=== PATIENT | female | born 1965 | race Caucasian/White ===

== ENCOUNTER 2018-02-05 07:12 | Inpatient (IN) | payer OTHER ==
[2018-02-05] MEDS ORDERED: ALBUTEROL NEBULIZED 2.5 MG/3 ML INHALATION STA ×2 (07:14→08:28)
[2018-02-05] MEDS ORDERED: methylPREDNISolone SOD SUCCI 125 MG/2 ML VIAL IV STA (07:14)
[2018-02-05] MEDS ORDERED: IPRATROPIUM 0.5 MG/2.5 ML NEBU INHALATION STA (07:14)
--- NOTE | 2018-02-05 07:17 | ED ---
General Adult HPI - General Stated complaint: JALEEL Time Seen by Provider: 02/05/18 07:14 Source: patient, RN notes reviewed, old records reviewed - History of Present Illness Initial comments: 52-year-old female history of asthma presents with 1 week of worsening cough and dyspnea. Patient has been out of her nebulized albuterol for the past one week. She is a current every day smoker. Denies chest pain associated with her symptoms. Denies fever or chills. Cough was initially productive but patient states that it has become dry over the past several days. Denies abdominal pain nausea vomiting. Denies lower extremity swelling or calf pain. - Related Data Home Medications Medication Instructions Recorded Confirmed Albuterol Sulfate [Ventolin HFA] 2 puff INHALATION RT-Q4H PRN 09/25/13 12/31/15 Albuterol Nebulized [Ventolin 2.5 mg INHALATION RT-BID 10/12/14 12/31/15 Nebulized] Dextroamphetamine/Amphetamine 20 mg PO BID 12/31/15 12/31/15 [Adderall] QUEtiapine [SEROquel] 100 mg PO HS 12/31/15 12/31/15 Venlafaxine HCl ER [Effexor XR] 150 mg PO DAILY 12/31/15 12/31/15 buPROPion SR [Wellbutrin SR] 150 mg PO BID 12/31/15 12/31/15 Previous Rx's Medication Instructions Recorded ALPRAZolam [Xanax] 1 mg PO Q8H PRN #20 tablet 01/02/16 Azithromycin [Zithromax] 500 mg PO DAILY #4 tab 01/02/16 Budesonide-Formot 160-4.5 Mcg 2 puff INHALATION RT-BID #1 puff 01/02/16 [Symbicort 160-4.5 Mcg Inhaler] HYDROcodone/APAP 10-325MG [[place] 1 tab PO TID PRN #20 tab 01/02/16 10-325] Ipratropium-Albuterol Nebulize 3 ml INHALATION QID #120 ampul.neb 01/02/16 [Duoneb 0.5 mg-3 mg/3 ml Soln] Nicotine 21Mg/24Hr Patch [Habitrol] 1 patch TRANSDERM DAILY #30 patch 01/02/16 predniSONE 10 mg PO DIRECTED #40 tab 01/02/16 Allergies Allergy/AdvReac Type Severity Reaction Status Date / Time No Known Allergies Allergy Verified 02/05/18 07:18 Review of Systems ROS Statement: Those systems with pertinent positive or pertinent negative responses have been documented in the HPI. ROS Other: All systems not noted in ROS Statement are negative. Past Medical History Past Medical History: COPD, Hearing Disorder / Deafness, Hypertension Additional Past Medical History / Comment(s): 10/12/14 Pt presented to [facility] ER with difficulty in breathing with onset a day or so ago. Pt has an occasional nonproductive cough. Pt is currently in ER on bipap. Other HX: bilateral [place]-left worse than right, leakage of urine, states she has high BP; not on medication, Upper and lower BACK PAIN, EMPHYSEMA, trachial bronchitis, RLS, insomnia. History of Any Multi-Drug Resistant Organisms: None Reported Past Surgical History: Ear Surgery Additional Past Surgical History / Comment(s): Multiple bilateral ear tubes as child; has had L ear reconstruction; has been told she needs hearing Aides Past Anesthesia/Blood Transfusion Reactions: No Reported Reaction Additional Past Anesthesia/Blood Transfusion Reaction / Comment(s): Pt has no problems with anesthetics and has never recieved blood. Past Psychological History: ADD/ADHD, Bipolar, Depression, Panic Disorder Additional Psychological History / Comment(s): Pt lives with maria eugenia. She is normally independent. She is hearing impaired. She uses a cane prn. She does not drive- her friend or someone from [facility] drive her. She has a nebulizer. She does not have home oxygen. Smoking Status: Current every day smoker Past Alcohol Use History: None Reported Additional Past Alcohol Use History / Comment(s): Pt started smoking in 1984 and used to smoke approx. 2 ppd for possibly 40 yrs. She recently cut down to 10 cigs a day about 2 weeks ago and the past 3-4 days she has smoked 3 cigs a day. Past Drug Use History: None Reported - Past Family History Mother Family Medical History: Cancer Additional Family Medical History / Comment(s): Mother had "a few kinds of cancers" and from cancer at age 60 yrs. Father History Unknown: Yes Family Medical History: Unable to Obtain Additional Family Medical History / Comment(s): Pt does not know her father. General Exam General appearance: alert, in no apparent distress Head exam: Present: atraumatic, normocephalic Eye exam: Present: normal appearance, PERRL ENT exam: Present: normal exam Respiratory exam: Present: respiratory distress, wheezes, accessory muscle use, decreased breath sounds, prolonged expiratory Cardiovascular Exam: Present: normal rhythm, tachycardia GI/Abdominal exam: Present: soft. Absent: distended, tenderness Extremities exam: Present: normal inspection, normal capillary refill. Absent: pedal edema, calf tenderness Neurological exam: Present: alert, oriented X3, CN II-XII intact, motor sensory deficit Psychiatric exam: Present: normal affect, normal mood Skin exam: Present: warm, dry, intact. Absent: cyanosis, diaphoretic Course Vital Signs 02/05/18 02/05/18 02/05/18 07:18 07:27 07:45 Temperature 98.1 F Pulse Rate 116 H 106 H 111 H Respiratory 36 H Rate Blood Pressure 148/104 O2 Sat by Pulse 96 Oximetry 02/05/18 02/05/18 02/05/18 08:23 08:33 08:42 Temperature Pulse Rate 111 H 110 H 112 H Respiratory 30 H Rate Blood Pressure 146/86 O2 Sat by Pulse 97 Oximetry EKG Findings - EKG Comments: EKG Findings:: EKG: Sinus tachycardia, possible left atrial enlargement, incomplete right bundle branch block, rate of 113, [place] interval 166, QRS duration 92, QTC 441, no ST segment elevation Medical Decision Making - Medical Decision Making 52-year-old female history of COPD and asthma presenting with dyspnea and cough. Patient is in moderate respiratory distress on initial evaluation. Exam consistent with COPD. Chest x-ray obtained, negative for focal pneumonia, normal CBC, normal CMP. Patient started on IV antibiotics, given albuterol, Atrovent in the emergency department. She will be admitted for further treatment of COPD exacerbation. Case discussed with admitting physician Dr. Jane, she will accept admission. Pulmonology placed on consult. - Lab Data Result diagrams: 02/05/18 07:25 02/05/18 07:25 Lab Results 02/05/18 02/05/18 02/05/18 Range/Units 07:25 07:25 07:25 WBC 5.7 (3.8-10.6) k/uL RBC 5.03 (3.80-5.40) m/uL Hgb 15.6 (11.4-16.0) gm/dL Hct 48.1 H (34.0-46.0) % MCV 95.5 (80.0-100.0) fL MCH 30.9 (25.0-35.0) pg MCHC 32.4 (31.0-37.0) g/dL RDW 13.1 (11.5-15.5) % Plt Count 227 (150-450) k/uL Neutrophils % 56 % Lymphocytes % 27 % Monocytes % 4 % Eosinophils % 11 % Basophils % 1 % Neutrophils # 3.2 (1.3-7.7) k/uL Lymphocytes # 1.5 (1.0-4.8) k/uL Monocytes # 0.2 (0-1.0) k/uL Eosinophils # 0.6 (0-0.7) k/uL Basophils # 0.0 (0-0.2) k/uL PT (9.0-12.0) sec INR (<1.2) APTT (22.0-30.0) sec Sodium 141 (137-145) mmol/L Potassium 4.3 (3.5-5.1) mmol/L Chloride 107 (98-107) mmol/L Carbon Dioxide 26 (22-30) mmol/L Anion Gap 8 mmol/L BUN 11 (7-17) mg/dL Creatinine 0.61 (0.52-1.04) mg/dL Est GFR (CKD-EPI)AfAm >90 (>60 ml/min/1.73 sqM) Est GFR (CKD-EPI)NonAf >90 (>60 ml/min/1.73 sqM) Glucose 138 H (74-99) mg/dL Plasma Lactic Acid Sedrick (0.7-2.0) mmol/L Calcium 9.5 (8.4-10.2) mg/dL Magnesium 2.0 (1.6-2.3) mg/dL Total Bilirubin 0.3 (0.2-1.3) mg/dL AST 17 (14-36) U/L ALT 28 (9-52) U/L Alkaline Phosphatase 78 (38-126) U/L Total Creatine Kinase 41 (30-135) U/L CK-MB (CK-2) 1.4 (0.0-2.4) ng/mL CK-MB (CK-2) Rel Index 3.4 Troponin I 0.017 (0.000-0.034) ng/mL NT-Pro-B Natriuret Pep pg/mL Total Protein 6.7 (6.3-8.2) g/dL Albumin 4.0 (3.5-5.0) g/dL 02/05/18 02/05/18 02/05/18 Range/Units 07:25 07:25 07:25 WBC (3.8-10.6) k/uL RBC (3.80-5.40) m/uL Hgb (11.4-16.0) gm/dL Hct (34.0-46.0) % MCV (80.0-100.0) fL MCH (25.0-35.0) pg MCHC (31.0-37.0) g/dL RDW (11.5-15.5) % Plt Count (150-450) k/uL Neutrophils % % Lymphocytes % % Monocytes % % Eosinophils % % Basophils % % Neutrophils # (1.3-7.7) k/uL Lymphocytes # (1.0-4.8) k/uL Monocytes # (0-1.0) k/uL Eosinophils # (0-0.7) k/uL Basophils # (0-0.2) k/uL PT 9.4 (9.0-12.0) sec INR 0.9 (<1.2) APTT 25.0 (22.0-30.0) sec Sodium (137-145) mmol/L Potassium (3.5-5.1) mmol/L Chloride (98-107) mmol/L Carbon Dioxide (22-30) mmol/L Anion Gap mmol/L BUN (7-17) mg/dL Creatinine (0.52-1.04) mg/dL Est GFR (CKD-EPI)AfAm (>60 ml/min/1.73 sqM) Est GFR (CKD-EPI)NonAf (>60 ml/min/1.73 sqM) Glucose (74-99) mg/dL Plasma Lactic Acid Sedrick 0.7 (0.7-2.0) mmol/L Calcium (8.4-10.2) mg/dL Magnesium (1.6-2.3) mg/dL Total Bilirubin (0.2-1.3) mg/dL AST (14-36) U/L ALT (9-52) U/L Alkaline Phosphatase (38-126) U/L Total Creatine Kinase (30-135) U/L CK-MB (CK-2) (0.0-2.4) ng/mL CK-MB (CK-2) Rel Index Troponin I (0.000-0.034) ng/mL NT-Pro-B Natriuret Pep 16 pg/mL Total Protein (6.3-8.2) g/dL Albumin (3.5-5.0) g/dL Critical Care Time Critical Care Time: Yes Total Critical Care Time: 35 Disposition Clinical Impression: Acute exacerbation of chronic obstructive airways disease Disposition: ADMITTED IP TO THIS HOSP Condition: Stable Is patient prescribed a controlled substance at d/c from ED?: No Referrals: Natasha Figueroa MD [Primary Care Provider] - 1-2 days Decision to Admit Reason: Admit from EC Decision Date: 02/05/18 Decision Time: 08:48
[2018-02-05 07:48] LABS: INR 0.9 (<1.2); Prothrombin Time 9.4 sec (9.0-12.0)
[2018-02-05 07:52] LABS: ALT 28 U/L (9-52); AST 17 U/L (14-36); Alkaline Phosphatase 78 U/L (38-126); Anion Gap 8 mmol/L; Basophils % (A) 1 %; Blood Urea Nitrogen 11 mg/dL (7-17); Calcium 9.5 mg/dL (8.4-10.2); Carbon Dioxide 26 mmol/L (22-30); Chloride 107 mmol/L (98-107); Eosinophils # (A) 0.6 k/uL (0-0.7); Eosinophils % (A) 11 %; Glucose 138 mg/dL (74-99); HCT 48.1 % (34.0-46.0); HGB 15.6 gm/dL (11.4-16.0); Lymphocytes # (A) 1.5 k/uL (1.0-4.8); Lymphocytes % (A) 27 %; MCH 30.9 pg (25.0-35.0); MCHC 32.4 g/dL (31.0-37.0); MCV 95.5 fL (80.0-100.0); Mean Platelet Volume 7.2; Monocytes # (A) 0.2 k/uL (0-1.0); Monocytes % (A) 4 %; Neutrophils # (A) 3.2 k/uL (1.3-7.7); Neutrophils % (A) 56 %; Platelet Count 227 k/uL (150-450); Potassium 4.3 mmol/L (3.5-5.1); RBC 5.03 m/uL (3.80-5.40); RDW 13.1 % (11.5-15.5); Sodium 141 mmol/L (137-145); Total Bilirubin 0.3 mg/dL (0.2-1.3); Total Protein 6.7 g/dL (6.3-8.2); WBC 5.7 k/uL (3.8-10.6)
[2018-02-05 08:14] LABS: Creatine Kinase MB 1.4 ng/mL (0.0-2.4); Troponin I 0.017 ng/mL (0.000-0.034)
[2018-02-05] MEDS ORDERED: IPRATROPIUM-ALBUTEROL 3 ML NEB INHALATION STA (08:27)
--- NOTE | 2018-02-05 08:36 | XR ---
EXAMINATION TYPE: XR chest 2V DATE OF EXAM: 02/05/2018 HISTORY: difficulty breathing. REFERENCE: Previous study dated 12/31/2015. FINDINGS: Lung volumes are prominent. The lungs are clear. Pleural space are clear. The heart is not enlarged. IMPRESSION: CORRELATE FOR COPD.
[2018-02-05] MEDS ORDERED: ASPIRIN 325 MG TAB PO STA (08:44)
[2018-02-05] MEDS ORDERED: IPRATROPIUM-ALBUTEROL 3 ML NEB INHALATION PRN (08:45)
[2018-02-05] MEDS ORDERED: SODIUM CHLORIDE 0.9% 500 ML 500 ML IV ONE (08:46)
[2018-02-05] MEDS ORDERED: ALBUTEROL NEBULIZED 2.5 MG/3 ML INHALATION PRN (08:46)
[2018-02-05] MEDS: AZITHROMYCIN 500 MG TAB PO SCH (09:15)
[2018-02-05] MEDS: SODIUM CHLORIDE 0.9% 1,000 ML IV SCH ×2 (09:18→19:59)
[2018-02-05 10:47] VITALS: BMI 23.0
[2018-02-05] MEDS: IPRATROPIUM-ALBUTEROL 3 ML NEB INHALATION SCH ×3 (11:12→19:56)
[2018-02-05] MEDS ORDERED: ACETAMINOPHEN TAB 325 MG TAB PO PRN (11:38)
[2018-02-05] MEDS ORDERED: NALOXONE 0.4 MG/ML 1 ML VIAL IV PRN (11:38)
--- NOTE | 2018-02-05 11:50 | P.HPIM ---
History of Present Illness H&P Date: 02/05/18 Chief Complaint: COPD Exacerbation 52-year-old female with past medical history of bipolar disorder, anxiety and COPD presents the ED for shortness of breath cough. Patient reports a cough productive of green sputum for the past 2 weeks. Her cough is associated with shortness of breath and wheezing. She's tried cough medications [id number]. Over the last 3-4 days, her wheezing has gotten so bad which prompted her to come to the ED. Patient reports a trigger being changes in weather and overexertion. Patient reports smoking 1-2 packs of cigarettes daily since age 21. She denies any alcohol or illicit drug use. Patient denies any headaches, nausea, vomiting, fever, palpitations, changes in urination or bowel habits. No changes in appetite or weight. She denies any exertional shortness of breath or orthopnea. Patient denies any lower extremity swelling as well. Patient reports chest pain, but only when she coughs. In the ED, CBC and CMP were unremarkable except for a glucose of 138. Initial troponin was 0.017, EKG showing sinus tachycardia with incomplete RBBB. BNP was 16. Chest x-ray is consistent with COPD. Patient is admitted for COPD exacerbation, pulmonology on consult. Review of Systems All systems: negative Past Medical History Past Medical History: COPD, Hearing Disorder / Deafness, Hypertension Additional Past Medical History / Comment(s): Other HX: Upper and lower BACK PAIN, EMPHYSEMA, trachial bronchitis, RLS, insomnia. History of Any Multi-Drug Resistant Organisms: None Reported Past Surgical History: Ear Surgery Additional Past Surgical History / Comment(s): Multiple bilateral ear tubes as child; has had L ear reconstruction; has been told she needs hearing Aides Past Anesthesia/Blood Transfusion Reactions: No Reported Reaction Additional Past Anesthesia/Blood Transfusion Reaction / Comment(s): Pt has no problems with anesthetics and has never recieved blood. Past Psychological History: ADD/ADHD, Bipolar, Depression, Panic Disorder Additional Psychological History / Comment(s): She has a nebulizer. She have home oxygen, she uses prn, 3-4 liters. 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 Smoking Status: Current every day smoker Past Alcohol Use History: Occasional Past Drug Use History: None Reported - Past Family History Mother Family Medical History: Cancer Additional Family Medical History / Comment(s): Mother had "a few kinds of cancers" and from cancer at age 60 yrs. Father History Unknown: Yes Family Medical History: Unable to Obtain Additional Family Medical History / Comment(s): Pt does not know her father. Medications and Allergies Home Medications Medication Instructions Recorded Confirmed Type Albuterol Sulfate [Ventolin HFA] 2 puff INHALATION RT-Q4H PRN 09/25/13 02/05/18 History Albuterol Nebulized [Ventolin 2.5 mg INHALATION RT-Q6H PRN 10/12/14 02/05/18 History Nebulized] QUEtiapine [SEROquel] 100 mg PO HS 12/31/15 02/05/18 History Budesonide-Formot 160-4.5 Mcg 2 puff INHALATION RT-BID #1 puff 01/02/16 Rx [Symbicort 160-4.5 Mcg Inhaler] HYDROcodone/APAP 10-325MG [[place] 1 tab PO TID PRN #20 tab 01/02/16 02/05/18 Rx 10-325] ALPRAZolam [Xanax] 1 mg PO TID PRN 02/05/18 02/05/18 History Sertraline [Zoloft] 150 mg PO DAILY 02/05/18 02/05/18 History predniSONE 5 mg PO DAILY 02/05/18 02/05/18 History rOPINIRole HCL [Requip] 0.5 mg PO HS 02/05/18 02/05/18 History Allergies Allergy/AdvReac Type Severity Reaction Status Date / Time No Known Allergies Allergy Verified 02/05/18 11:17 Physical Exam Vitals: Vital Signs Temp Pulse Pulse Resp BP BP Pulse Ox 02/05/18 11:24 102 H 02/05/18 11:14 100 02/05/18 10:00 97.9 F 111 H 22 135/78 96 02/05/18 09:22 98.2 F 117 H 28 H 116/78 95 02/05/18 08:42 112 H 02/05/18 08:33 110 H 02/05/18 08:23 111 H 30 H 146/86 97 02/05/18 07:45 111 H 02/05/18 07:27 106 H 02/05/18 07:18 98.1 F 116 H 36 H 148/104 96 Intake and Output 11/09/18 11/10/18 11/10/18 22:59 06:59 14:59 Other: Weight 58.9 kg General: [non toxic], [no distress], [appears at stated age] Derm: [warm], [dry] Head: [atraumatic], [normocephalic], [symmetric] Eyes: [EOMI], [no lid lag], [anicteric sclera] Mouth: [no lip lesion], [mucus membranes moist] Cardiovascular: [S1S2 reg], [no murmur], [positive posterior tibial pulse bilateral], Lungs: [Decreased breath sounds with poor air entry bilaterally with expiratory wheezes], [no rhonchi, no rales] , [no accessory muscle use] Abdominal: [soft], [ nontender to palpation], [no guarding], [no appreciable organomegaly] Ext: [no gross muscle atrophy], [no edema], [no contractures] Neuro: [ CN II-XI grossly intact], [no focal neuro deficits] Psych: [Alert], [oriented], [appropriate affect] Results CBC & Chem 7: 02/05/18 07:25 02/05/18 07:25 Labs: Abnormal Lab Results - Last 24 Hours (Table) 02/05/18 02/05/18 Range/Units 07:25 07:25 Hct 48.1 H (34.0-46.0) % Glucose 138 H (74-99) mg/dL Thrombosis Risk Factor Assmnt - Choose All That Apply Any of the Below Risk Factors Present?: Yes Each Factor Represents 1 point: Abnormal pulmonary function (COPD), Age 41-60 years Other Risk Factors: No Other congenital or acquired thrombophilia - If yes, enter type in comment: No Thrombosis Risk Factor Assessment Total Risk Factor Score: 2 Thrombosis Risk Factor Assessment Level: Low Risk Assessment and Plan Assessment: Assessment and Plan 1. COPD exacerbation: BNP 16, low suspicion for HF. Likely triggered by smoking , changes in weather and viral URI/chronic bronchitis. Patient is afebrile with no leukocytosis. CXR findings consistent with COPD. O2 per NC to maintain O2 sat > 92%. Continue DuoNeb QID scheduled, Symbicort 2 puff BID, SoluMedrol 60 mg IV Q6H. Start Azithromycin 500 mg PO QD x 3 days for acute bronchitis. Pain management with Tylenol and [place] PRN (chest pain associated only with cough). FU BCx, Pulmonology consult 2. Bipolar disorder and Anxiety: Stable. Continue Seroquel 100 mg PO QHS, Sertraline 150 mg PO QD and Xanax 1 mg PO TID PRN. 3. RLS: Stable. Continue Ropinirole 0.5 mg PO QHS. 4. DVT Prophylaxis: SCD boots only.
[2018-02-05 11:51] LABS: Glucose,Whole Blood 182 mg/dL (75-99)
[2018-02-05] MEDS: ALPRAZolam 1 MG TAB PO PRN ×2 (12:36→22:24)
[2018-02-05] MEDS: HYDROcodone/APAP 10-325MG 1 EACH TAB PO PRN ×2 (12:38→19:57)
[2018-02-05] MEDS: INSULIN ASPART 100 UNIT/ML 1 ML 10 ML VIAL SQ SCH ×3 (12:38→20:54)
[2018-02-05] MEDS: methylPREDNISolone SOD SUCCI 125 MG/2 ML VIAL IV SCH ×3 (12:42→23:31)
--- NOTE | 2018-02-05 12:53 | P.CNPUL ---
History of Present Illness Consult date: 02/05/18 Reason for consult: dyspnea, cough, COPD, hypoxemia, abnormal CXR/CT Chief complaint: COPD exacerbation, shortness of breath History of present illness: Pulmonary/critical care consultation dated 02/05/2018 52-year-old female with a history of COPD. The patient has a history of heavy tobacco use. The patient sees a Dr. Figueroa as her primary doctor. She still smoking. She's been smoking for many many years. The patient comes in with chest tightness wheezing coughing and shortness of breath. Coughing up some white phlegm. No fever or chills. Not coughing up any blood. She's been counseled about the importance of smoking cessation but continues to smoke. She sees my partner. She apparently has an FEV1 that is 20% of predicted giving her stage IV chronic lung disease. In addition to COPD, she has a history of hearing disorder and hypertension. She also suffers from insomnia and restless leg syndrome. Review of Systems A 14 point review of system is positive for shortness of breath and tightness wheezing and cough. She is producing a small amount of white phlegm. Not coughing up any blood. Past Medical History Past Medical History: COPD, Hearing Disorder / Deafness, Hypertension Additional Past Medical History / Comment(s): Other HX: Upper and lower BACK PAIN, EMPHYSEMA, trachial bronchitis, RLS, insomnia. History of Any Multi-Drug Resistant Organisms: None Reported Past Surgical History: Ear Surgery Additional Past Surgical History / Comment(s): Multiple bilateral ear tubes as child; has had L ear reconstruction; has been told she needs hearing Aides Past Anesthesia/Blood Transfusion Reactions: No Reported Reaction Additional Past Anesthesia/Blood Transfusion Reaction / Comment(s): Pt has no problems with anesthetics and has never recieved blood. Past Psychological History: ADD/ADHD, Bipolar, Depression, Panic Disorder Additional Psychological History / Comment(s): She has a nebulizer. She have home oxygen, she uses prn, 3-4 liters. 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 Smoking Status: Current every day smoker Past Alcohol Use History: Occasional Past Drug Use History: None Reported - Past Family History Mother Family Medical History: Cancer Additional Family Medical History / Comment(s): Mother had "a few kinds of cancers" and from cancer at age 60 yrs. Father History Unknown: Yes Family Medical History: Unable to Obtain Additional Family Medical History / Comment(s): Pt does not know her father. Medications and Allergies Home Medications Medication Instructions Recorded Confirmed Type Albuterol Sulfate [Ventolin HFA] 2 puff INHALATION RT-Q4H PRN 09/25/13 02/05/18 History Albuterol Nebulized [Ventolin 2.5 mg INHALATION RT-Q6H PRN 10/12/14 02/05/18 History Nebulized] QUEtiapine [SEROquel] 100 mg PO HS 12/31/15 02/05/18 History Budesonide-Formot 160-4.5 Mcg 2 puff INHALATION RT-BID #1 puff 01/02/16 Rx [Symbicort 160-4.5 Mcg Inhaler] HYDROcodone/APAP 10-325MG [[place] 1 tab PO TID PRN #20 tab 01/02/16 02/05/18 Rx 10-325] ALPRAZolam [Xanax] 1 mg PO TID PRN 02/05/18 02/05/18 History Sertraline [Zoloft] 150 mg PO DAILY 02/05/18 02/05/18 History predniSONE 5 mg PO DAILY 02/05/18 02/05/18 History rOPINIRole HCL [Requip] 0.5 mg PO HS 02/05/18 02/05/18 History Allergies Allergy/AdvReac Type Severity Reaction Status Date / Time No Known Allergies Allergy Verified 02/05/18 11:17 Physical Exam Osteopathic Statement: *. No significant issues noted on an osteopathic structural exam other than those noted in the History and Physical/Consult. Vitals: Vital Signs Temp Pulse Pulse Resp BP BP Pulse Ox 02/05/18 11:24 102 H 02/05/18 11:14 100 02/05/18 10:00 97.9 F 111 H 22 135/78 96 02/05/18 09:22 98.2 F 117 H 28 H 116/78 95 02/05/18 08:42 112 H 02/05/18 08:33 110 H 02/05/18 08:23 111 H 30 H 146/86 97 02/05/18 07:45 111 H 02/05/18 07:27 106 H 02/05/18 07:18 98.1 F 116 H 36 H 148/104 96 Intake and Output 02/04/18 02/05/18 02/05/18 22:59 06:59 14:59 Other: Weight 58.9 kg No acute distress, oriented 3. Nasal O2 in place. No audible wheezing. No use of accessory muscles. HEENT examination is grossly unremarkable. Mucous membranes are moist. No oral lesions. Neck supple. Full range of motion. No adenopathy thyromegaly or neck vein distention. Cardiovascular examination reveals regular rhythm rate. S1-S2 normal. No S3 or S4. No discernible murmur noted. Lungs reveal severe inspiratory and expiratory wheezes and rhonchi. There is prolongation on forced maneuver. The patient coughs and wheezes on forced maneuver. No crackles. Breath sounds are equal bilaterally but diminished throughout. Abdomen soft bowel sounds are heard. No masses or tenderness. Extremities are intact. No cyanosis clubbing or edema. Skin is without rash or lesion. Neurologic examination is brief but nonfocal. Results - Laboratory Findings CBC and BMP: 02/05/18 07:25 02/05/18 07:25 PT/INR, D-dimer PT 9.4 sec (9.0-12.0) 02/05/18 07:25 INR 0.9 (<1.2) 02/05/18 07:25 Abnormal lab findings: Abnormal Labs 02/05/18 02/05/18 02/05/18 07:25 07:25 11:49 Hct 48.1 H Glucose 138 H POC Glucose (mg/dL) 182 H - Diagnostic Findings Chest x-ray: report reviewed, image reviewed (Chest x-ray, labs and medications are reviewed.) Assessment and Plan Assessment: Assessment COPD exacerbation possibly, complicated by tracheobronchitis, without lucia pneumonia. Acute on chronic hypoxemic respiratory failure secondary to stage IV/end-stage COPD with an FEV1 that is 20% of predicted History of hypertension. History of insomnia History of restless leg syndrome History of deafness History of ongoing tobacco use with nicotine addiction despite counseling Plan: Plan dated 02/05/2018 The patient's chest x-ray did not show an infiltrate. She may have a mild tracheobronchitis. The patient seemed be on a short acting beta agonist, a short acting muscarinic antagonist, a long-acting beta agonist, and inhaled corticosteroid. In addition, she should be on a systemic corticosteroids and a short course of oral antibiotics. She is again counseled about the importance of smoking cessation. She continues to smoke despite counseling. She is on oxygen therapy as well. Additional recommendations and suggestions are forthcoming. Prognosis is poor. Time with Patient: Greater than 30
[2018-02-05 17:10] LABS: Glucose,Whole Blood 151 mg/dL (75-99)
[2018-02-05 18:28] LABS: Hemoglobin A1C 5.9 % (4.0-6.0)
[2018-02-05] MEDS: SYMBICORT 160-4.5 MCG INHALER INHALATION SCH (19:56)
[2018-02-05] MEDS: QUEtiapine 100 MG TAB PO SCH (19:57)
[2018-02-05 20:39] LABS: Glucose,Whole Blood 194 mg/dL (75-99)
[2018-02-06] MEDS: methylPREDNISolone SOD SUCCI 125 MG/2 ML VIAL IV SCH ×4 (05:11→23:20)
[2018-02-06] MEDS: IPRATROPIUM-ALBUTEROL 3 ML NEB INHALATION SCH ×4 (06:51→19:24)
[2018-02-06] MEDS: SYMBICORT 160-4.5 MCG INHALER INHALATION SCH ×2 (06:51→19:22)
[2018-02-06 07:16] LABS: Glucose,Whole Blood 176 mg/dL (75-99)
[2018-02-06] MEDS: AZITHROMYCIN 500 MG TAB PO SCH (07:50)
[2018-02-06] MEDS: SERTRALINE 50 MG TAB PO SCH (07:50)
[2018-02-06] MEDS: INSULIN ASPART 100 UNIT/ML 1 ML 10 ML VIAL SQ SCH ×4 (07:51→20:55)
[2018-02-06] MEDS: HYDROcodone/APAP 10-325MG 1 EACH TAB PO PRN ×3 (07:55→23:19)
[2018-02-06] MEDS: ALPRAZolam 1 MG TAB PO PRN ×3 (09:59→23:19)
[2018-02-06] MEDS: SODIUM CHLORIDE 0.9% 1,000 ML IV SCH ×2 (11:23→23:20)
[2018-02-06 11:47] LABS: Glucose,Whole Blood 207 mg/dL (75-99)
--- NOTE | 2018-02-06 12:39 | P.PN ---
Subjective Progress Note Date: 02/06/18 Principal diagnosis: COPD exacerbation Patient was seen and examined. No acute events overnight. Patient continues to complain of cough productive of yellow sputum. Her shortness of breath has improved. She denies any wheezing, chest pain, palpitations. States she has intermittent home oxygen. Objective - Vital Signs Vital signs: Vital Signs Temp 97.6 F 02/06/18 05:38 Pulse 104 H 02/06/18 10:45 Resp 20 02/06/18 05:38 BP 102/64 02/06/18 05:38 Pulse Ox 98 02/06/18 05:38 Intake & Output 02/05/18 02/06/18 02/06/18 18:59 06:59 18:59 Intake Total 200 Balance 200 Weight 58.9 kg Intake: Oral 200 Other: # Voids 0 2 # Bowel Movements 0 - Exam General: [non toxic], [no distress], [appears at stated age] Derm: [warm], [dry] Head: [atraumatic], [normocephalic], [symmetric] Eyes: [EOMI], [no lid lag], [anicteric sclera] Mouth: [no lip lesion], [mucus membranes moist] Cardiovascular: [S1S2 reg], [no murmur], [positive posterior tibial pulse bilateral], Lungs: [Decreased breath sounds with poor air entry bilaterally with mild expiratory wheezes (improved from yesterday)], [no rhonchi, no rales] , [no accessory muscle use] Abdominal: [soft], [ nontender to palpation], [no guarding], [no appreciable organomegaly] Ext: [no gross muscle atrophy], [no edema], [no contractures] Neuro: [no focal neuro deficits] Psych: [Alert], [oriented], [appropriate affect] - Labs CBC & Chem 7: 02/05/18 07:25 02/05/18 07:25 Labs: Abnormal Lab Results - Last 24 Hours (Table) 02/05/18 02/05/18 02/06/18 Range/Units 17:09 20:38 07:15 POC Glucose (mg/dL) 151 H 194 H 176 H (75-99) mg/dL 02/06/18 Range/Units 11:45 POC Glucose (mg/dL) 207 H (75-99) mg/dL Microbiology - Last 24 Hours (Table) 02/05/18 07:25 Blood Culture - Preliminary Blood No Growth after 24 hours Assessment and Plan Assessment: Assessment and Plan 1. COPD exacerbation: BNP 16, low suspicion for HF. Likely triggered by smoking , changes in weather and viral URI/chronic bronchitis. Patient is afebrile with no leukocytosis. CXR findings consistent with COPD. O2 per NC to maintain O2 sat > 92%. Continue DuoNeb QID scheduled, Symbicort 2 puff BID, SoluMedrol 60 mg IV Q6H. continue Azithromycin 500 mg PO QD x 3 days for acute bronchitis. Pain management with Tylenol and [place] PRN (chest pain associated only with cough).BCx prelim negative after 24H. FU BCx (final), Pulmonology consult 2. Bipolar disorder and Anxiety: Stable. Continue Seroquel 100 mg PO QHS, Sertraline 150 mg PO QD and Xanax 1 mg PO TID PRN. 3. RLS: Stable. Continue Ropinirole 0.5 mg PO QHS. 4. DVT Prophylaxis: SCD boots only. Patient is continuously improving. She is still wheezing bilaterally, though improved from yesterday. She is saturating high 90s on 3 L nasal cannula. 6 minute walk test tomorrow. Transition oral steroids tomorrow. Likely discharge tomorrow.
--- NOTE | 2018-02-06 14:14 | P.PN ---
Subjective Progress Note Date: 02/06/18 Principal diagnosis: Shortness of breath, COPD exacerbation Progress note dated 02/06/2018 A 52-year-old female who was admitted to the [facility] for COPD exacerbation. She has a history of ongoing and heavy tobacco use. In fact, she sees my partner in the office and she has an FEV1 that is apparently 20% of predicted having her stage IV chronic lung disease. The patient only 52 years of age. She is quite sick. She's got ongoing cough wheezing and shortness of breath. She is a bit improved today compared to yesterday. She is on all the appropriate medications including short acting beta agonist, short acting muscarinic antagonist, long-acting beta agonist, inhaled corticosteroids, and systemic corticosteroids. We significantly corporate travel counselor her yesterday about the importance of smoking cessation. I suspect she will stop smoking. In addition , she has a history of deafness and hypertension as well as restless leg syndrome. Objective - Vital Signs Vital signs: Vital Signs Temp 97.6 F 02/06/18 05:38 Pulse 104 H 02/06/18 10:45 Resp 20 02/06/18 05:38 BP 102/64 02/06/18 05:38 Pulse Ox 98 02/06/18 05:38 Intake & Output 02/05/18 02/06/18 02/06/18 18:59 06:59 18:59 Intake Total 200 Balance 200 Weight 58.9 kg Intake: Oral 200 Other: # Voids 0 2 # Bowel Movements 0 - Exam No acute distress, oriented 3. Nasal O2 in place. No audible wheezing. HEENT examination is grossly unremarkable. Mucous membranes are moist. No oral lesions. Neck supple. Full range of motion. No adenopathy thyromegaly or neck vein distention. Cardiovascular examination reveals regular rhythm rate. S1-S2 normal. No S3 or S4. No discernible murmur noted. Lungs reveal bilateral inspiratory and expiratory wheezes and rhonchi. There is prolongation on forced maneuver. No crackles. Breath sounds are diminished throughout. Abdomen soft bowel sounds are heard. No masses or tenderness. Extremities are intact. No cyanosis clubbing or edema. Skin is without rash or lesion. Neurologic examination is brief but nonfocal. - Labs CBC & Chem 7: 02/05/18 07:25 02/05/18 07:25 Labs: Abnormal Lab Results - Last 24 Hours (Table) 02/05/18 02/05/18 02/06/18 Range/Units 17:09 20:38 07:15 POC Glucose (mg/dL) 151 H 194 H 176 H (75-99) mg/dL 02/06/18 Range/Units 11:45 POC Glucose (mg/dL) 207 H (75-99) mg/dL Microbiology - Last 24 Hours (Table) 02/05/18 07:25 Blood Culture - Preliminary Blood No Growth after 24 hours Assessment and Plan Assessment: Assessment COPD exacerbation possibly, complicated by tracheobronchitis, without lucia pneumonia. Acute on chronic hypoxemic respiratory failure secondary to stage IV/end-stage COPD with an FEV1 that is 20% of predicted History of hypertension. History of insomnia History of restless leg syndrome History of deafness History of ongoing tobacco use with nicotine addiction despite counseling Plan: Plan dated 02/05/2018 The patient's chest x-ray did not show an infiltrate. She may have a mild tracheobronchitis. The patient seemed be on a short acting beta agonist, a short acting muscarinic antagonist, a long-acting beta agonist, and inhaled corticosteroid. In addition, she should be on a systemic corticosteroids and a short course of oral antibiotics. She is again counseled about the importance of smoking cessation. She continues to smoke despite counseling. She is on oxygen therapy as well. Additional recommendations and suggestions are forthcoming. Prognosis is poor. Plan dated 02/06/2018 The patient remains on all appropriate medications as listed above. She is a bit better today than she was yesterday, not a lot. I don't suspect she'll be discharged before Wednesday or Wednesday. We again spent some time talking to her about the importance of smoking cessation. She continues to smoke more than a pack of cigarettes a day and sometimes 2 packs a day. The patient is a 52 years of age and is ABOUT 80% of her lung function. She does see my partner in the office. Additional recommendations will be made. We will continue to follow. Time with Patient: Less than 30
[2018-02-06 16:47] LABS: Glucose,Whole Blood 237 mg/dL (75-99)
[2018-02-06 20:52] LABS: Glucose,Whole Blood 168 mg/dL (75-99)
[2018-02-06] MEDS: QUEtiapine 100 MG TAB PO SCH (20:55)
[2018-02-07] MEDS: methylPREDNISolone SOD SUCCI 125 MG/2 ML VIAL IV SCH (05:58)
[2018-02-07 06:09] VITALS: BP 103/71; RESP 16; TEMP 97.8
[2018-02-07 07:04] LABS: Glucose,Whole Blood 164 mg/dL (75-99)
[2018-02-07] MEDS: IPRATROPIUM-ALBUTEROL 3 ML NEB INHALATION SCH (07:47)
[2018-02-07] MEDS: SYMBICORT 160-4.5 MCG INHALER INHALATION SCH (07:47)
[2018-02-07 07:48] VITALS: PULSE 96
[2018-02-07] MEDS: SERTRALINE 50 MG TAB PO SCH (08:06)
[2018-02-07] MEDS: AZITHROMYCIN 500 MG TAB PO SCH (08:07)
[2018-02-07] MEDS: INSULIN ASPART 100 UNIT/ML 1 ML 10 ML VIAL SQ SCH (08:07)
[2018-02-07] MEDS: HYDROcodone/APAP 10-325MG 1 EACH TAB PO PRN (08:11)
[2018-02-07] MEDS ORDERED: predniSONE 50 MG TAB PO SCH (09:00)
[2018-02-07] MEDS: ALPRAZolam 1 MG TAB PO PRN (09:25)
--- NOTE | 2018-02-07 10:52 | P.DS ---
Providers Date of admission: 02/05/18 08:45 Expected date of discharge: 02/07/18 Attending physician: Carmen Jane DO Consults: 02/05/18 08:45 Consult Physician Routine Consulting Provider: John Brannon Consult Reason/Comments: COPd Do you want consulting provider notified?: Yes Primary care physician: Natasha Figueroa - Discharge Diagnosis(es) (1) Bipolar disorder Current Visit: Yes Status: Acute (2) Anxiety Current Visit: Yes Status: Acute (3) RLS (restless legs syndrome) Current Visit: Yes Status: Acute (4) COPD exacerbation Current Visit: No Status: Acute Hospital Course: 52-year-old female with past medical history of bipolar disorder, anxiety and COPD presents the ED for shortness of breath cough. Patient reports a cough productive of green sputum for the past 2 weeks. Her cough is associated with shortness of breath and wheezing. She's tried cough medications [id number]. Over the last 3-4 days, her wheezing has gotten so bad which prompted her to come to the ED. Patient reports a trigger being changes in weather and overexertion. Patient reports smoking 1-2 packs of cigarettes daily since age 21. She denies any alcohol or illicit drug use. Patient denies any headaches, nausea, vomiting, fever, palpitations, changes in urination or bowel habits. No changes in appetite or weight. She denies any exertional shortness of breath or orthopnea. Patient denies any lower extremity swelling as well. Patient reports chest pain, but only when she coughs. In the ED, CBC and CMP were unremarkable except for a glucose of 138. Initial troponin was 0.017, EKG showing sinus tachycardia with incomplete RBBB. BNP was 16. Chest x-ray is consistent with COPD. Patient is admitted for COPD exacerbation, pulmonology on consult. With regard to her COPD exacerbation. This is thought to be triggered by smoking and changes in weather combined with a viral URI her chronic bronchitis. BNP was 16 which is low suspicion for heart failure. Patient was afebrile with no leukocytosis on admission chest x-ray showed findings consistent with COPD. Patient was started on oxygen per nasal cannula to maintain an oxygen saturation greater than 92%. She was started on DuoNeb 4 times a day scheduled, Symbicort 2 puff twice a day and Solu-Medrol IV. She was given azithromycin 500 mg by mouth for 3 days. Blood cultures were prelim negative at 48 hours at the time of discharge. Otherwise patient's home medications were resumed for her bipolar disorder, anxiety and restless leg syndrome. Patient was seen and examined prior to discharge. Patient reports great improvement in her breathing. She denies any cough. Her breathing is back to baseline. Patient reports having oxygen at home through her strategic debriefing officer Dr. Rodriguez. Patient is looking for to going home. General: [non toxic], [no distress], [appears at stated age] Derm: [warm], [dry] Head: [atraumatic], [normocephalic], [symmetric] Eyes: [EOMI], [no lid lag], [anicteric sclera] Mouth: [no lip lesion], [mucus membranes moist] Cardiovascular: [S1S2 reg], [no murmur], [positive posterior tibial pulse bilateral], Lungs: [Decreased breath sounds no wheezing], [no rhonchi, no rales] , [no accessory muscle use] Abdominal: [soft], [ nontender to palpation], [no guarding], [no appreciable organomegaly] Ext: [no gross muscle atrophy], [no edema], [no contractures] Neuro: [no focal neuro deficits] Psych: [Alert], [oriented], [appropriate affect] Assessment and Plan 1. COPD exacerbation: BNP 16, low suspicion for HF. Likely triggered by smoking , changes in weather and viral URI/chronic bronchitis. Patient is afebrile with no leukocytosis. CXR findings consistent with COPD. O2 per NC to maintain O2 sat > 92%. Continue DuoNeb QID scheduled, Symbicort 2 puff BID. DC SoluMedrol 60 mg IV Q6H and change to Prednisone taper. Azithromycin 500 mg PO QD x 3 days for acute bronchitis complete. Pain management with Tylenol and [place] PRN ( chest pain associated only with cough). BCx prelim negative after 48H. FU BCx ( final), Pulmonology consult 2. Bipolar disorder and Anxiety: Stable. Continue Seroquel 100 mg PO QHS, Sertraline 150 mg PO QD and Xanax 1 mg PO TID PRN. 3. RLS: Stable. Continue Ropinirole 0.5 mg PO QHS. 4. DVT Prophylaxis: SCD boots only. Patient's last follow-up with her primary care provider within 1-2 days of discharge. Patient advised to follow-up with her strategic debriefing officer Dr. Rodriguez within 1-2 days of discharge. Patient underwent a 6 minute walk test. Oxygen saturation as low as 88% with exertion. She will need oxygen at home. She has all her supplies currently through her strategic debriefing officer Dr. Rodriguez. Advised 1 L continuous nasal cannula until follow-up with pulmonology. This complex discharge took greater than 30 minutes. Pertinent Studies: CXR Patient Condition at Discharge: Stable Plan - Discharge Summary Discharge Rx Participant: No New Discharge Prescriptions: New Albuterol Inhaler [Ventolin Hfa Inhaler] 1 - 2 puff INHALATION RT-Q6H PRN #1 inhaler PRN Reason: Shortness Of Breath Ipratropium-Albuterol Nebulize [Duoneb 0.5 mg-3 mg/3 ml Soln] 3 ml INHALATION RT-QID #90 ampul.neb predniSONE See Taper PO DAILY #24 tab Continue Albuterol Sulfate [Ventolin HFA] 2 puff INHALATION RT-Q4H PRN PRN Reason: asthma Albuterol Nebulized [Ventolin Nebulized] 2.5 mg INHALATION RT-Q6H PRN PRN Reason: Shortness Of Breath QUEtiapine [SEROquel] 100 mg PO HS HYDROcodone/APAP 10-325MG [[place] 10-325] 1 tab PO TID PRN #20 tab PRN Reason: Pain Sertraline [Zoloft] 150 mg PO DAILY rOPINIRole HCL [Requip] 0.5 mg PO HS ALPRAZolam [Xanax] 1 mg PO TID PRN PRN Reason: Anxiety Budesonide-Formot 160-4.5 Mcg [Symbicort 160-4.5 Mcg Inhaler] 2 puff INHALATION RT-BID #1 inhaler Discontinued predniSONE 5 mg PO DAILY Discharge Medication List Albuterol Sulfate [Ventolin HFA] 2 puff INHALATION RT-Q4H PRN 09/25/13 [History] Albuterol Nebulized [Ventolin Nebulized] 2.5 mg INHALATION RT-Q6H PRN 10/12/14 [ History] QUEtiapine [SEROquel] 100 mg PO HS 12/31/15 [History] HYDROcodone/APAP 10-325MG [[place] 10-325] 1 tab PO TID PRN #20 tab 01/02/16 [Rx] ALPRAZolam [Xanax] 1 mg PO TID PRN 02/05/18 [History] Sertraline [Zoloft] 150 mg PO DAILY 02/05/18 [History] rOPINIRole HCL [Requip] 0.5 mg PO HS 02/05/18 [History] Albuterol Inhaler [Ventolin Hfa Inhaler] 1 - 2 puff INHALATION RT-Q6H PRN #1 inhaler 02/07/18 [Rx] Budesonide-Formot 160-4.5 Mcg [Symbicort 160-4.5 Mcg Inhaler] 2 puff INHALATION RT-BID #1 inhaler 02/07/18 [Rx] Ipratropium-Albuterol Nebulize [Duoneb 0.5 mg-3 mg/3 ml Soln] 3 ml INHALATION RT -QID #90 ampul.neb 02/07/18 [Rx] predniSONE See Taper PO DAILY #24 tab 02/07/18 [Rx] Follow up Appointment(s)/Referral(s): Natasha Figueroa MD [Primary Care Provider] - 1-2 days John Brannon MD [STAFF PHYSICIAN] - 1 Week Activity/Diet/Wound Care/Special Instructions: Diet: Regular Please follow-up with your primary care provider within 1-2 days of discharge. Please follow-up with Dr. Brannon her strategic debriefing officer within 1-2 days of discharge. Please take all medications as advised. Discharge Disposition: HOME SELF-CARE
== END 2018-02-07 11:55 | disposition home or self-care (01) | DRG 190 ==
LOC: EC 07:12 → 4MS4W 08:45
PROVIDERS: ADMIT Internal Medicine; ATTEND Internal Medicine
DX: J44.1 Chronic obstructive pulmonary disease with (acute) exacerbation (principal); J96.21 Acute and chronic respiratory failure with hypoxia; Z71.6 Tobacco abuse counseling; F17.210 Nicotine dependence, cigarettes, uncomplicated; F31.9 Bipolar disorder, unspecified; F41.0 Panic disorder [episodic paroxysmal anxiety]; F90.9 Attention-deficit hyperactivity disorder, unspecified type; G25.81 Restless legs syndrome; G47.00 Insomnia, unspecified; H91.90 Unspecified hearing loss, unspecified ear; I10 Essential (primary) hypertension; I45.10 Unspecified right bundle-branch block; Z79.51 Long term (current) use of inhaled steroids; Z99.81 Dependence on supplemental oxygen; R00.0 Tachycardia, unspecified; R07.9 Chest pain, unspecified; J06.9 Acute upper respiratory infection, unspecified; Z79.899 Other long term (current) drug therapy; Z80.9 Family history of malignant neoplasm, unspecified; F41.9 Anxiety disorder, unspecified
CPT/HCPCS: 36415; 71046; 80053; 82550; 82553; 83036; 83605; 83735; 83880; 84484; 85025; 85610; 85730; 87040; 93005; 94640; 94760; 96374; 99291

== ENCOUNTER 2018-09-15 09:33 | Inpatient (IN) | payer OTHER ==
[2018-09-15] MEDS ORDERED: MAGNESIUM SULFATE-D5W PMX 1 GM in DEXTROSE/WATER 1 100ML.BAG IVPB ONE (09:47)
[2018-09-15 10:15] LABS: Basophils % (A) 0 %; Eosinophils # (A) 0.3 k/uL (0-0.7); Eosinophils % (A) 5 %; HCT 53.1 % (34.0-46.0); HGB 17.3 gm/dL (11.4-16.0); Lymphocytes # (A) 1.3 k/uL (1.0-4.8); Lymphocytes % (A) 21 %; MCH 30.8 pg (25.0-35.0); MCHC 32.5 g/dL (31.0-37.0); MCV 94.7 fL (80.0-100.0); Mean Platelet Volume 7.2; Monocytes # (A) 0.3 k/uL (0-1.0); Monocytes % (A) 5 %; Neutrophils # (A) 4.1 k/uL (1.3-7.7); Neutrophils % (A) 66 %; Platelet Count 270 k/uL (150-450); RBC 5.61 m/uL (3.80-5.40); RDW 13.5 % (11.5-15.5); WBC 6.2 k/uL (3.8-10.6)
--- NOTE | 2018-09-15 10:15 | ED ---
SOB HPI - General Chief Complaint: Shortness of Breath Stated Complaint: SOB Time Seen by Provider: 09/15/18 09:33 Source: patient, EMS, RN notes reviewed Mode of arrival: EMS Limitations: no limitations - History of Present Illness Initial Comments: This is a 53-year-old female with a history of COPD who is still a smoker who presents with complaints of for 5 days of shortness of breath associated getting progressively worse. She's had chills she said cough with yellow phlegm and his abdomen responding to her home medications. She is still a smoker. She is found per paramedics have a pulse ox in the 80s upon arrival he did improve somewhat after oxygen was applied she did receive 2 breathing treatments in route and 125 a slight Medrol she states minimal improvement though some improvement thus far. No overt chest pain no other modifying factors MD Complaint: shortness of breath, cough - Related Data Home Medications Medication Instructions Recorded Confirmed Albuterol Sulfate [Ventolin HFA] 2 puff INHALATION RT-Q4H PRN 09/25/13 02/05/18 Albuterol Nebulized [Ventolin 2.5 mg INHALATION RT-Q6H PRN 10/12/14 02/05/18 Nebulized] QUEtiapine [SEROquel] 100 mg PO HS 12/31/15 02/05/18 ALPRAZolam [Xanax] 1 mg PO TID PRN 02/05/18 02/05/18 Sertraline [Zoloft] 150 mg PO DAILY 02/05/18 02/05/18 rOPINIRole HCL [Requip] 0.5 mg PO HS 02/05/18 02/05/18 Previous Rx's Medication Instructions Recorded HYDROcodone/APAP 10-325MG [[place] 1 tab PO TID PRN #20 tab 01/02/16 10-325] Albuterol Inhaler [Ventolin Hfa 1 - 2 puff INHALATION RT-Q6H PRN 02/07/18 Inhaler] #1 inhaler Budesonide-Formot 160-4.5 Mcg 2 puff INHALATION RT-BID #1 inhaler 02/07/18 [Symbicort 160-4.5 Mcg Inhaler] Ipratropium-Albuterol Nebulize 3 ml INHALATION RT-QID #90 02/07/18 [Duoneb 0.5 mg-3 mg/3 ml Soln] ampul.neb predniSONE See Taper PO DAILY #24 tab 02/07/18 Allergies Allergy/AdvReac Type Severity Reaction Status Date / Time No Known Allergies Allergy Verified 02/05/18 11:17 Review of Systems ROS Statement: Those systems with pertinent positive or pertinent negative responses have been documented in the HPI. ROS Other: All systems not noted in ROS Statement are negative. Past Medical History Past Medical History: COPD, Hearing Disorder / Deafness, Hypertension Additional Past Medical History / Comment(s): Other HX: Upper and lower BACK PAIN, EMPHYSEMA, trachial bronchitis, RLS, insomnia. History of Any Multi-Drug Resistant Organisms: None Reported Past Surgical History: Ear Surgery Additional Past Surgical History / Comment(s): Multiple bilateral ear tubes as child; has had L ear reconstruction; has been told she needs hearing Aides Past Anesthesia/Blood Transfusion Reactions: No Reported Reaction Additional Past Anesthesia/Blood Transfusion Reaction / Comment(s): Pt has no problems with anesthetics and has never recieved blood. Past Psychological History: ADD/ADHD, Bipolar, Depression, Panic Disorder Smoking Status: Current every day smoker Past Alcohol Use History: Occasional Past Drug Use History: None Reported - Past Family History Mother Family Medical History: Cancer Additional Family Medical History / Comment(s): Mother had "a few kinds of cancers" and from cancer at age 60 yrs. Father History Unknown: Yes Family Medical History: Unable to Obtain Additional Family Medical History / Comment(s): Pt does not know her father. General Exam - General Exam Comments Initial Comments: This is a well-developed well-nourished awake alert oriented 3 female with audible wheezing noted upon arrival she does appear to Limitations: no limitations General appearance: alert, anxious, in distress Head exam: Present: atraumatic, normocephalic, normal inspection Eye exam: Present: normal appearance, PERRL, EOMI. Absent: scleral icterus, conjunctival injection, periorbital swelling ENT exam: Present: mucous membranes dry Neck exam: Present: normal inspection, full ROM, other (No stridor JVD or bruits). Absent: tenderness, meningismus, lymphadenopathy Respiratory exam: Present: wheezes, accessory muscle use, decreased breath sounds. Absent: respiratory distress, rales, rhonchi, stridor Cardiovascular Exam: Present: regular rate, normal rhythm, normal heart sounds. Absent: systolic murmur, diastolic murmur, rubs, gallop, clicks GI/Abdominal exam: Present: soft, normal bowel sounds. Absent: distended, tenderness, guarding, rebound, rigid Extremities exam: Present: normal inspection, full ROM, normal capillary refill. Absent: tenderness, pedal edema, joint swelling, calf tenderness Back exam: Present: normal inspection Neurological exam: Present: alert, oriented X3, CN II-XII intact Psychiatric exam: Present: normal affect, normal mood Skin exam: Present: warm, dry, intact, normal color. Absent: rash Course Vital Signs 09/15/18 09/15/18 09:39 10:30 Temperature 98.6 F Pulse Rate 81 80 Respiratory 22 26 H Rate Blood Pressure 136/94 162/83 O2 Sat by Pulse 93 L 98 Oximetry - Consultations Consultation #1: Reevaluation patient reveals minimal improvement she still demonstrating diffuse wheezing with accessory muscle use. Medical Decision Making - Medical Decision Making Patient is getting minimal improvement thus far with the treatment rendered she will be requiring admission the case is discussed with Dr. Jane. Pulmonary medicine will be consulted. - Lab Data Result diagrams: 09/15/18 09:55 09/15/18 09:55 Lab Results 09/15/18 09/15/18 09/15/18 Range/Units 09:55 09:55 09:55 WBC 6.2 (3.8-10.6) k/uL RBC 5.61 H (3.80-5.40) m/uL Hgb 17.3 H (11.4-16.0) gm/dL Hct 53.1 H (34.0-46.0) % MCV 94.7 (80.0-100.0) fL MCH 30.8 (25.0-35.0) pg MCHC 32.5 (31.0-37.0) g/dL RDW 13.5 (11.5-15.5) % Plt Count 270 (150-450) k/uL Neutrophils % 66 % Lymphocytes % 21 % Monocytes % 5 % Eosinophils % 5 % Basophils % 0 % Neutrophils # 4.1 (1.3-7.7) k/uL Lymphocytes # 1.3 (1.0-4.8) k/uL Monocytes # 0.3 (0-1.0) k/uL Eosinophils # 0.3 (0-0.7) k/uL Basophils # 0.0 (0-0.2) k/uL PT 10.1 (9.0-12.0) sec INR 0.9 (<1.2) APTT 25.6 (22.0-30.0) sec Sodium 140 (137-145) mmol/L Potassium 5.0 (3.5-5.1) mmol/L Chloride 103 (98-107) mmol/L Carbon Dioxide 32 H (22-30) mmol/L Anion Gap 5 mmol/L BUN 8 (7-17) mg/dL Creatinine 0.55 (0.52-1.04) mg/dL Est GFR (CKD-EPI)AfAm >90 (>60 ml/min/1.73 sqM) Est GFR (CKD-EPI)NonAf >90 (>60 ml/min/1.73 sqM) Glucose 134 H (74-99) mg/dL Calcium 9.4 (8.4-10.2) mg/dL Magnesium 2.2 (1.6-2.3) mg/dL Total Bilirubin 0.4 (0.2-1.3) mg/dL AST 19 (14-36) U/L ALT 26 (9-52) U/L Alkaline Phosphatase 97 (38-126) U/L Troponin I (0.000-0.034) ng/mL NT-Pro-B Natriuret Pep pg/mL Total Protein 7.4 (6.3-8.2) g/dL Albumin 4.7 (3.5-5.0) g/dL 09/15/18 09/15/18 Range/Units 09:55 09:55 WBC (3.8-10.6) k/uL RBC (3.80-5.40) m/uL Hgb (11.4-16.0) gm/dL Hct (34.0-46.0) % MCV (80.0-100.0) fL MCH (25.0-35.0) pg MCHC (31.0-37.0) g/dL RDW (11.5-15.5) % Plt Count (150-450) k/uL Neutrophils % % Lymphocytes % % Monocytes % % Eosinophils % % Basophils % % Neutrophils # (1.3-7.7) k/uL Lymphocytes # (1.0-4.8) k/uL Monocytes # (0-1.0) k/uL Eosinophils # (0-0.7) k/uL Basophils # (0-0.2) k/uL PT (9.0-12.0) sec INR (<1.2) APTT (22.0-30.0) sec Sodium (137-145) mmol/L Potassium (3.5-5.1) mmol/L Chloride (98-107) mmol/L Carbon Dioxide (22-30) mmol/L Anion Gap mmol/L BUN (7-17) mg/dL Creatinine (0.52-1.04) mg/dL Est GFR (CKD-EPI)AfAm (>60 ml/min/1.73 sqM) Est GFR (CKD-EPI)NonAf (>60 ml/min/1.73 sqM) Glucose (74-99) mg/dL Calcium (8.4-10.2) mg/dL Magnesium (1.6-2.3) mg/dL Total Bilirubin (0.2-1.3) mg/dL AST (14-36) U/L ALT (9-52) U/L Alkaline Phosphatase (38-126) U/L Troponin I 0.027 (0.000-0.034) ng/mL NT-Pro-B Natriuret Pep 218 pg/mL Total Protein (6.3-8.2) g/dL Albumin (3.5-5.0) g/dL - EKG Data -: EKG Interpreted by Ok EKG shows normal: sinus rhythm (Sinus rhythm with sinus arrhythmia noted rate was 83. Interval 174 QRS 86 QT since QTC 46/477 artifact is present.) - Radiology Data Radiology results: report reviewed (I did review the imaging and report evidence of bronchitis no definite infiltrates consistent with COPD), image reviewed Critical Care Time Critical Care Time: Yes Critical Care Time: 34 minutes of critical care time which includes initial presentation with history physical labs x-rays multiple reevaluation patient responsive therapy review of old charting discussed with the admitting physician discussed with patient regarding findings admission orders and documentation of the above Disposition Clinical Impression: Acute exacerbation of chronic obstructive airways disease, Adult respiratory distress syndrome, Bronchitis Disposition: ADMITTED IP TO THIS [facility] Condition: Fair Referrals: Natasha Figueroa MD [Primary Care Provider] - 1-2 days
[2018-09-15 10:24] LABS: ALT 26 U/L (9-52); AST 19 U/L (14-36); African American GFR (CKD) >90 (>60 ml/min/1.73 sqM); Albumin 4.7 g/dL (3.5-5.0); Alkaline Phosphatase 97 U/L (38-126); Anion Gap 5 mmol/L; Blood Urea Nitrogen 8 mg/dL (7-17); Calcium 9.4 mg/dL (8.4-10.2); Carbon Dioxide 32 mmol/L (22-30); Chloride 103 mmol/L (98-107); Glucose 134 mg/dL (74-99); INR 0.9 (<1.2); Magnesium 2.2 mg/dL (1.6-2.3); Partial Thromboplastin Time 25.6 sec (22.0-30.0); Prothrombin Time 10.1 sec (9.0-12.0); Sodium 140 mmol/L (137-145); Total Bilirubin 0.4 mg/dL (0.2-1.3); Total Protein 7.4 g/dL (6.3-8.2)
[2018-09-15] MEDS ORDERED: IPRATROPIUM-ALBUTEROL 3 ML NEB INHALATION STA ×2 (10:47)
--- NOTE | 2018-09-15 10:54 | XR ---
EXAMINATION TYPE: XR chest 2V DATE OF EXAM: 09/15/2018 COMPARISON: Prior chest x-ray 02/05/2018 HISTORY: Difficulty breathing, cough TECHNIQUE: Frontal and lateral views of the chest are obtained. FINDINGS: Prominent lung volumes are again noted suggestive of underlying COPD. There is bronchial wa ll thickening. There is no focal air space opacity, pleural effusion, or pneumothorax seen. The card iac silhouette size is within normal limits. The osseous structures are intact. There are overlying cardiac leads. Patient is rotated. IMPRESSION: Correlate for bronchitis, reactive airways disease.
--- NOTE | 2018-09-15 11:12 | ED ---
Medical Decision Making - Lab Data Result diagrams: 09/15/18 09:55 09/15/18 09:55 Lab Results 09/15/18 09/15/18 09/15/18 Range/Units 09:55 09:55 09:55 WBC 6.2 (3.8-10.6) k/uL RBC 5.61 H (3.80-5.40) m/uL Hgb 17.3 H (11.4-16.0) gm/dL Hct 53.1 H (34.0-46.0) % MCV 94.7 (80.0-100.0) fL MCH 30.8 (25.0-35.0) pg MCHC 32.5 (31.0-37.0) g/dL RDW 13.5 (11.5-15.5) % Plt Count 270 (150-450) k/uL Neutrophils % 66 % Lymphocytes % 21 % Monocytes % 5 % Eosinophils % 5 % Basophils % 0 % Neutrophils # 4.1 (1.3-7.7) k/uL Lymphocytes # 1.3 (1.0-4.8) k/uL Monocytes # 0.3 (0-1.0) k/uL Eosinophils # 0.3 (0-0.7) k/uL Basophils # 0.0 (0-0.2) k/uL PT 10.1 (9.0-12.0) sec INR 0.9 (<1.2) APTT 25.6 (22.0-30.0) sec Sodium 140 (137-145) mmol/L Potassium 5.0 (3.5-5.1) mmol/L Chloride 103 (98-107) mmol/L Carbon Dioxide 32 H (22-30) mmol/L Anion Gap 5 mmol/L BUN 8 (7-17) mg/dL Creatinine 0.55 (0.52-1.04) mg/dL Est GFR (CKD-EPI)AfAm >90 (>60 ml/min/1.73 sqM) Est GFR (CKD-EPI)NonAf >90 (>60 ml/min/1.73 sqM) Glucose 134 H (74-99) mg/dL Calcium 9.4 (8.4-10.2) mg/dL Magnesium 2.2 (1.6-2.3) mg/dL Total Bilirubin 0.4 (0.2-1.3) mg/dL AST 19 (14-36) U/L ALT 26 (9-52) U/L Alkaline Phosphatase 97 (38-126) U/L Troponin I (0.000-0.034) ng/mL NT-Pro-B Natriuret Pep pg/mL Total Protein 7.4 (6.3-8.2) g/dL Albumin 4.7 (3.5-5.0) g/dL 09/15/18 09/15/18 Range/Units 09:55 09:55 WBC (3.8-10.6) k/uL RBC (3.80-5.40) m/uL Hgb (11.4-16.0) gm/dL Hct (34.0-46.0) % MCV (80.0-100.0) fL MCH (25.0-35.0) pg MCHC (31.0-37.0) g/dL RDW (11.5-15.5) % Plt Count (150-450) k/uL Neutrophils % % Lymphocytes % % Monocytes % % Eosinophils % % Basophils % % Neutrophils # (1.3-7.7) k/uL Lymphocytes # (1.0-4.8) k/uL Monocytes # (0-1.0) k/uL Eosinophils # (0-0.7) k/uL Basophils # (0-0.2) k/uL PT (9.0-12.0) sec INR (<1.2) APTT (22.0-30.0) sec Sodium (137-145) mmol/L Potassium (3.5-5.1) mmol/L Chloride (98-107) mmol/L Carbon Dioxide (22-30) mmol/L Anion Gap mmol/L BUN (7-17) mg/dL Creatinine (0.52-1.04) mg/dL Est GFR (CKD-EPI)AfAm (>60 ml/min/1.73 sqM) Est GFR (CKD-EPI)NonAf (>60 ml/min/1.73 sqM) Glucose (74-99) mg/dL Calcium (8.4-10.2) mg/dL Magnesium (1.6-2.3) mg/dL Total Bilirubin (0.2-1.3) mg/dL AST (14-36) U/L ALT (9-52) U/L Alkaline Phosphatase (38-126) U/L Troponin I 0.027 (0.000-0.034) ng/mL NT-Pro-B Natriuret Pep 218 pg/mL Total Protein (6.3-8.2) g/dL Albumin (3.5-5.0) g/dL Disposition Clinical Impression: Acute exacerbation of chronic obstructive airways disease, Adult respiratory distress syndrome, Bronchitis, Smoking Disposition: ADMITTED IP TO THIS HOSP Condition: Fair Referrals: Natasha Figueroa MD [Primary Care Provider] - 1-2 days Procedures - Smoking Cessation Time Spent Discussing Smoking Cessation w/Patient (Minutes): 3 Patient Acknowledges Need for Cessation: Yes
[2018-09-15] MEDS: methylPREDNISolone SOD SUCCI 125 MG/2 ML VIAL IV SCH ×2 (12:37→17:10)
[2018-09-15] MEDS: NICOTINE 14MG/24HR PATCH TRANSDERM SCH (12:38)
[2018-09-15 13:14] VITALS: BMI 31.1
[2018-09-15] MEDS ORDERED: KETOROLAC 30 MG/ML 1 ML VIAL IVP STA (13:34)
[2018-09-15] MEDS: guaiFENesin 600 MG TABLET.ER PO SCH ×2 (15:22→20:57)
--- NOTE | 2018-09-15 15:52 | P.CNPUL ---
History of Present Illness Consult date: 09/15/18 Reason for consult: COPD Chief complaint: Shortness of breath cough and wheezing History of present illness: This is a 53-year-old female, [id number] smoker, known history of COPD, presented to the ER with 5 days history of cough wheezing shortness of breath. Cough is described as productive with yellow phlegm. Patient also had some low- grade fever, chills, no chest pain, no hemoptysis, no nausea, no vomiting, no abdominal pain. Patient was evaluated in the ER, given bronchodilators, chest x-ray showed no evidence of pneumonia, but she was had the bronchial wall thickening suggestive of bronchitis. Patient was admitted, and this consult was initiated. The last time she smoked was 4 days ago, patient has no plans to quit smoking in the near future. Labs on admission including CBC and complete metabolic profile were normal. Review of Systems Constitutional: 12 pounds weight loss in one week low-grade fever and chills. HEENT: No sore throat, no earache, no diplopia, no dizziness. Pulmonary: As noted in HPI mostly cough wheezing shortness of breath. Cough is productive with yellow phlegm. Cardiac: Denies any syncope, palpitations, angina, or diaphoresis. GI: Denies any nausea, vomiting, abdominal pain, melena or hematemesis. Genitourinary: Denies any dysuria frequency or urgency. Psychiatric: History of bipolar disorder denies any symptoms of active depressio n. Neurologic: Denies any headache blurred vision dizziness or diplopia or lid lag. Hematologic: No clotting bleeding or bruising Skin: No rashes. [place] skeletal: Denies any arthralgia or myalgia. Denies any deformities. Past Medical History Past Medical History: Asthma, COPD, Hearing Disorder / Deafness, Hypertension, Pneumonia Additional Past Medical History / Comment(s): Tracheobronchitis, deaf L ear and [place] & [place] in R ear, chronic cervical/back pain, RLS, migraines, insomnia. History of Any Multi-Drug Resistant Organisms: None Reported Past Surgical History: Ear Surgery Additional Past Surgical History / Comment(s): Multiple bilateral ear tubes as c hild; has had L ear reconstruction, pain clinic procedures. Past Anesthesia/Blood Transfusion Reactions: No Reported Reaction Additional Past Anesthesia/Blood Transfusion Reaction / Comment(s): Pt has no problems with anesthetics and has never recieved blood. Smoking Status: Current every day smoker - Past Family History Mother Family Medical History: Cancer Additional Family Medical History / Comment(s): Mother had "a few kinds of cancers" and from cancer at age 60 yrs. Father History Unknown: Yes Family Medical History: Unable to Obtain Additional Family Medical History / Comment(s): Pt does not know her father. Medications and Allergies Home Medications Medication Instructions Recorded Confirmed Type Albuterol Nebulized [Ventolin 2.5 mg INHALATION RT-Q6H PRN 10/12/14 09/15/18 History Nebulized] QUEtiapine [SEROquel] 100 mg PO HS 12/31/15 09/15/18 History Sertraline [Zoloft] 150 mg PO DAILY 02/05/18 09/15/18 History rOPINIRole HCL [Requip] 0.5 mg PO BID@0900,1700 02/05/18 09/15/18 History Albuterol Inhaler [Ventolin Hfa 2 puff INHALATION RT-Q4H PRN 09/15/18 09/15/18 History Inhaler] Budesonide/Formoterol Fumarate 2 puff INHALATION RT-BID 09/15/18 09/15/18 Hist ory [Symbicort 160-4.5 Mcg Inhaler] Allergies Allergy/AdvReac Type Severity Reaction Status Date / Time No Known Allergies Allergy Verified 02/05/18 11:17 Physical Exam Vitals: Vital Signs Temp Pulse Pulse Resp BP BP Pulse Ox 09/15/18 15:00 97.4 F L 79 16 113/76 94 L 09/15/18 13:45 85 18 130/84 96 09/15/18 12:34 84 18 115/78 96 09/15/18 12:00 88 20 123/83 97 09/15/18 11:32 102 H 09/15/18 11:30 105 H 20 124/85 97 09/15/18 11:22 112 H 09/15/18 11:21 112 H 09/15/18 11:13 92 09/15/18 11:00 84 20 162/83 97 09/15/18 10:30 80 26 H 162/83 98 09/15/18 09:39 98.6 F 81 22 136/94 93 L Intake and Output 09/15/18 09/15/1809/15/19 06:59 14:59 22:59 Other: Weight 79.923 kg Physical Exam: Revealed a 53-year-old female in no distress. Head: Atraumatic, normocephalic. HEENT:[Neck is supple.] [No neck masses.] [No thyromegaly.] [No JVD.] PERRLA, E MARTHA, no icterus, Chest: [No topical chest expansion, no chest wall tenderness, diffuse wheezes bilaterally more so on forced expiratory maneuver. No use of accessory muscles. Cardiac Exam: [Normal S1 and S2, no S3 gallop, no murmur.] Abdomen: [Soft, nontender, no megaly, no rebound, no guarding, normal bowel sounds.] Extremities: [No clubbing, no edema, no cyanosis.] Neurological Exam: [No focal neurologic deficit.] Alert oriented 3. Psychiatric: Normal mood affect and mental status examination. Skin warm and dry, normal color, no rashes. Lymphatics: No lymphadenopathy. Musculoskeletal: No deformities normal range of motion, no joint tenderness or swelling. Results - Laboratory Findings CBC and BMP: 09/15/18 09:55 09/15/18 09:55 PT/INR, D-dimer PT 10.1 sec (9.0-12.0) 09/15/18 09:55 INR 0.9 (<1.2) 09/15/18 09:55 Abnormal lab findings: Abnormal Labs 09/15/18 09/15/18 09:55 09:55 RBC 5.61 H Hgb 17.3 H Hct 53.1 H Carbon Dioxide 32 H Glucose 134 H - Diagnostic Findings Chest x-ray: image reviewed (As noted in HPI.) Assessment and Plan Assessment: Impression: 1 acute exacerbation of COPD 2 acute purulent tracheobronchitis 3 tobacco dependence syndrome 4 history of ADHD 5 history of bipolar disorder 6 generalized anxiety disorder. Recommendation: Fully agree with the present treatment plan including oxygen, bronchodilators, antibiotics, steroids, nicotine patches, and resume her usual medications for generalized anxiety disorder and bipolar disorder. Patient was counseled regarding smoking cessation, will continue to follow. Possible discharge planning in the next 24-48 hours. Time with Patient: Greater than 30
[2018-09-15] MEDS: IPRATROPIUM-ALBUTEROL 3 ML NEB INHALATION SCH ×3 (16:16→23:48)
[2018-09-15] MEDS: ALPRAZolam 1 MG TAB PO PRN (17:10)
[2018-09-15] MEDS ORDERED: ACETAMINOPHEN TAB 325 MG TAB PO PRN (17:27)
[2018-09-15] MEDS ORDERED: NALOXONE 0.4 MG/ML 1 ML VIAL IV PRN (17:27)
--- NOTE | 2018-09-15 17:29 | P.HPIM ---
History of Present Illness H&P Date: 09/15/18 Chief Complaint: COPD exacerbation 53-year-old female with past medical history of bipolar disorder, anxiety and COPD presents the ED for shortness of breath cough. Patient reports a trigger being changes in weather and the rain. Patient reports smoking 1-2 packs of cigarettes daily since age 21, quit 4 days ago. She denies any alcohol or illicit drug use. Patient denies any headaches, nausea, vomiting, fever, palpitations, changes in urination or bowel habits. Patient reports chills but denies chest pain or palpitations. Patient also reports a decreased appetite. She denies any exertional shortness of breath or orthopnea. Patient denies any lower extremity swelling as well. Patient also reports an increased incidence of panic attacks. In the ED, CBC showed a hemoglobin of 17.3. CMP showed a bicarbonate of 32 and glucose of 134. Initial troponin was 0.027, EKG showing sinus rhythm with marked sinus arrhythmia. BNP was 218. Chest x-ray is consistent with COPD. Patient is admitted for COPD exacerbation, pulmonology on consult. Review of Systems Pertinent positives and negatives as discussed in HPI, a complete review of systems was performed and all other systems are negative. Past Medical History Past Medical History: Asthma, COPD, Hearing Disorder / Deafness, Hypertension, Pneumonia Additional Past Medical History / Comment(s): Tracheobronchitis, deaf L ear and [place] in R ear, chronic cervical/back pain, RLS, migraines, insomnia. History of Any Multi-Drug Resistant Organisms: None Reported Past Surgical History: Ear Surgery Additional Past Surgical History / Comment(s): Multiple bilateral ear tubes as child; has had L ear reconstruction, pain clinic procedures. Past Anesthesia/Blood Transfusion Reactions: No Reported Reaction Additional Past Anesthesia/Blood Transfusion Reaction / Comment(s): Pt has no problems with anesthetics and has never recieved blood. Smoking Status: Current every day smoker - Past Family History Mother Family Medical History: Cancer Additional Family Medical History / Comment(s): Mother had "a few kinds of cancers" and from cancer at age 60 yrs. Father History Unknown: Yes Family Medical History: Unable to Obtain Additional Family Medical History / Comment(s): Pt does not know her father. Medications and Allergies Home Medications Medication Instructions Recorded Confirmed Type Albuterol Nebulized [Ventolin 2.5 mg INHALATION RT-Q6H PRN 10/12/14 09/15/18 History Nebulized] QUEtiapine [SEROquel] 100 mg PO HS 12/31/15 09/15/18 History Sertraline [Zoloft] 150 mg PO DAILY 02/05/18 09/15/18 History rOPINIRole HCL [Requip] 0.5 mg PO BID@0900,1700 02/05/18 09/15/18 History Albuterol Inhaler [Ventolin Hfa 2 puff INHALATION RT-Q4H PRN 09/15/18 09/15/18 History Inhaler] Budesonide/Formoterol Fumarate 2 puff INHALATION RT-BID 09/15/18 09/15/18 History [Symbicort 160-4.5 Mcg Inhaler] Allergies Allergy/AdvReac Type Severity Reaction Status Date / Time No Known Allergies Allergy Verified 02/05/18 11:17 Physical Exam Vitals: Vital Signs Temp Pulse Pulse Resp BP BP Pulse Ox 09/15/18 16:27 106 H 09/15/18 16:18 103 H 09/15/18 15:00 97.4 F L 79 16 113/76 94 L 09/15/18 13:45 85 18 130/84 96 09/15/18 12:34 84 18 115/78 96 09/15/18 12:00 88 20 123/83 97 09/15/18 11:32 102 H 09/15/18 11:30 105 H 20 124/85 97 09/15/18 11:22 112 H 09/15/18 11:21 112 H 09/15/18 11:13 92 09/15/18 11:00 84 20 162/83 97 09/15/18 10:30 80 26 H 162/83 98 09/15/18 09:39 98.6 F 81 22 136/94 93 L Intake and Output 09/15/18 09/15/18 09/15/18 06:59 14:59 22:59 Other: Weight 79.923 kg General: [non toxic], [no distress], [appears at stated age] Derm: [warm], [dry] Head: [atraumatic], [normocephalic], [symmetric] Eyes: [EOMI], [no lid lag], [anicteric sclera] Mouth: [no lip lesion], [mucus membranes moist] Cardiovascular: [S1S2 reg], [tachycardia], [positive posterior tibial pulse bilateral], Lungs: [Decreased breath sounds with poor air entry bilaterally with expiratory wheezes and coarse breath sounds in the upper airway], [no rhonchi, no rales] , [no accessory muscle use] Abdominal: [soft], [ nontender to palpation], [no guarding], [no appreciable organomegaly] Ext: [no gross muscle atrophy], [no edema], [no contractures] Neuro: [ CN II-XI grossly intact], [no focal neuro deficits] Psych: [Alert], [oriented], [appropriate affect] Results CBC & Chem 7: 09/15/18 09:55 09/15/18 09:55 Labs: Abnormal Lab Results - Last 24 Hours (Table) 09/15/18 09/15/18 Range/Units 09:55 09:55 RBC 5.61 H (3.80-5.40) m/uL Hgb 17.3 H (11.4-16.0) gm/dL Hct 53.1 H (34.0-46.0) % Carbon Dioxide 32 H (22-30) mmol/L Glucose 134 H (74-99) mg/dL Thrombosis Risk Factor Assmnt - Choose All That Apply Any of the Below Risk Factors Present?: Yes Each Factor Represents 1 point: Abnormal pulmonary function (COPD), Age 41-60 years, Serious lung disease incl. pneumonia (< 1month) Other Risk Factors: No Other congenital or acquired thrombophilia - If yes, enter type in comment: No Thrombosis Risk Factor Assessment Total Risk Factor Score: 3 Thrombosis Risk Factor Assessment Level: Moderate Risk Assessment and Plan Assessment: Assessment and Plan 1. COPD exacerbation: BNP 218, low suspicion for HF. Likely triggered by smoking, changes in weather and tracheobronchitis. Patient is afebrile with no leukocytosis. CXR findings consistent with COPD. Plans: O2 per NC to maintain O2 sat > 92%. Continue DuoNeb QID scheduled, Symbicort 2 puff BID, SoluMedrol 60 mg IV Q6H. Start Azithromycin 500 mg PO QD x 3 days for acute bronchitis. Pain management with Tylenol and [employer] PRN. FU BCx, Pulmonology consult 2. Bipolar disorder and Anxiety: Stable. Continue Seroquel 100 mg PO QHS, Sertraline 150 mg PO QD and Xanax 1 mg PO TID PRN. 3. RLS: Stable. Continue Ropinirole 0.5 mg PO QHS. 4. DVT Prophylaxis: SCD boots only. Patient reiterates that she would like to remain full code. She names her daughter Brianda Ozuna decision-maker in the case that she can't make decisions for herself. DVT prophylaxis: [SCD boots] Discussed with: [Patient] Anticipated discharge: [2-3 days] Anticipated discharge place: [Home] A total of [45] minutes was spent on the care of this complex patient more than 50% of the time was spent in counseling and care coordination.
[2018-09-15] MEDS: SYMBICORT 160-4.5 MCG INHALER INHALATION SCH (19:51)
[2018-09-15] MEDS: HYDROcodone/APAP 5-325MG 1 EACH TAB PO PRN (20:57)
[2018-09-15] MEDS: QUEtiapine 100 MG TAB PO SCH (20:57)
[2018-09-16] MEDS: methylPREDNISolone SOD SUCCI 125 MG/2 ML VIAL IV SCH ×5 (00:43→23:33)
[2018-09-16] MEDS: IPRATROPIUM-ALBUTEROL 3 ML NEB INHALATION SCH ×6 (03:44→23:40)
[2018-09-16] MEDS: HYDROcodone/APAP 5-325MG 1 EACH TAB PO PRN ×3 (04:01→19:27)
[2018-09-16] MEDS: ALPRAZolam 1 MG TAB PO PRN ×3 (04:01→23:02)
[2018-09-16] MEDS: SYMBICORT 160-4.5 MCG INHALER INHALATION SCH ×2 (07:59→19:47)
[2018-09-16] MEDS: SERTRALINE 50 MG TAB PO SCH (08:57)
[2018-09-16] MEDS: AZITHROMYCIN 500 MG TAB PO SCH (08:57)
[2018-09-16] MEDS: guaiFENesin 600 MG TABLET.ER PO SCH ×2 (08:57→21:32)
[2018-09-16] MEDS: NICOTINE 14MG/24HR PATCH TRANSDERM SCH (08:57)
[2018-09-16 09:27] LABS: Basophils % (A) 0 %; Eosinophils # (A) 0.1 k/uL (0-0.7); Eosinophils % (A) 1 %; HCT 44.8 % (34.0-46.0); HGB 14.4 gm/dL (11.4-16.0); Lymphocytes # (A) 0.6 k/uL (1.0-4.8); Lymphocytes % (A) 8 %; MCH 30.5 pg (25.0-35.0); MCHC 32.1 g/dL (31.0-37.0); MCV 95.1 fL (80.0-100.0); Mean Platelet Volume 7.4; Monocytes # (A) 0.1 k/uL (0-1.0); Monocytes % (A) 1 %; Neutrophils % (A) 90 %; Platelet Count 245 k/uL (150-450); RBC 4.71 m/uL (3.80-5.40); RDW 13.4 % (11.5-15.5); WBC 7.9 k/uL (3.8-10.6)
[2018-09-16 09:38] LABS: African American GFR (CKD) >90 (>60 ml/min/1.73 sqM); Anion Gap 7 mmol/L; Blood Urea Nitrogen 15 mg/dL (7-17); Calcium 9.2 mg/dL (8.4-10.2); Carbon Dioxide 27 mmol/L (22-30); Chloride 105 mmol/L (98-107); Glucose 180 mg/dL (74-99); Potassium 4.7 mmol/L (3.5-5.1); Sodium 139 mmol/L (137-145)
--- NOTE | 2018-09-16 10:27 | P.PN ---
Subjective Progress Note Date: 09/16/18 Principal diagnosis: Acute exacerbation chronic obstructive pulmonary disease This is a 53-year-old female, [id number] smoker, known history of COPD, presented to the ER with 5 days history of cough wheezing shortness of breath. Cough is described as productive with yellow phlegm. Patient also had some low- grade fever, chills, no chest pain, no hemoptysis, no nausea, no vomiting, no abdominal pain. Patient was evaluated in the ER, given bronchodilators, chest x-ray showed no evidence of pneumonia, but she was had the bronchial wall thickening suggestive of bronchitis. Patient was admitted, and this consult was initiated. The last time she smoked was 4 days ago, patient has no plans to quit smoking in the near future. Labs on admission including CBC and complete metabolic profile were normal. The patient is seen today 09/16/2018 in follow-up on the regular medical floor. She is currently resting fairly comfortably in bed. She still quite dyspneic with minimal exertion. Tight nonproductive cough. Maintaining O2 saturations in the low 90s on 4 L/m per nasal cannula. Currently afebrile. Hemodynamically stable. White count 7.9. Hemoglobin 14.4. Creatinine 0.57. Maintained on DuoNeb inhalations, Symbicort, IV Solu-Medrol. Empiric antibiotics in the form of azithromycin. NicoDerm patch is in place. Objective - Vital Signs Vital signs: Vital Signs Temp 97.5 F L 09/16/18 05:25 Pulse 100 09/16/18 08:15 Resp 18 09/16/18 05:25 BP 100/67 09/16/18 05:25 Pulse Ox 93 L 09/16/18 05:25 Intake & Output 09/15/18 09/16/18 09/16/18 18:59 06:59 18:59 Intake Total 1200 Balance 1200 Weight 79.923 kg Intake: Oral 1200 Other: Voiding Method Toilet # Voids 2 - Exam GENERAL EXAM: Alert, comfortable in no apparent distress. On 4 L nasal cannula. HEAD: Normocephalic. EYES: Normal reaction of pupils, equal size. NOSE: Clear with pink turbinates. THROAT: No erythema or exudates. NECK: No masses, no JVD. CHEST: No chest wall deformity. LUNGS: Equal air entry with bilateral wheeze, diminished. CVS: S1 and S2 normal with no audible murmur, regular rhythm. ABDOMEN: No hepatosplenomegaly, normal bowel sounds, no guarding or rigidity. SPINE: No scoliosis or deformity SKIN: No rashes CENTRAL NERVOUS SYSTEM: No focal deficits, tone is normal in all 4 extremities. EXTREMITIES: There is no peripheral edema. No clubbing, no cyanosis. Peripheral pulses are intact. - Labs CBC & Chem 7: 09/16/18 09:02 09/16/18 09:02 Labs: Abnormal Lab Results - Last 24 Hours (Table) 09/15/18 09/15/18 09/16/18 Range/Units 09:55 09:55 09:02 RBC 5.61 H (3.80-5.40) m/uL Hgb 17.3 H (11.4-16.0) gm/dL Hct 53.1 H (34.0-46.0) % Lymphocytes # 0.6 L (1.0-4.8) k/uL Carbon Dioxide 32 H (22-30) mmol/L Glucose 134 H (74-99) mg/dL 09/16/18 Range/Units 09:02 RBC (3.80-5.40) m/uL Hgb (11.4-16.0) gm/dL Hct (34.0-46.0) % Lymphocytes # (1.0-4.8) k/uL Carbon Dioxide (22-30) mmol/L Glucose 180 H (74-99) mg/dL Assessment and Plan Assessment: Impression: #1 Acute exacerbation of chronic obstructive pulmonary disease. #2 Acute hypoxic respiratory failure secondary to above. #3 Chronic and ongoing tobacco dependence. #4 History of ADHD. #5 History of bipolar disorder. #6 History of general anxiety disorder. Plan: The patient was seen and evaluated by Dr. Brannon. Not quite back to her baseline. Continue with current treatment plan including DuoNeb inhalations, Symbicort, IV Solu-Medrol. Empiric antibiotics in the form of azithromycin. NicoDerm patch is in place. She is again educated regarding the importance of complete smoking cessation. We'll continue to follow make further recommendatio ns based on her clinical status. I, the cosigning physician, performed a history & physical examination of the patient. Lungs sounds with bilateral wheezing, diminished. Maintaining good O2 saturations in the 90s on 4 L/m per nasal cannula. I discussed the assessment and plan of care with my nurse practitioner, Catia Lentz. I attest to the above note as dictated by her.
--- NOTE | 2018-09-16 11:30 | P.PN ---
Subjective Progress Note Date: 09/16/18 Principal diagnosis: COPD exacerbation patient was seen and examined. No acute events overnight. Patient reports continued shortness of breath and wheezing. Continues complain a cough with yellow sputum. She denies any chest pain or palpitations. No nausea or vomiting. No fever or chills. Objective - Vital Signs Vital signs: Vital Signs Temp 97.5 F L 09/16/18 05:25 Pulse 92 09/16/18 11:25 Resp 18 09/16/18 05:25 BP 100/67 09/16/18 05:25 Pulse Ox 93 L 09/16/18 05:25 Intake & Output 09/15/18 09/16/18 09/16/18 18:59 06:59 18:59 Intake Total 1200 240 Balance 1200 240 Weight 79.923 kg Intake: Oral 1200 240 Other: Voiding Method Toilet # Voids 2 2 - Exam General: [non toxic], [no distress], [appears at stated age] Derm: [warm], [dry] Head: [atraumatic], [normocephalic], [symmetric] Eyes: [EOMI], [no lid lag], [anicteric sclera] Mouth: [no lip lesion], [mucus membranes moist] Cardiovascular: [S1S2 reg], [tachycardia], [positive posterior tibial pulse bilateral], Lungs: [Decreased breath sounds with poor air entry bilaterally with expiratory wheezes, improved from yesterday], [no rhonchi, no rales] , [no accessory muscle use] Abdominal: [soft], [ nontender to palpation], [no guarding], [no appreciable organomegaly] Ext: [no gross muscle atrophy], [no edema], [no contractures] Neuro: [no focal neuro deficits] Psych: [Alert], [oriented], [appropriate affect] - Labs CBC & Chem 7: 09/16/18 09:02 09/16/18 09:02 Labs: Abnormal Lab Results - Last 24 Hours (Table) 09/16/18 09/16/18 Range/Units 09:02 09:02 Lymphocytes # 0.6 L (1.0-4.8) k/uL Glucose 180 H (74-99) mg/dL Assessment and Plan Assessment: Assessment and Plan 1. COPD exacerbation: BNP 218, low suspicion for HF. Likely triggered by smoking, changes in weather and tracheobronchitis. Patient is afebrile with no leukocytosis. CXR findings consistent with COPD. Plans: O2 per NC to maintain O2 sat > 92%. Continue DuoNeb QID scheduled, Symbicort 2 puff BID, SoluMedrol 60 mg IV Q6H. Start Azithromycin 500 mg PO QD x 3 days for acute bronchitis. Add Mucinex. Pain management with Tylenol and [place] PRN. FU BCx, Pulmonology consult 2. Bipolar disorder and Anxiety: Stable. Continue Seroquel 100 mg PO QHS, Sertraline 150 mg PO QD and Xanax 1 mg PO TID PRN. 3. RLS: Stable. Continue Ropinirole 0.5 mg PO QHS. 4. DVT Prophylaxis: SCD boots only. Patient is still wheezing bilaterally with increased work of breathing. Continue to optimize COPD medications. Follow pulmonology consultation. Patient is pending clinical improvement. Likely DC in 2-3 days.
[2018-09-16] MEDS: QUEtiapine 100 MG TAB PO SCH (21:33)
[2018-09-17] MEDS: IPRATROPIUM-ALBUTEROL 3 ML NEB INHALATION SCH ×5 (03:50→20:13)
[2018-09-17] MEDS: methylPREDNISolone SOD SUCCI 125 MG/2 ML VIAL IV SCH ×4 (05:35→23:40)
[2018-09-17] MEDS: SYMBICORT 160-4.5 MCG INHALER INHALATION SCH ×2 (07:34→20:13)
[2018-09-17] MEDS: NICOTINE 14MG/24HR PATCH TRANSDERM SCH (08:32)
[2018-09-17] MEDS: SERTRALINE 50 MG TAB PO SCH (08:32)
[2018-09-17] MEDS: guaiFENesin 600 MG TABLET.ER PO SCH ×2 (08:32→20:13)
[2018-09-17] MEDS: AZITHROMYCIN 500 MG TAB PO SCH (08:32)
[2018-09-17] MEDS: ALPRAZolam 1 MG TAB PO PRN ×2 (08:36→16:36)
[2018-09-17] MEDS: HYDROcodone/APAP 5-325MG 1 EACH TAB PO PRN ×2 (08:37→14:01)
--- NOTE | 2018-09-17 12:14 | P.PN ---
Subjective Progress Note Date: 09/17/18 Principal diagnosis: Acute exacerbation of COPD This is a 53-year-old female, [id number] smoker, known history of COPD, presented to the ER with 5 days history of cough wheezing shortness of breath. Cough is described as productive with yellow phlegm. Patient also had some low- grade fever, chills, no chest pain, no hemoptysis, no nausea, no vomiting, no abdominal pain. Patient was evaluated in the ER, given bronchodilators, chest x-ray showed no evidence of pneumonia, but she was had the bronchial wall thickening suggestive of bronchitis. Patient was admitted, and this consult was initiated. The last time she smoked was 4 days ago, patient has no plans to quit smoking in the near future. Labs on admission including CBC and complete metabolic profile were normal. The patient is seen today 09/16/2018 in follow-up on the regular medical floor. She is currently resting fairly comfortably in bed. She still quite dyspneic with minimal exertion. Tight nonproductive cough. Maintaining O2 saturations in the low 90s on 4 L/m per nasal cannula. Currently afebrile. Hemodynamically stable. White count 7.9. Hemoglobin 14.4. Creatinine 0.57. Maintained on Du oNeb inhalations, Symbicort, IV Solu-Medrol. Empiric antibiotics in the form of azithromycin. NicoDerm patch is in place. Reevaluated today on 09/17/2018, remains on a regular medical floor, patient is feeling a bit better, but continues to cough and wheeze, cough is nonproductive, O2 saturation is improved, is 98% on 4 L. Patient has no fever, no chills. She feels generally weak. Labs are normal including CBC and basic metabolic profile. Objective - Vital Signs Vital signs: Vital Signs Temp 98.2 F 09/17/18 11:53 Pulse 84 09/17/18 11:53 Resp 17 09/17/18 11:53 BP 120/69 09/17/18 11:53 Pulse Ox 98 09/17/18 11:53 Intake & Output 09/16/18 09/17/18 09/17/18 18:59 06:59 18:59 Intake Total 1200 Balance 1200 Weight 79.923 kg Intake: Oral 1200 Other: Voiding Method Toilet Toilet Toilet # Voids 2 1 - Exam Physical Exam: Revealed a 53-year-old female in no distress. On 4 L nasal cannula. Head: Atraumatic, normocephalic. HEENT:[Neck is supple.] [No neck masses.] [No thyromegaly.] [No JVD.] PERRLA, EOMI, no icterus, Chest: wheezes bilaterally more so on forced expiratory maneuver. No use of accessory muscles. Cardiac Exam: [Normal S1 and S2, no S3 gallop, no murmur.] Abdomen: [Soft, nontender, no megaly, no rebound, no guarding, normal bowel sounds.] Extremities: [No clubbing, no edema, no cyanosis.] Neurological Exam: [No focal neurologic deficit.] Alert oriented 3. Psychiatric: Normal mood affect and mental status examination. Skin warm and dry, normal color, no rashes. Lymphatics: No lymphadenopathy. Musculoskeletal: No deformities normal range of motion, no joint tenderness or swelling. - Labs CBC & Chem 7: 09/16/18 09:02 09/16/18 09:02 Labs: Microbiology - Last 24 Hours (Table) 09/15/18 09:55 Blood Culture - Preliminary Blood No Growth after 48 hours Assessment and Plan Assessment: Impression: 1 acute exacerbation of COPD 2 acute purulent tracheobronchitis 3 tobacco dependence syndrome 4 history of ADHD 5 history of bipolar disorder 6 generalized anxiety disorder. Recommendation: Continue present course of treatment including bronchodilators, antibiotics, steroids, consider discharge planning in the next 24-48 hours. Patient is improving but improving slowly. Not quite ready for discharge planning today. We'll continue to follow. Time with Patient: Less than 30
--- NOTE | 2018-09-17 12:41 | P.PN ---
Subjective Progress Note Date: 09/17/18 Principal diagnosis: COPD exacerbation Patient was seen and examined. No acute events overnight. Patient continues to complain of shortness of breath and wheezing. Continues to complain of cough, but sputum now clear. She denies any chest or palpitations. No nausea or vomit ing. No fever or chills. States that she is homeless, trying to avoid living in a tent beyond this Wednesday. Objective - Vital Signs Vital signs: Vital Signs Temp 98.2 F 09/17/18 11:53 Pulse 84 09/17/18 11:53 Resp 17 09/17/18 11:53 BP 120/69 09/17/18 11:53 Pulse Ox 98 09/17/18 11:53 Intake & Output 09/16/18 09/17/18 09/17/18 18:59 06:59 18:59 Intake Total 1200 Balance 1200 Weight 79.923 kg Intake: Oral 1200 Other: Voiding Method Toilet Toilet Toilet # Voids 2 1 - Exam General: [non toxic], [no distress], [appears at stated age] Derm: [warm], [dry] Head: [atraumatic], [normocephalic], [symmetric] Eyes: [EOMI], [no lid lag], [anicteric sclera] Mouth: [no lip lesion], [mucus membranes moist] Cardiovascular: [S1S2 reg], [tachycardia], [positive posterior tibial pulse bilateral], Lungs: [Decreased breath sounds with poor air entry bilaterally with expiratory wheezes, similar to yesterday], [no rhonchi, no rales] , [no accessory muscle use] Abdominal: [soft], [ nontender to palpation], [no guarding], [no appreciable organomegaly] Ext: [no gross muscle atrophy], [no edema], [no contractures] Neuro: [no focal neuro deficits] Psych: [Alert], [oriented], [appropriate affect] - Labs CBC & Chem 7: 09/16/18 09:02 09/16/18 09:02 Labs: Microbiology - Last 24 Hours (Table) 09/15/18 09:55 Blood Culture - Preliminary Blood No Growth after 48 hours Assessment and Plan Assessment: Assessment and Plan 1. COPD exacerbation: BNP 218, low suspicion for HF. Likely triggered by smokin g, changes in weather and tracheobronchitis. Patient is afebrile with no leukocytosis. CXR findings consistent with COPD. Blood culture negative at 48 hours. Plans: O2 per NC to maintain O2 sat > 92%. Continue DuoNeb QID scheduled, Symbicort 2 puff BID, SoluMedrol 60 mg IV Q6H. Start Azithromycin 500 mg PO QD x 3 days for acute bronchitis. Add Mucinex. Pain management with Tylenol and [place] PRN. FU BCx, Pulmonology consult 2. Bipolar disorder and Anxiety: Stable. Continue Seroquel 100 mg PO QHS, Sertraline 150 mg PO QD and Xanax 1 mg PO TID PRN. 3. RLS: Stable. Continue Ropinirole 0.5 mg PO QHS. 4. DVT Prophylaxis: SCD boots only. Patient is still wheezing bilaterally with increased work of breathing. Continue to optimize COPD medications. Follow pulmonology consultation. Patient is pending clinical improvement. Likely DC in 1-2 days.
[2018-09-17] MEDS: QUEtiapine 100 MG TAB PO SCH (20:13)
[2018-09-18] MEDS: IPRATROPIUM-ALBUTEROL 3 ML NEB INHALATION SCH ×6 (00:58→20:07)
[2018-09-18] MEDS: methylPREDNISolone SOD SUCCI 125 MG/2 ML VIAL IV SCH ×3 (05:50→17:59)
[2018-09-18] MEDS: ALPRAZolam 1 MG TAB PO PRN ×2 (05:51→15:24)
[2018-09-18] MEDS: SYMBICORT 160-4.5 MCG INHALER INHALATION SCH ×2 (08:30→20:07)
[2018-09-18] MEDS: SERTRALINE 50 MG TAB PO SCH (08:46)
[2018-09-18] MEDS: NICOTINE 14MG/24HR PATCH TRANSDERM SCH (08:46)
[2018-09-18] MEDS: guaiFENesin 600 MG TABLET.ER PO SCH ×2 (08:46→20:19)
[2018-09-18] MEDS: AZITHROMYCIN 500 MG TAB PO SCH (08:46)
[2018-09-18] MEDS: HYDROcodone/APAP 5-325MG 1 EACH TAB PO PRN ×2 (08:52→15:24)
--- NOTE | 2018-09-18 13:06 | P.PN ---
Subjective Progress Note Date: 09/18/18 Principal diagnosis: Acute exacerbation of COPD This is a 53-year-old female, [id number] smoker, known history of COPD, presented to the ER with 5 days history of cough wheezing shortness of breath. Cough is described as productive with yellow phlegm. Patient also had some low- grade fever, chills, no chest pain, no hemoptysis, no nausea, no vomiting, no abdominal pain. Patient was evaluated in the ER, given bronchodilators, chest x-ray showed no evidence of pneumonia, but she was had the bronchial wall thickening suggestive of bronchitis. Patient was admitted, and this consult was initiated. The last time she smoked was 4 days ago, patient has no plans to quit smoking in the near future. Labs on admission including CBC and complete metabolic profile were normal. The patient is seen today 09/16/2018 in follow-up on the regular medical floor. She is currently resting fairly comfortably in bed. She still quite dyspneic with minimal exertion. Tight nonproductive cough. Maintaining O2 saturations in the low 90s on 4 L/m per nasal cannula. Currently afebrile. Hemodynamically stable. White count 7.9. Hemoglobin 14.4. Creatinine 0.57. Maintained on Du oNeb inhalations, Symbicort, IV Solu-Medrol. Empiric antibiotics in the form of azithromycin. NicoDerm patch is in place. Reevaluated today on 09/17/2018, remains on a regular medical floor, patient is feeling a bit better, but continues to cough and wheeze, cough is nonproductive, O2 saturation is improved, is 98% on 4 L. Patient has no fever, no chills. She feels generally weak. Labs are normal including CBC and basic metabolic profile. Reevaluated today on 09/18/2018, patient is feeling better, breathing easier, less cough and less wheezing less shortness of breath. On physical examination she sounded much better, hence I believe the patient will be cleared for discharge today. If discharge the patient is to go home on DuoNeb updrafts 4 times a day and when necessary, prednisone burst and taper over 2 weeks, starting at 30 mg daily, also on Symbicort, patient must stop smoking otherwise she will keep bouncing back to the hospital. Objective - Vital Signs Vital signs: Vital Signs Temp 98.3 F 09/18/18 11:54 Pulse 75 09/18/18 11:54 Resp 19 09/18/18 11:54 BP 119/75 09/18/18 11:54 Pulse Ox 96 09/18/18 11:54 Intake & Output 09/17/18 09/18/18 09/18/18 18:59 06:59 18:59 Other: Voiding Method Toilet Toilet Toilet # Voids 3 3 - Exam Physical Exam: Revealed a 53-year-old female in no distress. On 4 L nasal cannula.O2 sat is 96%. Head: Atraumatic, normocephalic. HEENT:[Neck is supple.] [No neck masses.] [No thyromegaly.] [No JVD.] PERRLA, EOMI, no icterus, Chest: diminished breath sounds at the bases, minimal wheezing on forced expiratory maneuver otherwise unremarkable.s. Cardiac Exam: [Normal S1 and S2, no S3 gallop, no murmur.] Abdomen: [Soft, nontender, no megaly, no rebound, no guarding, normal bowel sounds.] Extremities: [No clubbing, no edema, no cyanosis.] Neurological Exam: [No focal neurologic deficit.] Alert oriented 3. Psychiatric: Normal mood affect and mental status examination. Skin warm and dry, normal color, no rashes. Lymphatics: No lymphadenopathy. Musculoskeletal: No deformities normal range of motion, no joint tenderness or swelling. - Labs CBC & Chem 7: 09/16/18 09:02 09/16/18 09:02 Labs: Microbiology - Last 24 Hours (Table) 09/15/18 09:55 Blood Culture - Preliminary Blood No Growth after 72 hours Assessment and Plan Assessment: Impression: 1 acute exacerbation of COPD, significantly improved, hence we'll clear the patient for discharge planning today. 2 acute purulent tracheobronchitis 3 tobacco dependence syndrome 4 history of ADHD 5 history of bipolar disorder 6 generalized anxiety disorder. Recommendation: patient was cleared for discharge today, should be discharged home on DuoNeb updrafts 4 times a day and when necessary, Symbicort 160/4.5, 2 puffs twice a day, and on prednisone 30 mg tapered over 2 weeks. Patient must stop smoking, and if the patient qualifies for home O2 with a 6 minute walk, may not be a bad idea to evaluate for home O2. Patient should be seen on outpatient basis for follow-up. Time with Patient: Less than 30
--- NOTE | 2018-09-18 15:21 | P.PN ---
Subjective Progress Note Date: 09/18/18 Principal diagnosis: COPD exacerbation Patient was seen and examined. No acute events overnight. Patient reports slight improvement in her breathing with less wheezing. Patient complains of right-sided earache and sore throat. This began at 3 AM. She denies any chest pain or palpitations. No nausea or vomiting. No fever or chills. Objective - Vital Signs Vital signs: Vital Signs Temp 98.3 F 09/18/18 11:54 Pulse 75 09/18/18 11:54 Resp 19 09/18/18 11:54 BP 119/75 09/18/18 11:54 Pulse Ox 96 09/18/18 11:54 Intake & Output 09/17/18 09/18/18 09/18/18 18:59 06:59 18:59 Other: Voiding Method Toilet Toilet Toilet # Voids 3 3 - Exam General: [non toxic], [no distress], [appears at stated age] Derm: [warm], [dry] Head: [atraumatic], [normocephalic], [symmetric] Eyes: [EOMI], [no lid lag], [anicteric sclera] Mouth: [no lip lesion], [mucus membranes moist] Cardiovascular: [S1S2 reg], [no murmur], [positive posterior tibial pulse bilateral], Lungs: [Decreased breath sounds with mild end expiratory wheezing, improved today], [no rhonchi, no rales] , [no accessory muscle use] Abdominal: [soft], [ nontender to palpation], [no guarding], [no appreciable organomegaly] Ext: [no gross muscle atrophy], [no edema], [no contractures] Neuro: [no focal neuro deficits] Psych: [Alert], [oriented], [appropriate affect] - Labs CBC & Chem 7: 09/16/18 09:02 09/16/18 09:02 Labs: Microbiology - Last 24 Hours (Table) 09/15/18 09:55 Blood Culture - Preliminary Blood No Growth after 72 hours Assessment and Plan Assessment: Assessment and Plan 1. COPD exacerbation: BNP 218, low suspicion for HF. Likely triggered by smoking, changes in weather and tracheobronchitis. Patient is afebrile with no leukocytosis. CXR findings consistent with COPD. Blood culture negative at 72 hours. Plans: O2 per NC to maintain O2 sat > 92%. Continue DuoNeb QID scheduled, Symbicort 2 puff BID, SoluMedrol 60 mg IV Q6H. Start Azithromycin 500 mg PO QD x 3 days for acute bronchitis. Add Mucinex. Pain management with Tylenol and [place] PRN. FU BCx, Pulmonology consult. Follow home O2 test 2. Bipolar disorder and Anxiety: Stable. Continue Seroquel 100 mg PO QHS, Sertraline 150 mg PO QD and Xanax 1 mg PO TID PRN. 3. RLS: Stable. Continue Ropinirole 0.5 mg PO QHS. 4. DVT Prophylaxis: SCD boots only. Patient's breathing is considerably improved. Will order a 6 minute walk test. Possible DC tomorrow.
[2018-09-18] MEDS: QUEtiapine 100 MG TAB PO SCH (20:19)
[2018-09-18 22:01] VITALS: RESP 18
[2018-09-19] MEDS: IPRATROPIUM-ALBUTEROL 3 ML NEB INHALATION SCH ×5 (00:12→15:48)
[2018-09-19] MEDS: methylPREDNISolone SOD SUCCI 125 MG/2 ML VIAL IV SCH ×3 (00:37→11:58)
[2018-09-19] MEDS: HYDROcodone/APAP 5-325MG 1 EACH TAB PO PRN ×3 (04:17→13:57)
[2018-09-19] MEDS: ALPRAZolam 1 MG TAB PO PRN ×2 (04:17→11:31)
[2018-09-19 04:56] VITALS: TEMP 97.6
[2018-09-19] MEDS: guaiFENesin 600 MG TABLET.ER PO SCH (08:10)
[2018-09-19] MEDS: SERTRALINE 50 MG TAB PO SCH (08:10)
[2018-09-19] MEDS: NICOTINE 14MG/24HR PATCH TRANSDERM SCH (08:12)
--- NOTE | 2018-09-19 08:21 | P.DS ---
Providers Date of admission: 09/15/18 11:06 Expected date of discharge: 09/19/18 Attending physician: Carmen Jane DO Consults: 09/15/18 11:06 Consult Physician Routine Consulting Provider: John Brannon Consult Reason/Comments: COPD Exacerbation with bronchitis Do you want consulting provider notified?: Yes Primary care physician: [facility] Course: 53-year-old female with past medical history of bipolar disorder, anxiety and COPD presents the ED for shortness of breath cough. Patient reports a trigger being changes in weather and the rain. Patient reports smoking 1-2 packs of cigarettes daily since age 21, quit 4 days ago. She denies any alcohol or illicit drug use. Patient denies any headaches, nausea, vomiting, fever, palpitations, changes in urination or bowel habits. Patient reports chills but denies chest pain or palpitations. Patient also reports a decreased appetite. She denies any exertional shortness of breath or orthopnea. Patient denies any lower extremity swelling as well. Patient also reports an increased incidence of panic attacks. In the ED, CBC showed a hemoglobin of 17.3. CMP showed a bicarbonate of 32 and glucose of 134. Initial troponin was 0.027, EKG showing sinus rhythm with marked sinus arrhythmia. BNP was 218. Chest x-ray is consistent with COPD. Patient is admitted for COPD exacerbation, pulmonology on consult. With regard to her dyspnea, her BNP was 218 and there is a low suspicion for CHF. Her COPD exacerbation was likely triggered from smoking and changes in weather and tracheobronchitis. Patient was afebrile with no leukocytosis. Chest x-ray findings was consistent with COPD. Blood cultures are negative at 72 hours at the time of discharge. Patient was given DuoNeb scheduled, Symbico rt and started on Solu-Medrol IV. She was given azithromycin for tracheobronchitis for duration of 3 days. Mucinex was added to her medication regimen. Pulmonology was consulted and cleared the patient for discharge. Home O2 test was performed and patient failed the test. Otherwise, her home medications were resumed for bipolar disorder, anxiety, RLS. Patient was seen and examined. No acute events overnight. Patient reports improvement in her breathing. She continues to complain of some discomfort in her right-sided ear and sore throat. She denies any chest pain or palpitations. No nausea or vomiting. No fever or chills. General: [non toxic], [no distress], [appears at stated age] Derm: [warm], [dry] Head: [atraumatic], [normocephalic], [symmetric] Eyes: [EOMI], [no lid lag], [anicteric sclera] Mouth: [no lip lesion], [mucus membranes moist] Cardiovascular: [S1S2 reg], [no murmur], [positive posterior tibial pulse bilateral], Lungs: [Decreased breath sounds with mild end expiratory wheezing, improved], [no rhonchi, no rales] , [no accessory muscle use] Abdominal: [soft], [ nontender to palpation], [no guarding], [no appreciable organomegaly] Ext: [no gross muscle atrophy], [no edema], [no contractures] Neuro: [no focal neuro deficits] Psych: [Alert], [oriented], [appropriate affect] Assessment and Plan 1. COPD exacerbation: BNP 218, low suspicion for HF. Likely triggered by smoking, changes in weather and tracheobronchitis. Patient is afebrile with no leukocytosis. CXR findings consistent with COPD. Blood culture negative at 72 hours. 6 minute walk test failed. Plans: O2 per [place] to maintain O2 sat > 92%. Continue DuoNeb QID scheduled, Symbicort 2 puff BID, SoluMedrol 60 mg IV Q6H. Completed a 3 day course of azithromycin. Add Mucinex. Pain management with Tylenol and [place] PRN. FU BCx, Pulmonology consult. 2. Bipolar disorder and Anxiety: Stable. Continue Seroquel 100 mg PO QHS, Sertraline 150 mg PO QD and Xanax 1 mg PO TID PRN. 3. RLS: Stable. Continue Ropinirole 0.5 mg PO QHS. 4. DVT Prophylaxis: SCD boots only. Patient's breathing is considerably improved. Failed 6 minute walk test. We'll need to get home oxygen. Consult social work for discharge planning. Pertinent Studies: Chest x-ray Patient Condition at Discharge: Stable Plan - Discharge Summary Discharge Rx Participant: No New Discharge Prescriptions: New Ipratropium-Albuterol Nebulize [Duoneb 0.5 mg-3 mg/3 ml Soln] 3 ml INHALATION RT-Q4H #90 ampul.neb predniSONE See Taper PO DIRECTED #30 tab Budesonide-Formot 160-4.5 Mcg [Symbicort 160-4.5 Mcg Inhaler] 2 puff INHALATION RT-BID #1 inhaler Continue QUEtiapine [SEROquel] 100 mg PO HS Sertraline [Zoloft] 150 mg PO DAILY rOPINIRole HCL [Requip] 0.5 mg PO BID@0900,1700 Budesonide/Formoterol Fumarate [Symbicort 160-4.5 Mcg Inhaler] 2 puff INHALATION RT-BID Albuterol Inhaler [Ventolin Hfa Inhaler] 2 puff INHALATION RT-Q4H PRN PRN Reason: Shortness Of Breath Discontinued Albuterol Nebulized [Ventolin Nebulized] 2.5 mg INHALATION RT-Q6H PRN PRN Reason: Shortness Of Breath Discharge Medication List QUEtiapine [SEROquel] 100 mg PO HS 12/31/15 [History] Sertraline [Zoloft] 150 mg PO DAILY 02/05/18 [History] rOPINIRole HCL [Requip] 0.5 mg PO BID@0900,1700 02/05/18 [History] Albuterol Inhaler [Ventolin Hfa Inhaler] 2 puff INHALATION RT-Q4H PRN 09/15/18 [History] Budesonide/Formoterol Fumarate [Symbicort 160-4.5 Mcg Inhaler] 2 puff INHALATION RT-BID 09/15/18 [History] Budesonide-Formot 160-4.5 Mcg [Symbicort 160-4.5 Mcg Inhaler] 2 puff INHALATION RT-BID #1 inhaler 09/19/18 [Rx] Ipratropium-Albuterol Nebulize [Duoneb 0.5 mg-3 mg/3 ml Soln] 3 ml INHALATION RT-Q4H #90 ampul.neb 09/19/18 [Rx] predniSONE See Taper PO DIRECTED #30 tab 09/19/18 [Rx] Follow up Appointment(s)/Referral(s): Natasha Figueroa MD [Primary Care Provider] - 1-2 days John Brannon MD [STAFF PHYSICIAN] - 1 Week Activity/Diet/Wound Care/Special Instructions: Diet: Regular Follow-up PCP within 1-2 days of discharge. Follow-up pulmonology within 1 week of discharge. Please take all medications as advised. Discharge Disposition: HOME SELF-CARE
[2018-09-19] MEDS: SYMBICORT 160-4.5 MCG INHALER INHALATION SCH (08:48)
[2018-09-19 12:30] VITALS: BP 108/65
[2018-09-19 15:57] VITALS: PULSE 78
== END 2018-09-19 16:22 | disposition home or self-care (01) | DRG 190 ==
LOC: EC 09:33 → 3NMEDONC 11:06
PROVIDERS: ADMIT Internal Medicine; ATTEND Internal Medicine
DX: J44.1 Chronic obstructive pulmonary disease with (acute) exacerbation (principal); J96.21 Acute and chronic respiratory failure with hypoxia; F17.210 Nicotine dependence, cigarettes, uncomplicated; F31.9 Bipolar disorder, unspecified; F41.1 Generalized anxiety disorder; F90.9 Attention-deficit hyperactivity disorder, unspecified type; G25.81 Restless legs syndrome; I10 Essential (primary) hypertension; H91.93 Unspecified hearing loss, bilateral; G43.909 Migraine, unspecified, not intractable, without status migrainosus; G47.00 Insomnia, unspecified; J20.9 Acute bronchitis, unspecified; H92.01 Otalgia, right ear; Z59.0 Homelessness; Z79.51 Long term (current) use of inhaled steroids; Z79.899 Other long term (current) drug therapy; Z79.890 Hormone replacement therapy; Z87.01 Personal history of pneumonia (recurrent); Z80.9 Family history of malignant neoplasm, unspecified
CPT/HCPCS: 36415; 71046; 80048; 80053; 83735; 83880; 84484; 85025; 85610; 85730; 87040; 93005; 94640; 94760; 96365; 96366; 96375; 99291

== ENCOUNTER 2019-01-20 22:37 | Inpatient (IN) | payer OTHER ==
[2019-01-20] MEDS ORDERED: SODIUM CHLORIDE 0.9% 500 ML 500 ML IV STA (22:51)
[2019-01-20] MEDS ORDERED: SODIUM CHLORIDE 0.9% 1,000 ML IV STA ×2 (22:51)
[2019-01-20] MEDS ORDERED: MORPHINE SULFATE 2 MG/ML SYRINGE IVP STA (22:51)
[2019-01-20] MEDS ORDERED: methylPREDNISolone SOD SUCCI 125 MG/2 ML VIAL IV STA (22:51)
[2019-01-20] MEDS ORDERED: ALBUTEROL NEBULIZED 2.5 MG/3 ML INHALATION STA (22:51)
[2019-01-20] MEDS ORDERED: AZITHROMYCIN 500 MG in SODIUM CHLORIDE 0.9% 250 ML IVPB STA (22:51)
[2019-01-20] MEDS ORDERED: LORazepam 2 MG/ML INJ IV STA (22:51)
[2019-01-20] MEDS ORDERED: IPRATROPIUM 0.5 MG/2.5 ML NEBU INHALATION STA (22:51)
--- NOTE | 2019-01-20 22:53 | ED ---
SOB HPI - General Stated Complaint: SOB Time Seen by Provider: 01/20/19 22:44 Source: RN notes reviewed, old records reviewed Limitations: no limitations - History of Present Illness Initial Comments: This is a 51-year-old female the ER for evaluation. Presents a for evaluation of significant shortness of breath history of smoking and COPD with multiple admissions she is on home O2 up to 4 L. Patient states she's been unable smoker last 3 days secondary to her shortness of breath. Also states her out of her inhaler secondary to losing in storage. No fevers which is complaining of chest pain and is unable to catch her breath just sitting still. Otherwise no recent travel history. No known sick contacts. MD Complaint: shortness of breath, cough, pain with inspiration, anxiety -: days(s) (3) Severity: severe Severity scale (1-10): 8 Consistency: constant Improves With: nothing Worsens With: exertion, movement Known History Of: COPD, asthma Context: recent URI, medication noncompliance Associated Symptoms: pain with inspiration, cough, sputum production, palpitations, diaphoresis Treatments Prior to Arrival: none - Related Data Home Medications Medication Instructions Recorded Confirmed QUEtiapine [SEROquel] 100 mg PO HS 12/31/15 09/15/18 Sertraline [Zoloft] 150 mg PO DAILY 02/05/18 09/15/18 rOPINIRole HCL [Requip] 0.5 mg PO BID@0900,1700 02/05/18 09/15/18 Albuterol Inhaler [Ventolin Hfa 2 puff INHALATION RT-Q4H PRN 09/15/18 09/15/18 Inhaler] Budesonide/Formoterol Fumarate 2 puff INHALATION RT-BID 09/15/18 09/15/18 [Symbicort 160-4.5 Mcg Inhaler] Previous Rx's Medication Instructions Recorded Budesonide-Formot 160-4.5 Mcg 2 puff INHALATION RT-BID #1 inhaler 09/19/18 [Symbicort 160-4.5 Mcg Inhaler] Ipratropium-Albuterol Nebulize 3 ml INHALATION RT-Q4H #90 09/19/18 [Duoneb 0.5 mg-3 mg/3 ml Soln] ampul.neb predniSONE See Taper PO DIRECTED #30 tab 09/19/18 Allergies Allergy/AdvReac Type Severity Reaction Status Date / Time No Known Allergies Allergy Verified 02/05/18 11:17 Review of Systems ROS Statement: Those systems with pertinent positive or pertinent negative responses have been documented in the HPI. ROS Other: All systems not noted in ROS Statement are negative. Past Medical History Past Medical History: Asthma, COPD, Hearing Disorder / Deafness, Hypertension, Pneumonia Additional Past Medical History / Comment(s): Tracheobronchitis, deaf L ear and [place] in R ear, chronic cervical/back pain, RLS, migraines, insomnia. History of Any Multi-Drug Resistant Organisms: None Reported Past Surgical History: Ear Surgery Additional Past Surgical History / Comment(s): Multiple bilateral ear tubes as child; has had L ear reconstruction, pain clinic procedures. Past Anesthesia/Blood Transfusion Reactions: No Reported Reaction Additional Past Anesthesia/Blood Transfusion Reaction / Comment(s): Pt has no problems with anesthetics and has never recieved blood. Smoking Status: Current every day smoker - Past Family History Mother Family Medical History: Cancer Additional Family Medical History / Comment(s): Mother had "a few kinds of cancers" and from cancer at age 60 yrs. Father History Unknown: Yes Family Medical History: Unable to Obtain Additional Family Medical History / Comment(s): Pt does not know her father. General Exam General appearance: alert, anxious, in distress Head exam: Present: atraumatic, normocephalic, normal inspection Eye exam: Present: normal appearance, PERRL, EOMI. Absent: scleral icterus, conjunctival injection, periorbital swelling ENT exam: Present: normal exam, mucous membranes moist Neck exam: Present: normal inspection. Absent: tenderness, meningismus, lymphadenopathy Respiratory exam: Present: respiratory distress, wheezes, accessory muscle use, decreased breath sounds, prolonged expiratory. Absent: rales, rhonchi, stridor Cardiovascular Exam: Present: normal rhythm, tachycardia, normal heart sounds. Absent: systolic murmur, diastolic murmur, rubs, gallop, clicks GI/Abdominal exam: Present: soft, normal bowel sounds. Absent: distended, tenderness, guarding, rebound, rigid Extremities exam: Present: normal inspection, full ROM, normal capillary refill. Absent: tenderness, pedal edema, joint swelling, calf tenderness Back exam: Present: normal inspection Neurological exam: Present: alert, oriented X3, CN II-XII intact Psychiatric exam: Present: normal affect, normal mood Skin exam: Present: warm, dry, intact, normal color. Absent: rash Course Vital Signs 01/20/19 22:51 Temperature 97.8 F Pulse Rate 92 Respiratory 28 H Rate Blood Pressure 132/93 O2 Sat by Pulse 97 Oximetry - Reevaluation(s) Reevaluation #1: 01/20/19 22:53 Medical records reviewed Reevaluation #2: 01/20/19 23:13 Patient's heart is well-controlled currently - Consultations Consultation #1: Spoke with Dr. Mendoza who is okay for admission Medical Decision Making - Medical Decision Making 33 female the ER for evaluation positive H of fibrillation with RVR which is new onset, will admit for cardiology observation - EKG Data -: EKG Interpreted by Me (EKG shows sinus rhythm rate of 93, AR 136, QRS 86, QTc 467) - Radiology Data Radiology results: report reviewed (Chest x-rays negative for acute disease), image reviewed Critical Care Time Critical Care Time: Yes Total Critical Care Time: 31 Disposition Clinical Impression: Anxiety, Atrial fibrillation with RVR Disposition: ADMITTED IP TO THIS HOSP Condition: Serious Is patient prescribed a controlled substance at d/c from ED?: No Referrals: Natasha Figueroa MD [Primary Care Provider] - 1-2 days
[2019-01-20] MEDS ORDERED: HEPARIN SODIUM,PORCINE 5,000 UNIT/ML 1 ML VIAL IV ONE (23:07)
[2019-01-20] MEDS ORDERED: NITROGLYCERIN SL TABS 0.4 MG TAB SUBLINGUAL PRN (23:07)
[2019-01-20] MEDS ORDERED: ASPIRIN 81 MG PO STA (23:07)
[2019-01-20] MEDS ORDERED: HEPARIN SODIUM,PORCINE 5,000 UNIT/ML 1 ML VIAL IV PRN (23:07)
--- NOTE | 2019-01-20 23:14 | XR ---
EXAMINATION TYPE: XR chest 1V portable DATE OF EXAM: 01/20/2019 COMPARISON: 09/15/2018 HISTORY: Short of breath TECHNIQUE: Single frontal view of the chest is obtained. FINDINGS: There is no heart failure nor confluent pneumonic infiltrate. Costophrenic angles are gabby r. There are chest leads. Thoracic aorta is atheromatous. Heart size is normal. IMPRESSION: No active cardiopulmonary disease. No change.
[2019-01-20] MEDS ORDERED: HEPARIN SOD,PORK IN 0.45% NACL 25,000 UNIT in 0.45% NACL 1 250ML.BAG IV SCH (23:15)
[2019-01-20] MEDS ORDERED: IPRATROPIUM-ALBUTEROL 3 ML NEB INHALATION STA (23:16)
[2019-01-21 00:27] LABS: Basophils # (A) 0.1 k/uL (0-0.2); Basophils % (A) 1 %; Eosinophils # (A) 0.4 k/uL (0-0.7); Eosinophils % (A) 5 %; HCT 48.2 % (34.0-46.0); HGB 15.8 gm/dL (11.4-16.0); Lymphocytes # (A) 1.4 k/uL (1.0-4.8); Lymphocytes % (A) 19 %; MCH 31.5 pg (25.0-35.0); MCHC 32.8 g/dL (31.0-37.0); Mean Platelet Volume 6.4; Monocytes # (A) 0.3 k/uL (0-1.0); Monocytes % (A) 4 %; Neutrophils % (A) 69 %; Platelet Count 208 k/uL (150-450); RBC 5.03 m/uL (3.80-5.40); RDW 12.7 % (11.5-15.5); WBC 7.2 k/uL (3.8-10.6)
[2019-01-21] MEDS: SODIUM CHLORIDE 0.9% 1,000 ML IV SCH ×3 (00:29→21:05)
[2019-01-21 00:36] LABS: INR 0.9 (<1.2); Partial Thromboplastin Time 24.8 sec (22.0-30.0); Prothrombin Time 9.9 sec (9.0-12.0)
[2019-01-21 00:37] LABS: ALT 20 U/L (9-52); AST 19 U/L (14-36); African American GFR (CKD) >90 (>60 ml/min/1.73 sqM); Albumin 4.5 g/dL (3.5-5.0); Alkaline Phosphatase 78 U/L (38-126); Anion Gap 8 mmol/L; Blood Urea Nitrogen 8 mg/dL (7-17); Calcium 9.7 mg/dL (8.4-10.2); Carbon Dioxide 27 mmol/L (22-30); Chloride 105 mmol/L (98-107); Creatine Kinase 64 U/L (30-135); Glucose 117 mg/dL (74-99); Potassium 4.4 mmol/L (3.5-5.1); Sodium 140 mmol/L (137-145); Total Bilirubin 0.5 mg/dL (0.2-1.3); Total Protein 7.1 g/dL (6.3-8.2)
[2019-01-21] MEDS: methylPREDNISolone SOD SUCCI 125 MG/2 ML VIAL IV SCH ×3 (01:04→11:45)
[2019-01-21 07:04] LABS: Glucose,Whole Blood 146 mg/dL (75-99)
[2019-01-21] MEDS: ALBUTEROL NEBULIZED 2.5 MG/3 ML INHALATION SCH ×4 (09:00→20:53)
[2019-01-21] MEDS ORDERED: ASPIRIN 325 MG TAB PO SCH (09:00)
[2019-01-21] MEDS: ENOXAPARIN 40 MG/0.4 ML SYRINGE SQ SCH (09:11)
[2019-01-21] MEDS: NICOTINE 21MG/24HR PATCH TRANSDERM SCH (09:11)
[2019-01-21] MEDS: INSULIN ASPART (NovoLOG) 100 UNIT/ML VIAL SQ SCH ×4 (09:14→21:05)
[2019-01-21 11:54] LABS: Glucose,Whole Blood 117 mg/dL (75-99)
[2019-01-21] MEDS: IPRATROPIUM-ALBUTEROL 3 ML NEB INHALATION PRN (12:10)
[2019-01-21] MEDS: ALPRAZolam 1 MG TAB PO PRN ×2 (13:23→21:04)
[2019-01-21] MEDS: HYDROcodone/APAP 10-325MG 1 EACH TAB PO PRN ×2 (13:23→21:13)
--- NOTE | 2019-01-21 14:39 | P.CNPUL ---
History of Present Illness Consult date: 01/21/19 Requesting physician: Rajeev Arechiga Reason for consult: dyspnea, COPD Chief complaint: Shortness of breath, cough, congestion History of present illness: This is a very pleasant 53-year-old female patient who follows with Natasha Figueroa as her healthcare provider. He has a history of hypertension, restless leg syndrome, migraines, hearing impairment, ADHD, bipolar disorder, anxiety. She also has a history of chronic and ongoing tobacco dependence and chronic obstructive pulmonary disease. On home oxygen. She was last seen by Dr. Brannon in our office in May 2017. She was to be on Symbicort, albuterol, maintenance prednisone at 5 mg daily. For the past several days she has had increasing shortness of breath, cough and congestion. She states she had been out of for her inhalers. His x-ray showed no acute cardiopulmonary process. She is seen today in consultation on the regular medical floor. She is awake and alert in mild respiratory distress. Dyspneic on minimal exertion and conversation. Did require BiPAP support throughout the night but takes it off frequently. Se ttings are 10/5 and 35% FiO2. Currently on 4 L/m per nasal cannula. She's afebrile. Hemodynamically stable. She was initiated on DuoNeb inhalations, IV Solu-Medrol, Lovenox for DVT prophylaxis. Review of Systems REVIEW OF SYSTEMS: CONSTITUTIONAL: Denies any recent significant weight loss or weight gain. EYES: Denies change in vision. EARS, NOSE, MOUTH, THROAT: Denies headaches, denies sore throat. CARDIOVASCULAR: Denies chest pain, palpitations or syncopal episodes. RESPIRATORY: Positive for shortness of breath, cough, congestion or hemoptysis. GASTROINTESTINAL: Denies change in appetite, denies abdominal pain GENITOURINARY: Denies hematuria, denies infections. MUSKULOSKELETAL: Denies pain, denies swelling. INTEGUMENTARY: Denies rash, denies eczema. NEUROLOGICAL: Denies recent memory loss, no recent seizure activity. PSYCHIATRIC: Denies anxiety, denies depression. HEMATOLOGIC/LYMPHATIC: Denies anemia, denies enlarged lymph nodes. Past Medical History Past Medical History: Asthma, COPD, Hearing Disorder / Deafness, Hypertension, Pneumonia Additional Past Medical History / Comment(s): Tracheobronchitis, deaf L ear and [place] in R ear, chronic cervical/back pain, RLS, migraines, insomnia. History of Any Multi-Drug Resistant Organisms: None Reported Past Surgical History: Ear Surgery Additional Past Surgical History / Comment(s): Multiple bilateral ear tubes as child; has had L ear reconstruction, pain clinic procedures. Past Anesthesia/Blood Transfusion Reactions: No Reported Reaction Additional Past Anesthesia/Blood Transfusion Reaction / Comment(s): Pt has no problems with anesthetics and has never recieved blood. Past Psychological History: ADD/ADHD, Bipolar, Depression, Panic Disorder Additional Psychological History / Comment(s): She has a nebulizer. She have home oxygen, she uses prn, 3-4 liters. 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 Pt has a license but no vehicle, she uses her insurance company for rides. Smoking Status: Current every day smoker Past Alcohol Use History: Occasional Additional Past Alcohol Use History / Comment(s): Pt started smoking in 1986 and is a ppd smoker. Last smoked 4 days ago and is now considering quitting. Past Drug Use History: Marijuana Additional Drug Use History / Comment(s): Pt smokes one joint a day for pain c ontrol. - Past Family History Mother Family Medical History: Cancer Additional Family Medical History / Comment(s): Mother had "a few kinds of cancers" and from cancer at age 60 yrs. Father History Unknown: Yes Family Medical History: Unable to Obtain Additional Family Medical History / Comment(s): Pt does not know her father. Medications and Allergies Home Medications Medication Instructions Recorded Confirmed Type QUEtiapine [SEROquel] 100 mg PO HS 12/31/15 01/20/19 History Sertraline [Zoloft] 150 mg PO DAILY 02/05/18 01/20/19 History rOPINIRole HCL [Requip] 0.5 mg PO BID@0900,1700 02/05/18 01/20/19 History Albuterol Inhaler [Ventolin Hfa 2 puff INHALATION RT-Q4H PRN 09/15/18 01/20/19 History Inhaler] Budesonide-Formot 160-4.5 Mcg 2 puff INHALATION RT-BID #1 inhaler 09/19/18 01/20/19 Rx [Symbicort 160-4.5 Mcg Inhaler] ALPRAZolam [Xanax] 1 mg PO TID PRN 01/20/19 01/20/19 History Albuterol Nebulized (Conc) 1.25 mg INHALATION Q6H PRN 01/20/19 01/20/19 History [Ventolin Nebulized (Conc)] HYDROcodone/APAP 10-325MG [[place] 1 tab PO TID PRN 01/20/19 01/21/19 History 10-325] Ipratropium-Albuterol Nebulize 3 ml INHALATION RT-Q4H PRN 01/20/19 01/20/19 History [Duoneb 0.5 mg-3 mg/3 ml Soln] Allergies Allergy/AdvReac Type Severity Reaction Status Date / Time No Known Allergies Allergy Verified 01/20/19 23:28 Physical Exam Vitals: Vital Signs Temp Pulse Pulse Resp BP BP Pulse Ox 01/21/19 12:25 105 H 01/21/19 12:11 106 H 01/21/19 09:17 108 H 01/21/19 09:01 108 H 01/21/19 08:00 93 17 01/21/19 07:00 97.8 F 93 17 111/70 96 01/21/19 03:55 100 20 01/21/19 02:20 98.6 F 109 H 18 109/75 94 L 01/21/19 00:40 112 H 28 H 101/76 93 L 01/21/19 00:10 106 H 26 H 110/86 96 01/21/19 00:00 109 H 20 01/20/19 23:40 101 H 32 H 119/83 95 01/20/19 23:36 109 H 18 01/20/19 23:10 101 H 28 H 120/81 95 01/20/19 22:51 97.8 F 92 24 132/93 97 Intake and Output 01/20/19 01/21/19 01/21/19 22:59 06:59 14:59 Intake Total 300 Balance 300 Intake: Intake, IV Titration 300 Amount Sodium Chloride 0.9% 1, 300 000 ml @ 100 mls/hr IV . Q10H [facility] Rx#:[id number] Other: Weight 62.596 kg GENERAL EXAM: Alert, pleasant 53-year-old female patient, alternating BiPAP with nasal cannula, in mild respiratory distress. HEAD: Normocephalic. EYES: Normal reaction of pupils, equal size. NOSE: Clear with pink turbinates. THROAT: No erythema or exudates. NECK: No masses, no JVD. CHEST: No chest wall deformity. LUNGS: Equal air entry with bilateral wheezing, few scattered rhonchi, diminished. CVS: S1 and S2 normal with no audible murmur, regular rhythm. ABDOMEN: No hepatosplenomegaly, normal bowel sounds, no guarding or rigidity. SPINE: No scoliosis or deformity SKIN: No rashes CENTRAL NERVOUS SYSTEM: No focal deficits, tone is normal in all 4 extremities. EXTREMITIES: There is no peripheral edema. No clubbing, no cyanosis. Peripheral pulses are intact. Results - Laboratory Findings CBC and BMP: 01/21/19 00:18 01/21/19 00:18 PT/INR, D-dimer PT 9.9 sec (9.0-12.0) 01/21/19 00:18 INR 0.9 (<1.2) 01/21/19 00:18 Abnormal lab findings: Abnormal Labs 01/21/19 01/21/19 01/21/19 00:18 00:18 06:53 Hct 48.2 H Creatinine 0.46 L Glucose 117 H POC Glucose (mg/dL) 146 H 01/21/19 11:42 Hct Creatinine Glucose POC Glucose (mg/dL) 117 H - Diagnostic Findings Chest x-ray: image reviewed Assessment and Plan Assessment: Impression: #1 Acute exacerbation of severe oxygen dependent, steroid dependent chronic obstructive pulmonary disease. #2 Chronic and ongoing tobacco dependence. #3 Attention deficit hyperactivity disorder. #4 Bipolar disorder. #5 Anxiety disorder. Plan: The patient was seen and evaluated by Dr. Brannon. Chest x-ray and labs revi ewed. We'll continue with her DuoNeb inhalations, add Pulmicort and Perforomist inhalations, continue IV Solu-Medrol. Add Promethazine. She is again educated regarding the importance of complete smoking cessation. NicoDerm patch will be offered. Lovenox for DVT prophylaxis. We will continue to follow and make further recommendations based on her clinical status. I, the cosigning physician, performed a history & physical examination of the patient. Lungs sounds with bilateral end expiratory wheeze, few scattered rhonchi, diminished Maintaining good O2 saturations in the 90s on 4 L/m per nasal cannula alternating with BiPAP at 35% FiO2 I discussed the assessment and plan of care with my nurse practitioner, Catia Lentz. I attest to the above consultation as dictated by her. Time with Patient: Greater than 30
--- NOTE | 2019-01-21 14:42 | P.HPIM ---
History of Present Illness 51-year-old female with a nicotine abuse history COPD constant dependent 4 L at home quit smoking 3 days ago because of severe shortness of breath and patient came in with shortness of breath diaphoresis cough with whitish sputum pro duction. Patient ran out of Bright's and and patient apparently was hypoxic as well. It was decreased documented that patient has A. fib in ER physician note that I didn't see any EKG or telemetry strip that shows A. fib. Patient's chest x-ray did not show any pneumonic pneumonia patient doesn't have any fever doesn't have any signs or symptoms of sepsis at this time. Review of Systems REVIEW OF SYSTEMS: CONSTITUTIONAL: No fever, no malaise, no fatigue. HEENT: No recent visual problems or hearing problems. Denied any sore throat. CARDIOVASCULAR: No chest pain, orthopnea, PND, no palpitations, no syncope. PULMONARY: As mentioned in HPI GASTROINTESTINAL: No diarrhea, no nausea, no vomiting, no abdominal pain. NEUROLOGICAL: No headaches, no weakness, no numbness. HEMATOLOGICAL: Denies any bleeding or petechiae. GENITOURINARY: Denies any burning micturition, frequency, or urgency. MUSCULOSKELETAL/RHEUMATOLOGICAL: Denies any joint pain, swelling, or any muscle pain. ENDOCRINE: Denies any polyuria or polydipsia. The rest of the 14-point review of systems is negative. Past Medical History Past Medical History: Asthma, COPD, Hearing Disorder / Deafness, Hypertension, Pneumonia Additional Past Medical History / Comment(s): Tracheobronchitis, deaf L ear and [place] in R ear, chronic cervical/back pain, RLS, migraines, insomnia. History of Any Multi-Drug Resistant Organisms: None Reported Past Surgical History: Ear Surgery Additional Past Surgical History / Comment(s): Multiple bilateral ear tubes as child; has had L ear reconstruction, pain clinic procedures. Past Anesthesia/Blood Transfusion Reactions: No Reported Reaction Additional Past Anesthesia/Blood Transfusion Reaction / Comment(s): Pt has no problems with anesthetics and has never recieved blood. Past Psychological History: ADD/ADHD, Bipolar, Depression, Panic Disorder Additional Psychological History / Comment(s): She has a nebulizer. She have home oxygen, she uses prn, 3-4 liters. 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 Pt has a license but no vehicle, she uses her insurance company for rides. Smoking Status: Current every day smoker Past Alcohol Use History: Occasional Additional Past Alcohol Use History / Comment(s): Pt started smoking in 1986 and is a ppd smoker. Last smoked 4 days ago and is now considering quitting. Past Drug Use History: Marijuana Additional Drug Use History / Comment(s): Pt smokes one joint a day for pain control. - Past Family History Mother Family Medical History: Cancer Additional Family Medical History / Comment(s): Mother had "a few kinds of cancers" and from cancer at age 60 yrs. Father History Unknown: Yes Family Medical History: Unable to Obtain Additional Family Medical History / Comment(s): Pt does not know her father. Medications and Allergies Home Medications Medication Instructions Recorded Confirmed Type QUEtiapine [SEROquel] 100 mg PO HS 12/31/15 01/20/19 History Sertraline [Zoloft] 150 mg PO DAILY 02/05/18 01/20/19 History rOPINIRole HCL [Requip] 0.5 mg PO BID@0900,1700 02/05/18 01/20/19 History Albuterol Inhaler [Ventolin Hfa 2 puff INHALATION RT-Q4H PRN 09/15/18 01/20/19 History Inhaler] Budesonide-Formot 160-4.5 Mcg 2 puff INHALATION RT-BID #1 inhaler 09/19/18 01/20/19 Rx [Symbicort 160-4.5 Mcg Inhaler] ALPRAZolam [Xanax] 1 mg PO TID PRN 01/20/19 01/20/19 History Albuterol Nebulized (Conc) 1.25 mg INHALATION Q6H PRN 01/20/19 01/20/19 History [Ventolin Nebulized (Conc)] HYDROcodone/APAP 10-325MG [[place] 1 tab PO TID PRN 01/20/19 01/21/19 History 10-325] Ipratropium-Albuterol Nebulize 3 ml INHALATION RT-Q4H PRN 01/20/19 01/20/19 History [Duoneb 0.5 mg-3 mg/3 ml Soln] Allergies Allergy/AdvReac Type Severity Reaction Status Date / Time No Known Allergies Allergy Verified 01/20/19 23:28 Physical Exam Vitals: Vital Signs Temp Pulse Pulse Resp BP BP Pulse Ox 01/21/19 12:25 105 H 01/21/19 12:11 106 H 01/21/19 09:17 108 H 01/21/19 09:01 108 H 01/21/19 08:00 93 17 01/21/19 07:00 97.8 F 93 17 111/70 96 01/21/19 03:55 100 20 01/21/19 02:20 98.6 F 109 H 18 109/75 94 L 01/21/19 00:40 112 H 28 H 101/76 93 L 01/21/19 00:10 106 H 26 H 110/86 96 01/21/19 00:00 109 H 20 01/20/19 23:40 101 H 32 H 119/83 95 01/20/19 23:36 109 H 18 01/20/19 23:10 101 H 28 H 120/81 95 01/20/19 22:51 97.8 F 92 24 132/93 97 Intake and Output 01/20/19 01/21/19 01/21/19 22:59 06:59 14:59 Intake Total 300 Balance 300 Intake: Intake, IV Titration 300 Amount Sodium Chloride 0.9% 1, 300 000 ml @ 100 mls/hr IV . Q10H [facility] Rx#:[id number] Other: Weight 62.596 kg PHYSICAL EXAMINATION: GENERAL: The patient is alert and oriented x3, not in any acute distress. Well developed, well nourished. HEENT: Pupils are round and equally reacting to light. EOMI. No scleral icterus. No conjunctival pallor. Normocephalic, atraumatic. No pharyngeal erythema. No thyromegaly. CARDIOVASCULAR: S1 and S2 present. No murmurs, rubs, or gallops. PULMONARY: Decreased air entry into bilateral lung vela with significant expiratory wheezing ABDOMEN: Soft, nontender, nondistended, normoactive bowel sounds. No palpable organomegaly. MUSCULOSKELETAL: No joint swelling or deformity. EXTREMITIES: No cyanosis, clubbing, or pedal edema. NEUROLOGICAL: Gross neurological examination did not reveal any focal deficits. SKIN: No rashes. Results CBC & Chem 7: 01/21/19 00:18 01/21/19 00:18 Labs: Abnormal Lab Results - Last 24 Hours (Table) 01/21/19 01/21/1901/21/19 Range/Units 00:18 00:18 06:53 Hct 48.2 H (34.0-46.0) % Creatinine 0.46 L (0.52-1.04) mg/dL Glucose 117 H (74-99) mg/dL POC Glucose (mg/dL) 146 H (75-99) mg/dL 01/21/19 Range/Units 11:42 Hct (34.0-46.0) % Creatinine (0.52-1.04) mg/dL Glucose (74-99) mg/dL POC Glucose (mg/dL) 117 H (75-99) mg/dL Thrombosis Risk Factor Assmnt - Choose All That Apply Each Factor Represents 1 point: Abnormal pulmonary function (COPD), Age 41-60 years Other Risk Factors: No Other congenital or acquired thrombophilia - If yes, enter type in comment: No Thrombosis Risk Factor Assessment Total Risk Factor Score: 2 Thrombosis Risk Factor Assessment Level: Low Risk Assessment and Plan Plan: -Acute on chronic hypercapnic respiratory failure secondary to COPD exacerbation nicotine cessation counseling was provided, patient will be can you on systemic steroids inhalational treatments along with azithromycin. -Anxiety disorder and depression: Counseling was provided regarding benzodiazepine overuse and I advised her to cut the benzodiazepine which patient is agreeable with continue sertraline -Hypertension -Continued nicotine use: Counseling was provided DVT prophylaxis with enoxaparin
[2019-01-21] MEDS: PROMETHAZINE 25 MG TAB PO PRN (15:36)
[2019-01-21 16:58] LABS: Glucose,Whole Blood 132 mg/dL (75-99)
[2019-01-21] MEDS: methylPREDNISolone SOD SUCCI 40 MG/ML 1 ML VIAL IV SCH (17:14)
[2019-01-21] MEDS ORDERED: SYMBICORT 160-4.5 MCG INHALER INHALATION SCH (20:00)
[2019-01-21 20:46] LABS: Glucose,Whole Blood 184 mg/dL (75-99)
[2019-01-21] MEDS: BUDESONIDE 1 MG/2 ML NEBU INHALATION SCH (20:53)
[2019-01-21] MEDS: FORMOTEROL FUMARATE 20 MCG/2 ML NEBU INHALATION SCH (20:53)
[2019-01-21] MEDS: QUEtiapine 100 MG TAB PO SCH (21:04)
[2019-01-22] MEDS: methylPREDNISolone SOD SUCCI 40 MG/ML 1 ML VIAL IV SCH ×3 (00:09→17:01)
[2019-01-22] MEDS: PROMETHAZINE 25 MG TAB PO PRN ×2 (00:11→17:05)
[2019-01-22] MEDS: SODIUM CHLORIDE 0.9% 1,000 ML IV SCH (05:11)
[2019-01-22 07:19] LABS: Glucose,Whole Blood 148 mg/dL (75-99)
[2019-01-22] MEDS: ALBUTEROL NEBULIZED 2.5 MG/3 ML INHALATION SCH ×4 (07:20→20:12)
[2019-01-22] MEDS: BUDESONIDE 1 MG/2 ML NEBU INHALATION SCH ×2 (07:21→20:12)
[2019-01-22] MEDS: FORMOTEROL FUMARATE 20 MCG/2 ML NEBU INHALATION SCH ×2 (07:21→20:12)
[2019-01-22] MEDS: NICOTINE 21MG/24HR PATCH TRANSDERM SCH (08:25)
[2019-01-22] MEDS: INSULIN ASPART (NovoLOG) 100 UNIT/ML VIAL SQ SCH ×4 (08:26→21:17)
[2019-01-22] MEDS: ENOXAPARIN 40 MG/0.4 ML SYRINGE SQ SCH (08:26)
[2019-01-22] MEDS: SERTRALINE 50 MG TAB PO SCH (08:26)
[2019-01-22] MEDS: ALPRAZolam 1 MG TAB PO PRN ×2 (08:27→17:05)
[2019-01-22] MEDS: HYDROcodone/APAP 10-325MG 1 EACH TAB PO PRN ×2 (08:27→17:05)
[2019-01-22 11:48] LABS: Glucose,Whole Blood 110 mg/dL (75-99)
--- NOTE | 2019-01-22 13:00 | P.PN ---
Subjective Progress Note Date: 01/22/19 Principal diagnosis: Acute exacerbation of COPD This is a very pleasant 53-year-old female patient who follows with Natasha Figueroa as her healthcare provider. He has a history of hypertension, restless leg syndrome, migraines, hearing impairment, ADHD, bipolar disorder, anxiety. She also has a history of chronic and ongoing tobacco dependence and chronic obstructive pulmonary disease. On home oxygen. She was last seen by Dr. Brannon in our office in May 2017. She was to be on Symbicort, albuterol, maintenance prednisone at 5 mg daily. For the past several days she has had increasing shortness of breath, cough and congestion. She states she had been out of for her inhalers. His x-ray showed no acute cardiopulmonary process. She is seen today in consultation on the regular medical floor. She is awake and alert in mild respiratory distress. Dyspneic on minimal exertion and conversation. Did require BiPAP support throughout the night but takes it off frequently. Settings are 10/5 and 35% FiO2. Currently on 4 L/m per nasal cannula. She's afebrile. Hemodynamically stable. She was initiated on DuoNeb inhalations, IV Solu-Medrol, Lovenox for DVT prophylaxis. Reevaluated today on 01/22/2019, patient continues to cough and wheeze. Continues to have shortness of breath. Maximized on her bronchodilators, she is on oxygen, antibiotics, minimal improvement if any. Hence she is not quite ready for any discharge planning today. Objective - Vital Signs Vital signs: Vital Signs Temp 97.6 F 01/22/19 07:00 Pulse 76 01/22/19 11:03 Resp 16 01/22/19 08:00 BP 110/71 01/22/19 07:00 Pulse Ox 98 01/22/19 07:00 Intake & Output 01/21/19 01/22/19 01/22/19 18:59 06:59 18:59 Intake Total 700 10 296 Balance 700 10 296 Intake: Intake, IV Titration 700 Amount Sodium Chloride 0.9% 1, 700 000 ml @ 100 mls/hr IV . Q10H [facility] Rx#:[id number] Oral 10 296 Other: # Voids 2 1 - Exam GENERAL EXAM: Alert, pleasant 53-year-old female patient, alternating BiPAP with nasal cannula, in mild respiratory distress. HEENT: PERRLA, EOMI, neck, dry mucous membranes. Throat is clear. CHEST: No chest wall deformity. LUNGS: Equal air entry with bilateral wheezing, few scattered rhonchi, diminished. CVS: S1 and S2 normal with no audible murmur, regular rhythm. ABDOMEN: No hepatosplenomegaly, normal bowel sounds, no guarding or rigidity. SPINE: No scoliosis or deformity SKIN: No rashes CENTRAL NERVOUS SYSTEM: Alert oriented 3 no gross focal deficit. EXTREMITIES: No clubbing edema or cyanosis. Psychiatric: Normal mood affect and normal mental status examination. - Labs CBC & Chem 7: 01/21/19 00:18 01/21/19 00:18 Labs: Abnormal Lab Results - Last 24 Hours (Table) 01/21/19 01/21/19 01/22/19 Range/Units 16:41 20:33 07:08 POC Glucose (mg/dL) 132 H 184 H 148 H (75-99) mg/dL 01/22/19 Range/Units 11:37 POC Glucose (mg/dL) 110 H (75-99) mg/dL Microbiology - Last 24 Hours (Table) 01/21/19 00:18 Blood Culture - Preliminary Blood No Growth after 24 hours Assessment and Plan Plan: #1 Acute exacerbation of severe oxygen dependent, steroid dependent chronic obstructive pulmonary disease. #2 Chronic and ongoing tobacco dependence. #3 Attention deficit hyperactivity disorder. #4 Bipolar disorder. #5 Anxiety disorder. Recommendation: Continue present course of treatment including maximal therapy with bronchodilators, oxygen, Solu-Medrol, given promethazine yesterday for cough, cultures regarding smoking cessation, continue GI and DVT prophylaxis. We'll continue to follow. Not ready for any discharge planning at this point. Long-term prognosis is definitely guarded. Time with Patient: Less than 30
--- NOTE | 2019-01-22 13:08 | P.PN ---
Subjective patient with advanced COPD is admitted for presumed exacerbation still wheezing quite a bit. We'll continue with inhaled steroids systemic steroids and inhalational treatments. Patient is still short of breath but doesn't keep the oxygen on. Constitutional: Denied any fatigue denied any fever. Cardio vascular: denied any chest pain, palpitations Gastrointestinal denied any nausea vomiting Pulmonary: mentioned in HPI Neurologic denied any new focal deficits All inpatient medications were reviewed and appropriate changes in these medications as dictated in the interval history and assessment and plan. Objective - Vital Signs Vital signs: Vital Signs Temp 97.6 F 01/22/19 07:00 Pulse 76 01/22/19 11:03 Resp 16 01/22/19 08:00 BP 110/71 01/22/19 07:00 Pulse Ox 98 01/22/19 07:00 Intake & Output 01/21/19 01/22/19 01/22/19 18:59 06:59 18:59 Intake Total 700 10 296 Balance 700 10 296 Intake: Intake, IV Titration 700 Amount Sodium Chloride 0.9% 1, 700 000 ml @ 100 mls/hr IV . Q10H [facility] Rx#:[id number] Oral 10 296 Other: # Voids 2 1 - Exam PHYSICAL EXAMINATION: GENERAL: The patient is alert and oriented x3, not in any acute distress. Well developed, well nourished. HEENT: Pupils are round and equally reacting to light. EOMI. No scleral icterus. No conjunctival pallor. Normocephalic, atraumatic. No pharyngeal erythema. No thyromegaly. CARDIOVASCULAR: S1 and S2 present. No murmurs, rubs, or gallops. PULMONARY: Decreased air entry into bilateral lung vela with significant expiratory wheezing ABDOMEN: Soft, nontender, nondistended, normoactive bowel sounds. No palpable organomegaly. MUSCULOSKELETAL: No joint swelling or deformity. EXTREMITIES: No cyanosis, clubbing, or pedal edema. NEUROLOGICAL: Gross neurological examination did not reveal any focal deficits. SKIN: No rashes. - Labs CBC & Chem 7: 01/21/19 00:18 01/21/19 00:18 Labs: Abnormal Lab Results - Last 24 Hours (Table) 01/21/19 01/21/19 01/22/19 Range/Units 16:41 20:33 07:08 POC Glucose (mg/dL) 132 H 184 H 148 H (75-99) mg/dL 01/22/19 Range/Units 11:37 POC Glucose (mg/dL) 110 H (75-99) mg/dL Microbiology - Last 24 Hours (Table) 01/21/19 00:18 Blood Culture - Preliminary Blood No Growth after 24 hours Assessment and Plan Plan: -Acute on chronic hypercapnic respiratory failure secondary to COPD exacerbation nicotine cessation counseling was provided, patient will be can you on systemic steroids inhalational treatments along with azithromycin.there is very minimal of no improvement competitors stress still wheezing quite a bit -Anxiety disorder and depression: continue with home medications advised to wean off benzodiazepines as outpatient -Hypertension -Continued nicotine use: Counseling was provided DVT prophylaxis with enoxaparin
[2019-01-22] MEDS: IPRATROPIUM-ALBUTEROL 3 ML NEB INHALATION PRN (15:54)
[2019-01-22 16:44] LABS: Glucose,Whole Blood 98 mg/dL (75-99)
[2019-01-22 20:23] LABS: Glucose,Whole Blood 168 mg/dL (75-99)
[2019-01-22] MEDS: QUEtiapine 100 MG TAB PO SCH (21:15)
[2019-01-23] MEDS: HYDROcodone/APAP 10-325MG 1 EACH TAB PO PRN ×4 (00:17→22:35)
[2019-01-23] MEDS: ALPRAZolam 1 MG TAB PO PRN ×4 (00:17→22:35)
[2019-01-23] MEDS: methylPREDNISolone SOD SUCCI 40 MG/ML 1 ML VIAL IV SCH ×4 (00:19→23:17)
[2019-01-23] MEDS: ALBUTEROL NEBULIZED 2.5 MG/3 ML INHALATION SCH ×4 (05:59→20:32)
[2019-01-23] MEDS: BUDESONIDE 1 MG/2 ML NEBU INHALATION SCH ×2 (05:59→20:32)
[2019-01-23 07:13] LABS: Glucose,Whole Blood 152 mg/dL (75-99)
[2019-01-23] MEDS: INSULIN ASPART (NovoLOG) 100 UNIT/ML VIAL SQ SCH ×4 (07:43→20:49)
[2019-01-23] MEDS: FORMOTEROL FUMARATE 20 MCG/2 ML NEBU INHALATION SCH ×2 (08:05→20:32)
[2019-01-23] MEDS: SERTRALINE 50 MG TAB PO SCH (08:58)
[2019-01-23] MEDS: NICOTINE 21MG/24HR PATCH TRANSDERM SCH (08:58)
[2019-01-23] MEDS: ENOXAPARIN 40 MG/0.4 ML SYRINGE SQ SCH (09:07)
[2019-01-23 12:10] LABS: Glucose,Whole Blood 102 mg/dL (75-99)
--- NOTE | 2019-01-23 12:50 | P.PN ---
Subjective Progress Note Date: 01/23/19 Principal diagnosis: Acute exacerbation of COPD This is a very pleasant 53-year-old female patient who follows with Natasha Figueroa as her healthcare provider. He has a history of hypertension, restless leg syndrome, migraines, hearing impairment, ADHD, bipolar disorder, anxiety. She also has a history of chronic and ongoing tobacco dependence and chronic obstructive pulmonary disease. On home oxygen. She was last seen by Dr. Brannon in our office in May 2017. She was to be on Symbicort, albuterol, maintenance prednisone at 5 mg daily. For the past several days she has had increasing shortness of breath, cough and congestion. She states she had been out of for h er inhalers. His x-ray showed no acute cardiopulmonary process. She is seen today in consultation on the regular medical floor. She is awake and alert in mild respiratory distress. Dyspneic on minimal exertion and conversation. Did require BiPAP support throughout the night but takes it off frequently. Settings are 10/5 and 35% FiO2. Currently on 4 L/m per nasal cannula. She's afebrile. Hemodynamically stable. She was initiated on DuoNeb inhalations, IV Solu-Medrol, Lovenox for DVT prophylaxis. Reevaluated today on 01/22/2019, patient continues to cough and wheeze. Continues to have shortness of breath. Maximized on her bronchodilators, she is on oxygen, antibiotics, minimal improvement if any. Hence she is not quite ready for any discharge planning today. On 01/23/2019 patient seen in follow-up on medical surgical floor. She is awake and alert, in no acute distress, still moderately dyspneic, and wheezy, she remains on 3-4 L of oxygen, the pulse ox of 94%, she is off the BiPAP support, she is afebrile, hemodynamically stable, she states there is some minimal improvement since she came in, she still complains of chest tightness, wheezing and coughing, she is been on a smoker for 34 years, of one pack of cigarettes or more on a daily basis, patient is on recommendation of IV steroids, nebulized bronchodilators, Pulmicort, Perforomist, and DuoNeb, she is on nicotine patch. No new labs no new chest x-rays, her initial chest x-ray on 01/20/2019 showed no active cardiopulmonary disease, patient is being treated for acute COPD exacerbation. Initial chest x-ray showed no acute pulmonary disease Objective - Vital Signs Vital signs: Vital Signs Temp 98.2 F 01/23/19 07:00 Pulse 92 01/23/19 11:35 Resp 16 01/23/19 07:00 BP 127/82 01/23/19 07:00 Pulse Ox 94 L 01/23/19 07:00 Intake & Output 01/22/19 01/23/19 01/23/19 18:59 06:59 18:59 Intake Total 988 Balance 988 Intake: Intake, IV Titration 100 Amount Sodium Chloride 0.9% 1, 100 000 ml @ 100 mls/hr IV . Q10H [facility] Rx#:[id number] Oral 888 Other: Voiding Method Toilet # Voids 2 - Exam GENERAL EXAM: Alert, pleasant, 53-year-old white female, on 4 L of oxygen with a pulse ox of 94%, moderately short of breath with conversation comfortable in no apparent distress. HEAD: Normocephalic/atraumatic. EYES: Normal reaction of pupils, equal size. Conjunctiva pink, sclera white. NOSE: Clear with pink turbinates. THROAT: No erythema or exudates. NECK: No masses, no JVD, no thyroid enlargement, no adenopathy. CHEST: No chest wall deformity. Symmetrical expansion. LUNGS: Equal air entry with diffuse wheezes throughout, diminished breath sounds CVS: Regular rate and rhythm, normal S1 and S2, no gallops, no murmurs, no rubs ABDOMEN: Soft, nontender. No hepatosplenomegaly, normal bowel sounds, no guarding or rigidity. EXTREMITIES: No clubbing, no edema, no cyanosis, 2+ pulses and upper and lower extremities. MUSCULOSKELETAL: Muscle strength and tone normal. SPINE: No scoliosis or deformity SKIN: No rashes CENTRAL NERVOUS SYSTEM: Alert and oriented -3. No focal deficits, tone is normal in all 4 extremities. PSYCHIATRIC: Alert and oriented -3. Appropriate affect. Intact judgment and insight. - Labs CBC & Chem 7: 01/21/19 00:18 01/21/19 00:18 Labs: Abnormal Lab Results - Last 24 Hours (Table) 01/22/19 01/23/19 01/23/19 Range/Units 20:11 07:01 11:58 POC Glucose (mg/dL) 168 H 152 H 102 H (75-99) mg/dL Microbiology - Last 24 Hours (Table) 01/21/19 00:18 Blood Culture - Preliminary Blood No Growth after 48 hours Assessment and Plan Plan: Assessment: #1 Acute exacerbation of severe oxygen dependent, steroid dependent chronic obstructive pulmonary disease. #2 Chronic and ongoing tobacco dependence. #3 Attention deficit hyperactivity disorder. #4 Bipolar disorder. #5 Anxiety disorder. Plan: Continue current medical treatment, continue Pulmicort, Perforomist, DuoNeb, steroids, still quite bronchospastic and wheezy, very slightly improved, continue with empiric antibiotics, not quite back to baseline. We'll continue to follow I performed a history & physical examination of the patient and discussed their management with my nurse practitioner, Cristiane Saucedo. I reviewed the nurse practitioner's note and agree with the documented findings and plan of care. Lung sounds are positive for diffuse wheezes throughout the lung vela. The findings and the impression was discussed with the patient. I attest to the documentation by the nurse practitioner. Time with Patient: Less than 30
--- NOTE | 2019-01-23 16:36 | P.PN ---
Subjective patient with advanced COPD is admitted for presumed exacerbation still wheezing quite a bit. We'll continue with inhaled steroids systemic steroids and inhalational treatments. Patient is still short of breath but doesn't keep the oxygen on. 01/15/2019 -Patient is feeling better with no significant improvement in her wheezing. Constitutional: Denied any fatigue denied any fever. Cardio vascular: denied any chest pain, palpitations Gastrointestinal denied any nausea vomiting Pulmonary: mentioned in HPI Neurologic denied any new focal deficits All inpatient medications were reviewed and appropriate changes in these medications as dictated in the interval history and assessment and plan. Objective - Vital Signs Vital signs: Vital Signs Temp 97.8 F 01/23/19 15:00 Pulse 76 01/23/19 15:48 Resp 16 01/23/19 15:00 BP 132/78 01/23/19 15:00 Pulse Ox 96 01/23/19 15:00 Intake & Output 01/22/19 01/23/19 01/23/19 18:59 06:59 18:59 Intake Total 988 Balance 988 Intake: Intake, IV Titration 100 Amount Sodium Chloride 0.9% 1, 100 000 ml @ 100 mls/hr IV . Q10H [facility] Rx#:[id number] Oral 888 Other: Voiding Method Toilet # Voids 2 3 - Exam PHYSICAL EXAMINATION: GENERAL: The patient is alert and oriented x3, not in any acute distress. Well developed, well nourished. HEENT: Pupils are round and equally reacting to light. EOMI. No scleral icterus. No conjunctival pallor. Normocephalic, atraumatic. No pharyngeal erythema. No thyromegaly. CARDIOVASCULAR: S1 and S2 present. No murmurs, rubs, or gallops. PULMONARY: Decreased air entry into bilateral lung vela with significant expiratory wheezing ABDOMEN: Soft, nontender, nondistended, normoactive bowel sounds. No palpable organomegaly. MUSCULOSKELETAL: No joint swelling or deformity. EXTREMITIES: No cyanosis, clubbing, or pedal edema. NEUROLOGICAL: Gross neurological examination did not reveal any focal deficits. SKIN: No rashes. - Labs CBC & Chem 7: 01/21/19 00:18 01/21/19 00:18 Labs: Abnormal Lab Results - Last 24 Hours (Table) 01/22/19 01/23/19 01/23/19 Range/Units 20:11 07:01 11:58 POC Glucose (mg/dL) 168 H 152 H 102 H (75-99) mg/dL Microbiology - Last 24 Hours (Table) 01/21/19 00:18 Blood Culture - Preliminary Blood No Growth after 48 hours Assessment and Plan Plan: -Acute on chronic hypercapnic respiratory failure secondary to COPD exacerbation nicotine cessation counseling was provided, patient will be can you on systemic steroids inhalational treatments along with azithromycin.there is very minimal of no improvement competitors stress still wheezing quite a bit -Anxiety disorder and depression: continue with home medications advised to wean off benzodiazepines as outpatient -Hypertension -Continued nicotine use: Counseling was provided DVT prophylaxis with enoxaparin
[2019-01-23 17:03] LABS: Glucose,Whole Blood 122 mg/dL (75-99)
[2019-01-23 20:36] LABS: Glucose,Whole Blood 122 mg/dL (75-99)
[2019-01-23] MEDS: QUEtiapine 100 MG TAB PO SCH (21:13)
[2019-01-24 06:45] LABS: Glucose,Whole Blood 152 mg/dL (75-99)
[2019-01-24 07:15] LABS: HCT 41.6 % (34.0-46.0); HGB 13.5 gm/dL (11.4-16.0); MCH 31.5 pg (25.0-35.0); MCHC 32.4 g/dL (31.0-37.0); MCV 97.4 fL (80.0-100.0); Mean Platelet Volume 6.4; Platelet Count 226 k/uL (150-450); RBC 4.28 m/uL (3.80-5.40); RDW 12.8 % (11.5-15.5); WBC 6.5 k/uL (3.8-10.6)
[2019-01-24 07:27] LABS: African American GFR (CKD) >90 (>60 ml/min/1.73 sqM); Anion Gap 2 mmol/L; Blood Urea Nitrogen 15 mg/dL (7-17); Calcium 8.7 mg/dL (8.4-10.2); Carbon Dioxide 33 mmol/L (22-30); Chloride 104 mmol/L (98-107); Glucose 115 mg/dL (74-99); Potassium 4.3 mmol/L (3.5-5.1); Sodium 139 mmol/L (137-145)
[2019-01-24] MEDS: INSULIN ASPART (NovoLOG) 100 UNIT/ML VIAL SQ SCH ×2 (07:30→12:01)
[2019-01-24] MEDS: NICOTINE 21MG/24HR PATCH TRANSDERM SCH (07:42)
[2019-01-24] MEDS: methylPREDNISolone SOD SUCCI 40 MG/ML 1 ML VIAL IV SCH (07:42)
[2019-01-24] MEDS: ENOXAPARIN 40 MG/0.4 ML SYRINGE SQ SCH (07:42)
[2019-01-24] MEDS: SERTRALINE 50 MG TAB PO SCH (07:43)
[2019-01-24] MEDS: ALPRAZolam 1 MG TAB PO PRN (07:43)
[2019-01-24] MEDS: HYDROcodone/APAP 10-325MG 1 EACH TAB PO PRN ×2 (07:43→13:22)
[2019-01-24 07:54] VITALS: BP 122/81; RESP 16; TEMP 98.1
[2019-01-24] MEDS: ALBUTEROL NEBULIZED 2.5 MG/3 ML INHALATION SCH ×2 (07:59→13:28)
[2019-01-24] MEDS: FORMOTEROL FUMARATE 20 MCG/2 ML NEBU INHALATION SCH (07:59)
[2019-01-24] MEDS: BUDESONIDE 1 MG/2 ML NEBU INHALATION SCH (07:59)
[2019-01-24 10:46] VITALS: PULSE 63
[2019-01-24 11:37] LABS: Glucose,Whole Blood 113 mg/dL (75-99)
--- NOTE | 2019-01-24 13:44 | P.PN ---
Subjective Progress Note Date: 01/24/19 Principal diagnosis: Acute exacerbation of chronic obstructive pulmonary disease This is a very pleasant 53-year-old female patient who follows with Natasha Figueroa as her healthcare provider. He has a history of hypertension, restless leg syndrome, migraines, hearing impairment, ADHD, bipolar disorder, anxiety. She also has a history of chronic and ongoing tobacco dependence and chronic obstructive pulmonary disease. On home oxygen. She was last seen by Dr. Brannon in our office in May 2017. She was to be on Symbicort, albuterol, maintenance prednisone at 5 mg daily. For the past several days she has had increasing shortness of breath, cough and congestion. She states she had been out of for her inhalers. His x-ray showed no acute cardiopulmonary process. She is seen today in consultation on the regular medical floor. She is awake and alert in mild respiratory distress. Dyspneic on minimal exertion and conversation. Did require BiPAP support throughout the night but takes it off frequently. Settings are 10/5 and 35% FiO2. Currently on 4 L/m per nasal cannula. She's afebrile. Hemodynamically stable. She was initiated on DuoNeb inhalations, IV Solu-Medrol, Lovenox for DVT prophylaxis. Reevaluated today on 01/22/2019, patient continues to cough and wheeze. Continues to have shortness of breath. Maximized on her bronchodilators, she is on oxygen, antibiotics, minimal improvement if any. Hence she is not quite ready for any discharge planning today. On 01/23/2019 patient seen in follow-up on medical surgical floor. She is awake and alert, in no acute distress, still moderately dyspneic, and wheezy, she remains on 3-4 L of oxygen, the pulse ox of 94%, she is off the BiPAP support, she is afebrile, hemodynamically stable, she states there is some minimal improvement since she came in, she still complains of chest tightness, wheezing and coughing, she is been on a smoker for 34 years, of one pack of cigarettes or more on a daily basis, patient is on recommendation of IV steroids, nebulized bronchodilators, Pulmicort, Perforomist, and DuoNeb, she is on nicotine patch. No new labs no new chest x-rays, her initial chest x-ray on 01/20/2019 showed no active cardiopulmonary disease, patient is being treated for acute COPD ex acerbation. Initial chest x-ray showed no acute pulmonary disease. The patient is seen today 01/24/2019 in follow-up on the regular medical floor. She is currently sitting up at the bedside. Awake and alert in no acute distress. She is still dyspneic with exertion. She's been afebrile. Blood c ulture reveals no growth. White count 6.5. Hemoglobin 13.5. Creatinine 0.46. She remains on DuoNeb inhalations, Pulmicort and Perforomist inhalations, IV Solu-Medrol. NicoDerm patch in place. Objective - Vital Signs Vital signs: Vital Signs Temp 98.1 F 01/24/19 07:00 Pulse 63 01/24/19 08:20 Resp 16 01/24/19 08:20 BP 122/81 01/24/19 07:00 Pulse Ox 96 01/24/19 07:00 Intake & Output 01/23/19 01/24/19 01/24/19 18:59 06:59 18:59 Intake Total 118 Balance 118 Intake: Oral 118 Other: Voiding Method Toilet Toilet Toilet # Voids 3 2 2 - Exam GENERAL EXAM: Alert, active, and 2 L/m per nasal cannula,comfortable in no apparent distress. HEAD: Normocephalic. EYES: Normal reaction of pupils, equal size. NOSE: Clear with pink turbinates. THROAT: No erythema or exudates. NECK: No masses, no JVD. CHEST: No chest wall deformity. LUNGS: Equal air entry with bilateral end expiratory wheeze, diminished. CVS: S1 and S2 normal with no audible murmur, regular rhythm. ABDOMEN: No hepatosplenomegaly, normal bowel sounds, no guarding or rigidity. SPINE: No scoliosis or deformity SKIN: No rashes CENTRAL NERVOUS SYSTEM: No focal deficits, tone is normal in all 4 extremities. EXTREMITIES: There is no peripheral edema. No clubbing, no cyanosis. Peripheral pulses are intact. - Labs CBC & Chem 7: 01/24/19 06:30 01/24/19 06:30 Labs: Abnormal Lab Results - Last 24 Hours (Table) 01/23/19 01/23/19 01/24/19 Range/Units 17:01 20:34 06:30 Carbon Dioxide 33 H (22-30) mmol/L Creatinine 0.46 L (0.52-1.04) mg/dL Glucose 115 H (74-99) mg/dL POC Glucose (mg/dL) 122 H 122 H (75-99) mg/dL 01/24/19 01/24/19 Range/Units 06:44 11:25 Carbon Dioxide (22-30) mmol/L Creatinine (0.52-1.04) mg/dL Glucose (74-99) mg/dL POC Glucose (mg/dL) 152 H 113 H (75-99) mg/dL Microbiology - Last 24 Hours (Table) 01/21/19 00:18 Blood Culture - Preliminary Blood No Growth after 72 hours Assessment and Plan Assessment: Impression: #1 Acute exacerbation of severe oxygen dependent, steroid dependent chronic obstructive pulmonary disease. #2 Chronic and ongoing tobacco dependence. #3 Attention deficit hyperactivity disorder. #4 Bipolar disorder. #5 Anxiety disorder. Plan: The patient was seen and evaluated by Dr. Graham. She is cleared for discharge from the pulmonary standpoint. Complete prednisone burst and taper. She is again educated regarding the importance of complete smoking cessation. NicoDerm patch in place. Follow-up in our office in 1-2 weeks' time. She is however encouraged to call sooner if any recurrence of symptoms or other questions or concerns. I, the cosigning physician, performed a history & physical examination of the patient. Lungs sounds with bilateral end expiratory wheeze, diminished Maintaining good O2 saturations in the 90s on 2 L/m per nasal cannula alternating with BiPAP at 35% FiO2 I discussed the assessment and plan of care with my nurse practitioner, Catia Lentz. I attest to the above consultation as dictated by her.
--- NOTE | 2019-01-24 14:35 | P.DS ---
Providers Date of admission: 01/20/19 23:08 Expected date of discharge: 01/24/19 Attending physician: Rajeev Arechiga Consults: 01/20/19 23:16 Consult Physician Routine Consulting Provider: John Brannon Consult Reason/Comments: known Do you want consulting provider notified?: Yes Primary care physician: [facility] Course: Final diagnosis -Acute on chronic hypercapnic respiratory failure secondary to COPD exacerbation -Anxiety disorder and depression -Hypertension -Continued nicotine use: Counseling was provided -DVT prophylaxis Discharge disposition Patient is being discharged in a stable condition with guarded prognosis to home and will follow-up with pulmonary in the outpatient setting upon discharge. Patient will also follow-up with primary care provider upon discharge as well. Patient will continue on a prednisone taper. Total time taken is 35 minutes. History of present illness This is a 53-year-old female who was recently admitted with advanced COPD with presumed exacerbation and wheezing and was being closely monitored. Pulmonary was following. Currently patient's breathing is better and states that she still gets slightly winded with exertion and also still having some wheezing that has slightly improved since yesterday. Patient denies any chest pain or palpitations at this time. Patient is afebrile. Patient denies any nausea or vomiting and is tolerating diet. Patient states she isn't eating much she doesn't have much of an appetite at this time. Discussed at length with the patient about smoking cessation and a prescription was written for nicotine patches for discharge. Patient will follow-up with pulmonary in 1-2 weeks time in the outpatient setting. Guarded prognosis. On exam vital signs are stable. Temp is 98.1F, pulse is 63, respirations are 16, blood pressure is 122/81, oxygen saturation is 96% on 2 L. Cardio S1 and S2 are present. Respiratory system shows diminished breath sounds at the bases with expiratory wheezing noted on exam. Abdomen is soft and nontender. Nervous system shows no focal deficits and gait is steady. Please refer to medication reconciliation sheet for a list of medications. Patient Condition at Discharge: Fair Plan - Discharge Summary New Discharge Prescriptions: New Nicotine 21Mg/24Hr Patch [Habitrol] 1 patch TRANSDERM DAILY #20 patch Promethazine [Phenergan] 12.5 mg PO Q4HR PRN #12 tab PRN Reason: Cough predniSONE 10 mg PO DIRECTED #30 tab Continue QUEtiapine [SEROquel] 100 mg PO HS Sertraline [Zoloft] 150 mg PO DAILY rOPINIRole HCL [Requip] 0.5 mg PO BID@0900,1700 Albuterol Inhaler [Ventolin Hfa Inhaler] 2 puff INHALATION RT-Q4H PRN PRN Reason: Shortness Of Breath Budesonide-Formot 160-4.5 Mcg [Symbicort 160-4.5 Mcg Inhaler] 2 puff INHALATION RT-BID #1 inhaler Ipratropium-Albuterol Nebulize [Duoneb 0.5 mg-3 mg/3 ml Soln] 3 ml INHALATION RT-Q4H PRN PRN Reason: Shortness Of Breath HYDROcodone/APAP 10-325MG [[place] 10-325] 1 tab PO TID PRN PRN Reason: Pain ALPRAZolam [Xanax] 1 mg PO TID PRN PRN Reason: Anxiety Albuterol Nebulized (Conc) [Ventolin Nebulized (Conc)] 1.25 mg INHALATION Q6H PRN PRN Reason: Shortness Of Breath Discharge Medication List QUEtiapine [SEROquel] 100 mg PO HS 12/31/15 [History] Sertraline [Zoloft] 150 mg PO DAILY 02/05/18 [History] rOPINIRole HCL [Requip] 0.5 mg PO BID@0900,1700 02/05/18 [History] Albuterol Inhaler [Ventolin Hfa Inhaler] 2 puff INHALATION RT-Q4H PRN 09/15/18 [History] Budesonide-Formot 160-4.5 Mcg [Symbicort 160-4.5 Mcg Inhaler] 2 puff INHALATION RT-BID #1 inhaler 09/19/18 [Rx] ALPRAZolam [Xanax] 1 mg PO TID PRN 01/20/19 [History] Albuterol Nebulized (Conc) [Ventolin Nebulized (Conc)] 1.25 mg INHALATION Q6H PRN 01/20/19 [History] HYDROcodone/APAP 10-325MG [[place] 10-325] 1 tab PO TID PRN 01/20/19 [History] Ipratropium-Albuterol Nebulize [Duoneb 0.5 mg-3 mg/3 ml Soln] 3 ml INHALATION RT-Q4H PRN 01/20/19 [History] Nicotine 21Mg/24Hr Patch [Habitrol] 1 patch TRANSDERM DAILY #20 patch 01/24/19 [Rx] Promethazine [Phenergan] 12.5 mg PO Q4HR PRN #12 tab 01/24/19 [Rx] predniSONE 10 mg PO DIRECTED #30 tab 01/24/19 [Rx] Follow up Appointment(s)/Referral(s): Natasha Figueroa MD [Primary Care Provider] - 02/02/19 2:40 pm (Please bring your D/C paperwork to your appt.) Activity/Diet/Wound Care/Special Instructions: Activity Limited until follow-up Primary care provider upon discharge Continue with prednisone taper until complete Continue current diet Follow-up with pulmonary upon discharge Avoid all tobacco use Discharge Disposition: HOME SELF-CARE
== END 2019-01-24 13:58 | disposition home or self-care (01) | DRG 190 ==
LOC: EC 22:37 → 4SSUR 23:08
PROVIDERS: ADMIT Hospitalist; ATTEND Hospitalist
PROC: 5A09357 Assistance with Respiratory Ventilation, Less than 24 Consecutive Hours, Continuous Positive Airway Pressure (ICD-10-PCS; principal; 2019-01-21)
DX: J44.1 Chronic obstructive pulmonary disease with (acute) exacerbation (principal); J96.22 Acute and chronic respiratory failure with hypercapnia; F17.210 Nicotine dependence, cigarettes, uncomplicated; F31.9 Bipolar disorder, unspecified; F41.0 Panic disorder [episodic paroxysmal anxiety]; F90.9 Attention-deficit hyperactivity disorder, unspecified type; G25.81 Restless legs syndrome; H91.92 Unspecified hearing loss, left ear; I10 Essential (primary) hypertension; G43.909 Migraine, unspecified, not intractable, without status migrainosus; G47.00 Insomnia, unspecified; M54.9 Dorsalgia, unspecified; G89.29 Other chronic pain; M54.2 Cervicalgia; Z79.51 Long term (current) use of inhaled steroids; Z79.52 Long term (current) use of systemic steroids; Z79.899 Other long term (current) drug therapy; Z99.81 Dependence on supplemental oxygen; Z91.14 Patient's other noncompliance with medication regimen; Z87.01 Personal history of pneumonia (recurrent); Z71.6 Tobacco abuse counseling; Z80.9 Family history of malignant neoplasm, unspecified
CPT/HCPCS: 36415; 71045; 80048; 80053; 82550; 83735; 83880; 84484; 85025; 85027; 85610; 85730; 87040; 93005; 94640; 94644; 94660; 94760; 96365; 96375; 96376; 99291

== ENCOUNTER 2019-05-30 18:10 | Inpatient (IN) | payer OTHER ==
[2019-05-30] MEDS ORDERED: methylPREDNISolone SOD SUCCI 125 MG/2 ML VIAL IV STA (18:28)
[2019-05-30] MEDS ORDERED: SODIUM CHLORIDE 0.9% 500 ML 500 ML IV STA (18:28)
[2019-05-30] MEDS ORDERED: ALBUTEROL NEBULIZED 2.5 MG/3 ML INHALATION STA (18:28)
[2019-05-30] MEDS ORDERED: IPRATROPIUM-ALBUTEROL 3 ML NEB INHALATION STA (18:30)
[2019-05-30 19:01] LABS: Basophils # (A) 0.1 k/uL (0-0.2); Basophils % (A) 0 %; Eosinophils # (A) 0.4 k/uL (0-0.7); Eosinophils % (A) 4 %; HCT 51.4 % (34.0-46.0); HGB 16.7 gm/dL (11.4-16.0); Lymphocytes # (A) 1.8 k/uL (1.0-4.8); Lymphocytes % (A) 16 %; MCH 30.6 pg (25.0-35.0); MCHC 32.6 g/dL (31.0-37.0); MCV 93.9 fL (80.0-100.0); Mean Platelet Volume 7.2; Monocytes # (A) 0.4 k/uL (0-1.0); Monocytes % (A) 3 %; Neutrophils # (A) 8.8 k/uL (1.3-7.7); Neutrophils % (A) 75 %; Platelet Count 342 k/uL (150-450); RBC 5.47 m/uL (3.80-5.40); RDW 12.8 % (11.5-15.5); WBC 11.7 k/uL (3.8-10.6)
[2019-05-30 19:05] LABS: ALT 19 U/L (4-34); AST 22 U/L (14-36); African American GFR (CKD) >90 (>60 ml/min/1.73 sqM); Albumin 4.2 g/dL (3.5-5.0); Alkaline Phosphatase 104 U/L (38-126); Anion Gap 8 mmol/L; Blood Urea Nitrogen 10 mg/dL (7-17); Calcium 9.7 mg/dL (8.4-10.2); Carbon Dioxide 30 mmol/L (22-30); Chloride 98 mmol/L (98-107); Glucose 136 mg/dL (74-99); Magnesium 2.1 mg/dL (1.6-2.3); Non-African American GFR(CKD) >90 (>60 ml/min/1.73 sqM); Potassium 4.5 mmol/L (3.5-5.1); Sodium 136 mmol/L (137-145); Total Bilirubin 0.4 mg/dL (0.2-1.3); Total Protein 6.9 g/dL (6.3-8.2)
[2019-05-30 19:07] LABS: INR 0.9 (<1.2); Partial Thromboplastin Time 24.1 sec (22.0-30.0); Prothrombin Time 9.8 sec (9.0-12.0)
--- NOTE | 2019-05-30 19:10 | ED ---
General Adult HPI - General Chief complaint: Shortness of Breath Stated complaint: Asthma,Shortness of Breath Time Seen by Provider: 05/30/19 18:20 Source: patient, RN notes reviewed, old records reviewed Mode of arrival: wheelchair Limitations: no limitations - History of Present Illness Initial comments: This is a 53-year-old female with a past medical history significant for COPD. Patient states she's had difficulty breathing over 2 days is gotten significantly worse per patient states she's had the point where she can barely breathe at all. Patient states she does continue to smoke. Patient denies chest pain difficulty breathing or shortness of breath per patient denies any fever chills. Patient denies any lightheadedness or dizziness. Patient denies numbness or weakness. Patient denies any abdominal pain. Patient denies nausea vomiting diarrhea per patient denies any swelling to the legs or calf tenderness. - Related Data Home Medications Medication Instructions Recorded Confirmed QUEtiapine [SEROquel] 100 mg PO HS 12/31/15 01/20/19 Sertraline [Zoloft] 150 mg PO DAILY 02/05/18 01/20/19 rOPINIRole HCL [Requip] 0.5 mg PO BID@0900,1700 02/05/18 01/20/19 Albuterol Inhaler [Ventolin Hfa 2 puff INHALATION RT-Q4H PRN 09/15/18 01/20/19 Inhaler] ALPRAZolam [Xanax] 1 mg PO TID PRN 01/20/19 01/20/19 Albuterol Nebulized (Conc) 1.25 mg INHALATION Q6H PRN 01/20/19 01/20/19 [Ventolin Nebulized (Conc)] HYDROcodone/APAP 10-325MG [[place] 1 tab PO TID PRN 01/20/19 01/21/19 10-325] Ipratropium-Albuterol Nebulize 3 ml INHALATION RT-Q4H PRN 01/20/19 01/20/19 [Duoneb 0.5 mg-3 mg/3 ml Soln] Previous Rx's Medication Instructions Recorded Budesonide-Formot 160-4.5 Mcg 2 puff INHALATION RT-BID #1 inhaler 09/19/18 [Symbicort 160-4.5 Mcg Inhaler] Nicotine 21Mg/24Hr Patch [Habitrol] 1 patch TRANSDERM DAILY #20 patch 01/24/19 Promethazine [Phenergan] 12.5 mg PO Q4HR PRN #12 tab 01/24/19 predniSONE 10 mg PO DIRECTED #30 tab 01/24/19 Allergies Allergy/AdvReac Type Severity Reaction Status Date / Time No Known Allergies Allergy Verified 05/30/19 18:22 Review of Systems ROS Statement: Those systems with pertinent positive or pertinent negative responses have been documented in the HPI. ROS Other: All systems not noted in ROS Statement are negative. Past Medical History Past Medical History: Asthma, COPD, Hearing Disorder / Deafness, Hypertension, Pneumonia Additional Past Medical History / Comment(s): Tracheobronchitis, deaf L ear and [place] in R ear, chronic cervical/back pain, RLS, migraines, insomnia. History of Any Multi-Drug Resistant Organisms: None Reported Past Surgical History: Ear Surgery Additional Past Surgical History / Comment(s): Multiple bilateral ear tubes as child; has had L ear reconstruction, pain clinic procedures. Past Anesthesia/Blood Transfusion Reactions: No Reported Reaction Additional Past Anesthesia/Blood Transfusion Reaction / Comment(s): Pt has no problems with anesthetics and has never recieved blood. Past Psychological History: ADD/ADHD, Bipolar, Depression, Panic Disorder Smoking Status: Current every day smoker Past Alcohol Use History: Occasional Past Drug Use History: Marijuana - Past Family History Mother Family Medical History: Cancer Additional Family Medical History / Comment(s): Mother had "a few kinds of cancers" and from cancer at age 60 yrs. Father History Unknown: Yes Family Medical History: Unable to Obtain Additional Family Medical History / Comment(s): Pt does not know her father. General Exam - General Exam Comments Initial Comments: GENERAL: Patient is well-developed and well-nourished. Patient is nontoxic and well- hydrated and is in moderate distress. ENT: Neck is soft and supple. No significant lymphadenopathy is noted. Oropharynx is clear. Moist mucous membranes. Neck has full range of motion without e liciting any pain. EYES: The sclera were anicteric and conjunctiva were pink and moist. Extraocular movements were intact and pupils were equal round and reactive to light. Eyelids were unremarkable. PULMONARY: Patient has significant diminished breath sounds and wheezing throughout CARDIOVASCULAR: There is a regular rate and rhythm without any murmurs gallops or rubs. ABDOMEN: Soft and nontender with normal bowel sounds. SKIN: Skin is clear with no lesions or rashes and otherwise unremarkable. NEUROLOGIC: Patient is alert and oriented x3. Cranial nerves II through XII are grossly intact. Motor and sensory are also intact. Normal speech, volume and content. Symmetrical smile. MUSCULOSKELETAL: Normal extremities with adequate strength and full range of motion. No lower extremity swelling or edema. No calf tenderness. LYMPHATICS: No significant lymphadenopathy is noted PSYCHIATRIC: Normal psychiatric evaluation. Limitations: no limitations Course Vital Signs 05/30/19 05/30/19 05/30/19 18:19 18:31 18:41 Temperature 97.9 F Pulse Rate 104 H 114 H 103 H Respiratory 26 H Rate Blood Pressure 167/104 O2 Sat by Pulse 80 L Oximetry 05/30/19 05/30/19 05/30/19 18:49 18:54 18:57 Temperature Pulse Rate 109 H 102 H Respiratory 26 H 25 H Rate Blood Pressure 153/89 O2 Sat by Pulse 96 Oximetry 05/30/19 20:00 Temperature Pulse Rate 90 Respiratory 18 Rate Blood Pressure 124/80 O2 Sat by Pulse 98 Oximetry Medical Decision Making - Medical Decision Making Patient received 3 breathing treatments emergency department as well as steroids. Patient did improve but still continues to wheeze. I gave the patient Rocephin because she was complaining of cough though the x-ray did not show any obvious infiltrate. EKG shows a sinus rhythm at 95 bpm KS interval is 146 dresses 82 QT interval 360 QTC is 462. Patient's EKG shows no ST segment elevation or depression. I spoke with some physicians agreed to admit the patient admitted the patient wrote admitting orders I continued albuterol treatments as well as steroids on the floor. I also did an ABG on the patient and review those results. - Lab Data Result diagrams: 05/30/19 18:48 05/30/19 18:48 Lab Results 05/30/19 05/30/19 05/30/19 Range/Units 18:48 18:48 18:48 WBC 11.7 H (3.8-10.6) k/uL RBC 5.47 H (3.80-5.40) m/uL Hgb 16.7 H (11.4-16.0) gm/dL Hct 51.4 H (34.0-46.0) % MCV 93.9 (80.0-100.0) fL MCH 30.6 (25.0-35.0) pg MCHC 32.6 (31.0-37.0) g/dL RDW 12.8 (11.5-15.5) % Plt Count 342 (150-450) k/uL Neutrophils % 75 % Lymphocytes % 16 % Monocytes % 3 % Eosinophils % 4 % Basophils % 0 % Neutrophils # 8.8 H (1.3-7.7) k/uL Lymphocytes # 1.8 (1.0-4.8) k/uL Monocytes # 0.4 (0-1.0) k/uL Eosinophils # 0.4 (0-0.7) k/uL Basophils # 0.1 (0-0.2) k/uL PT 9.8 (9.0-12.0) sec INR 0.9 (<1.2) APTT 24.1 (22.0-30.0) sec Sample Site ABG pH (7.35-7.45) ABG pCO2 (35-45) mmHg ABG pO2 (83-108) mmHg ABG HCO3 (21-25) mmol/L ABG Total CO2 (19-24) mmol/L ABG O2 Saturation (94-97) % ABG Base Excess mmol/L Rick Test FiO2 % Sodium 136 L (137-145) mmol/L Potassium 4.5 (3.5-5.1) mmol/L Chloride 98 (98-107) mmol/L Carbon Dioxide 30 (22-30) mmol/L Anion Gap 8 mmol/L BUN 10 (7-17) mg/dL Creatinine 0.51 L (0.52-1.04) mg/dL Est GFR (CKD-EPI)AfAm >90 (>60 ml/min/1.73 sqM) Est GFR (CKD-EPI)NonAf >90 (>60 ml/min/1.73 sqM) Glucose 136 H (74-99) mg/dL Plasma Lactic Acid Sedrick (0.7-2.0) mmol/L Calcium 9.7 (8.4-10.2) mg/dL Magnesium 2.1 (1.6-2.3) mg/dL Total Bilirubin 0.4 (0.2-1.3) mg/dL AST 22 (14-36) U/L ALT 19 (4-34) U/L Alkaline Phosphatase 104 (38-126) U/L Troponin I (0.000-0.034) ng/mL Total Protein 6.9 (6.3-8.2) g/dL Albumin 4.2 (3.5-5.0) g/dL 05/30/19 05/30/19 05/30/19 Range/Units 18:48 18:48 20:00 WBC (3.8-10.6) k/uL RBC (3.80-5.40) m/uL Hgb (11.4-16.0) gm/dL Hct (34.0-46.0) % MCV (80.0-100.0) fL MCH (25.0-35.0) pg MCHC (31.0-37.0) g/dL RDW (11.5-15.5) % Plt Count (150-450) k/uL Neutrophils % % Lymphocytes % % Monocytes % % Eosinophils % % Basophils % % Neutrophils # (1.3-7.7) k/uL Lymphocytes # (1.0-4.8) k/uL Monocytes # (0-1.0) k/uL Eosinophils # (0-0.7) k/uL Basophils # (0-0.2) k/uL PT (9.0-12.0) sec INR (<1.2) APTT (22.0-30.0) sec Sample Site left radial ABG pH 7.37 (7.35-7.45) ABG pCO2 50 H (35-45) mmHg ABG pO2 69 L (83-108) mmHg ABG HCO3 29 H (21-25) mmol/L ABG Total CO2 30 H (19-24) mmol/L ABG O2 Saturation 93.6 L (94-97) % ABG Base Excess 3.6 mmol/L Rick Test Yes FiO2 32 % Sodium (137-145) mmol/L Potassium (3.5-5.1) mmol/L Chloride (98-107) mmol/L Carbon Dioxide (22-30) mmol/L Anion Gap mmol/L BUN (7-17) mg/dL Creatinine (0.52-1.04) mg/dL Est GFR (CKD-EPI)AfAm (>60 ml/min/1.73 sqM) Est GFR (CKD-EPI)NonAf (>60 ml/min/1.73 sqM) Glucose (74-99) mg/dL Plasma Lactic Acid Sedrick 1.1 (0.7-2.0) mmol/L Calcium (8.4-10.2) mg/dL Magnesium (1.6-2.3) mg/dL Total Bilirubin (0.2-1.3) mg/dL AST (14-36) U/L ALT (4-34) U/L Alkaline Phosphatase (38-126) U/L Troponin I <0.012 (0.000-0.034) ng/mL Total Protein (6.3-8.2) g/dL Albumin (3.5-5.0) g/dL Critical Care Time Critical Care Time: Yes Total Critical Care Time: 35 Disposition Clinical Impression: COPD with acute exacerbation Disposition: ADMITTED IP TO THIS HOSP Referrals: Natasha Figueroa MD [Primary Care Provider] - 1-2 days Time of Disposition: 19:51
--- NOTE | 2019-05-30 19:29 | XR ---
EXAMINATION TYPE: XR chest 2V DATE OF EXAM: 05/30/2019 COMPARISON: 01/20/2019 HISTORY: Difficulty breathing TECHNIQUE: FINDINGS: Heart is normal. Lungs are clear of infiltrate. There is no heart failure. There is flatten ing of the diaphragm. Bony thorax is intact. IMPRESSION: There is evidence of COPD. No change compared to old exam. Normal heart.
[2019-05-30] MEDS ORDERED: IPRATROPIUM-ALBUTEROL 3 ML NEB INHALATION PRN (19:51)
[2019-05-30 20:12] LABS: ABG Base Excess 3.6 mmol/L; ABG HCO3 29 mmol/L (21-25); ABG Oxygen Saturation 93.6 % (94-97); ABG PCO2 50 mmHg (35-45); ABG PH 7.37 (7.35-7.45); ABG PO2 69 mmHg (83-108); ABG TCO2 30 mmol/L (19-24); Allen Test Performed? Yes
[2019-05-31] MEDS ORDERED: HYDROcodone/APAP 10-325MG 1 EACH TAB PO PRN (00:42)
[2019-05-31] MEDS ORDERED: ALPRAZolam 1 MG TAB PO PRN (00:42)
[2019-05-31] MEDS: methylPREDNISolone SOD SUCCI 125 MG/2 ML VIAL IV SCH ×4 (00:44→18:15)
[2019-05-31] MEDS: guaiFENesin-DM 100-10MG/5ML 10 ML CUP PO PRN ×2 (01:41→22:07)
[2019-05-31] MEDS: QUEtiapine 100 MG TAB PO SCH ×2 (01:41→20:35)
--- NOTE | 2019-05-31 01:47 | P.HPIM ---
History of Present Illness H&P Date: 05/30/19 The patient is a 53-year-old female with a PMH of COPD, chronic hypoxic respiratory failure (on 2L NC at home), anxiety, and bipolar disorder who presented to the ED with gradually worsening shortness of breath. Patient notes that over the past 4-5 days, she noticed that her breathing worsened and she had increasing amount of cough. She noted that the cough was initially productive of white phlegm which then changed to yellow/green. The patient also notes that she has been unable to obtain her oxygen due to insurance issues and thereby has not been using it. She also noted pleuritic chest pain occurring bilaterally. She denied fever, chills, nausea, vomiting, or diaphoresis. She notes continued cigarette smoking, currently 3-4 cigarettes per day. The patient underwent an extensive evaluation in the emergency room. Her vitals were 153/89, pulse 102, respiratory rate 25, SpO2 96% on 3 L of nasal cannula. Chest x-ray was consistent with COPD, with laboratory evaluation showing WBC count of 11.7, hemoglobin 16.7, platelets 342, sodium 136, potassium 4.5, BUN 10, creatinine 0.5, glucose 136, and troponin less than 0.012. The patient was given IV Solu- Medrol and breathing treatments and was admitted for further management. Review of Systems Pertinent positives and negatives as discussed in HPI, a complete review of systems was performed and all other systems are negative. Past Medical History Past Medical History: Asthma, COPD, Hearing Disorder / Deafness, Hypertension, Pneumonia Additional Past Medical History / Comment(s): Tracheobronchitis, deaf L ear and [place] in R ear, chronic cervical/back pain, RLS, migraines, insomnia. History of Any Multi-Drug Resistant Organisms: None Reported Past Surgical History: Ear Surgery Additional Past Surgical History / Comment(s): Multiple bilateral ear tubes as c hild; has had L ear reconstruction, pain clinic procedures. Past Anesthesia/Blood Transfusion Reactions: No Reported Reaction Additional Past Anesthesia/Blood Transfusion Reaction / Comment(s): Pt has no problems with anesthetics and has never recieved blood. Past Psychological History: ADD/ADHD, Bipolar, Depression, Panic Disorder Smoking Status: Current every day smoker Past Alcohol Use History: Occasional Past Drug Use History: Marijuana - Past Family History Mother Family Medical History: Cancer Additional Family Medical History / Comment(s): Mother had "a few kinds of cancers" and from cancer at age 60 yrs. Father History Unknown: Yes Family Medical History: Unable to Obtain Additional Family Medical History / Comment(s): Pt does not know her father. Medications and Allergies Home Medications Medication Instructions Recorded Confirmed Type QUEtiapine [SEROquel] 100 mg PO HS 12/31/15 05/30/19 History rOPINIRole HCL [Requip] 0.5 mg PO HS 02/05/18 05/30/19 History Albuterol Inhaler [Ventolin Hfa 2 puff INHALATION RT-Q4H PRN 09/15/18 05/30/19 History Inhaler] ALPRAZolam [Xanax] 1 mg PO TID PRN 01/20/19 05/30/19 History Albuterol Nebulized (Conc) 2.5 mg INHALATION RT-QID PRN 01/20/19 05/30/19 History [Ventolin Nebulized (Conc)] HYDROcodone/APAP 10-325MG [[place] 1 tab PO TID PRN 01/20/19 05/30/19 History 10-325] Fluticasone Propion/Salmeterol 1 puff INHALATION RT-BID 05/30/19 05/30/19 History [[place] 250-50 [place]] PARoxetine HCL [Paxil] 10 mg PO DAILY 05/30/19 05/30/19 History guaiFENesin-DM 100-10MG/5ML 10 ml PO Q6H PRN 05/30/19 05/30/19 History [Robitussin DM] Allergies Allergy/AdvReac Type Severity Reaction Status Date / Time No Known Allergies Allergy Verified 05/30/19 18:22 Physical Exam Vitals: Vital Signs Temp Pulse Resp BP Pulse Ox 05/30/19 20:00 90 18 124/80 98 05/30/19 18:57 102 H 25 H 153/89 96 05/30/19 18:54 109 H 05/30/19 18:49 26 H 05/30/19 18:41 103 H 05/30/19 18:31 114 H 05/30/19 18:19 97.9 F 104 H 26 H 167/104 80 L Intake and Output 05/30/19 05/30/19 05/30/19 06:59 14:59 22:59 Other: Weight 58.06 kg General: non toxic, no distress, appears older than stated age, normal weight Derm: no unusual rashes/lesions no unusual ecchymoses, warm, dry Head: atraumatic, normocephalic, symmetric Eyes: EOMI, no lid lag, anicteric sclera, pupils equal round reactive to light ENT: Nose and ears atraumatic, no thrush, no pharyngeal erythema Neck: No thyromegaly, no cervical lymphadenopathy, trachea midline, supple Mouth: no lip lesion, mucus membranes moist Cardiovascular: S1S2 reg, no murmur, positive posterior tibial pulse bilateral, no edema, capillary refill less than 2 seconds Lungs: Bilateral wheezing, no rhonchi or rales appreciated, no accessory muscle use Abdominal: soft, nontender to palpation, no guarding, no appreciable organomegaly, normal bowel sounds Ext: no gross muscle atrophy, muscle strength 5 out of 5 in all 4 extremities grossly, no contractures, Neuro: CN II-XI grossly intact, light touch intact all 4 extremities, finger to nose within normal limits, Psych: Alert, oriented, appropriate affect Results CBC & Chem 7: 05/30/19 18:48 05/30/19 18:48 Labs: Abnormal Lab Results - Last 24 Hours (Table) 05/30/19 05/30/19 05/30/19 Range/Units 18:48 18:48 20:00 WBC 11.7 H (3.8-10.6) k/uL RBC 5.47 H (3.80-5.40) m/uL Hgb 16.7 H (11.4-16.0) gm/dL Hct 51.4 H (34.0-46.0) % Neutrophils # 8.8 H (1.3-7.7) k/uL ABG pCO2 50 H (35-45) mmHg ABG pO2 69 L (83-108) mmHg ABG HCO3 29 H (21-25) mmol/L ABG Total CO2 30 H (19-24) mmol/L ABG O2 Saturation 93.6 L (94-97) % Sodium 136 L (137-145) mmol/L Creatinine 0.51 L (0.52-1.04) mg/dL Glucose 136 H (74-99) mg/dL Assessment and Plan Plan: Acute on chronic hypoxic and hypercapnic respiratory failure in setting of acute COPD exacerbation -Supplemental oxygen -Continue with Solu-Medrol -DuoNeb's -Robitussin -Symbicort -BiPAP -Insulin supplementation scale Leukocytosis -Likely due to acute stress -Monitor for now Polycythemia, likely reactive due to chronic hypoxic respiratory failure -C/w COPD management Chronic conditions: Anxiety, Bipolar disorder -C/w home meds DVT prophylaxis -Heparin The patient is admitted with an anticipated less than 2 midnight stay for evaluation of COPD exacerbation CODE STATUS: Full Code Discussed with: Patient Anticipated discharge date: 1-[address]: Home A total of 40 minutes was spent on the care of this complex patient more than 50% of the time was spent in counseling and care coordination.
[2019-05-31] MEDS: IPRATROPIUM-ALBUTEROL 3 ML NEB INHALATION SCH ×6 (03:27→23:18)
[2019-05-31 05:53] LABS: Glucose,Whole Blood 211 mg/dL (75-99)
[2019-05-31] MEDS ORDERED: SODIUM CHLORIDE 0.9% 1,000 ML IV ONE (06:00)
[2019-05-31 06:34] LABS: HCT 46.8 % (34.0-46.0); MCH 30.2 pg (25.0-35.0); MCV 94.4 fL (80.0-100.0); Mean Platelet Volume 7.8; Platelet Count 322 k/uL (150-450); RBC 4.96 m/uL (3.80-5.40); RDW 12.9 % (11.5-15.5); WBC 4.9 k/uL (3.8-10.6)
[2019-05-31 06:54] LABS: African American GFR (CKD) >90 (>60 ml/min/1.73 sqM); Anion Gap 9 mmol/L; Blood Urea Nitrogen 16 mg/dL (7-17); Calcium 9.6 mg/dL (8.4-10.2); Carbon Dioxide 27 mmol/L (22-30); Chloride 100 mmol/L (98-107); Glucose 191 mg/dL (74-99); Non-African American GFR(CKD) >90 (>60 ml/min/1.73 sqM); Potassium 5.1 mmol/L (3.5-5.1); Sodium 136 mmol/L (137-145)
[2019-05-31] MEDS: INSULIN ASPART (NovoLOG) 100 UNIT/ML VIAL SQ SCH ×3 (07:03→18:07)
[2019-05-31] MEDS ORDERED: NALOXONE 0.4 MG/ML 1 ML VIAL IV PRN (07:25)
[2019-05-31] MEDS ORDERED: HYDROcodone/APAP 5-325MG 1 EACH TAB PO PRN (07:25)
[2019-05-31] MEDS ORDERED: ACETAMINOPHEN TAB 325 MG TAB PO PRN (07:25)
[2019-05-31] MEDS ORDERED: SYMBICORT 80-4.5 MCG INHALER INHALATION SCH (08:00)
[2019-05-31] MEDS: PARoxetine 10 MG TAB PO SCH (08:53)
[2019-05-31] MEDS: SODIUM CHLORIDE 0.9% 1,000 ML IV SCH ×2 (08:54→12:44)
[2019-05-31] MEDS: HEPARIN SODIUM,PORCINE 5,000 UNIT/ML 1 ML VIAL SQ SCH ×2 (08:54→18:08)
--- NOTE | 2019-05-31 11:12 | CONS ---
CONSULTATION PULMONARY/CRITICAL CARE CONSULTATION: DATE OF SERVICE: 05/31/2019 This is a 53-year-old female with a history of underlying COPD. She gets admitted to the hospital with complaints of shortness of breath. She came into the emergency room. She apparently told the emergency room physician that she had been having difficulty breathing over 2 days prior to admission. Today, she is not a particular good historian because she is very, very sleepy and fatigued. She keeps on dozing off asleep. Nonetheless, according to the ER note, she was having shortness of breath which has been progressively worse over 2 days prior to admission. Unfortunately, she continues to smoke cigarettes. She apparently denied any chest pain or chest discomfort. She had no fever or chills. She did have chest congestion and wheezing, chest tightness, and shortness of breath. Her cough is mostly nonproductive. She denies any lightheadedness or dizziness. There was no nausea, vomiting, diarrhea, or abdominal pain. There are no genitourinary complaints. The patient was basically admitted with a diagnosis of COPD exacerbation. She appears to be a CO2 retainer as her bicarbonate as her POC pCO2 on blood gas was 15. Her pH was normal. She was last seen by Dr. Brannon and myself in December of last year. . HOME MEDICATIONS: Include Seroquel, Zoloft, Requip Ventolin inhaler, Xanax, albuterol updrafts, [place], DuoNeb, Symbicort, nicotine patch, Phenergan, and prednisone. ALLERGIES: Denied. MEDICAL HISTORY: Positive for COPD/asthma, deafness, hypertension, pneumonia, tracheobronchitis, deafness in her left ear, chronic neck and back pain, restless legs syndrome, migraine cephalgia, and chronic insomnia. SURGICAL HISTORY: Includes multiple bilateral tympanostomy tubes as a child, and left the ear drum reconstruction. She has also had the procedures in the pain clinic. SOCIAL HISTORY: Positive for ongoing tobacco use. She drinks occasionally. She does use marijuana. FAMILY HISTORY: Positive for mother with who had a few different types of cancers. She at age 60. Father history is not known. REVIEW OF SYSTEMS: CONSTITUTIONAL: Negative. NEUROLOGIC: Negative. HEENT: Negative. CARDIOVASCULAR: Negative. PULMONARY: Shortness of breath. CHEST: Congestion, cough, wheezing. GI: Negative. : Negative. RHEUMATOLOGIC negative. IMMUNOLOGIC: Negative. ENDOCRINOLOGIC: Negative. Current vital signs are reviewed. Temperature is 97.4, heart rate 100, respiratory rate 18, blood pressure 90/53 with mean 65 6 L saturation 98%. Appears in no acute distress. HEENT: Examination is grossly unremarkable. Nasal O2 noted. NECK: Supple, full range of motion. No adenopathy. Neck veins are flat. CARDIOVASCULAR: Examination reveals regular rhythm and rate. S1, S2 normal. No S3, S4, or murmur. LUNGS: Reveal severely diminished breath sounds. A few scattered very mild expiratory wheezes. No rhonchi or crackles. Breath sounds are equal bilaterally. ABDOMEN: Soft, bowel sounds are heard. EXTREMITIES: Intact. No cyanosis, clubbing, or edema. SKIN: Without rash. NEUROLOGIC: Examination is brief but nonfocal. LAB DATA: Reviewed. White count 4.9, hemoglobin 15, hematocrit 46.8, platelet count 322,000, PT/INR and PTT normal. Blood gases yesterday in the emergency room on 32%, oxygen shows a pO2 of 69, a pCO2 of 50, and a pH of 7.37. Her bicarbonate concentration of blood gas was 29. Sodium 136, potassium 5.1, chloride 100, CO2 IS 27, anion gap is 9. BUN and creatinine were 16 and 0.54. The rest of her CMP is normal. Microbiology is negative. Chest x-ray done yesterday on admission shows no evidence of any acute changes. Findings of COPD/emphysema are noted. Current medications are reviewed. From the pulmonary standpoint, she is on Symbicort, Mucinex, and start guaifenesin DM, ceftriaxone, DuoNeb Solu-Medrol, and a saline IV. The other medications are her usual chronic medications. ASSESSMENT: 1. Chronic obstructive pulmonary disease exacerbation complicated by very mild purulent tracheobronchitis. 2. Ongoing tobacco use and nicotine addiction. 3. Probable stage III or stage IV chronic obstructive pulmonary disease as the patient appears to be a CO2 retainer. 4. History of deafness. 5. Hypertension. 6. Prior history of pneumonia. 7. History of tracheobronchitis. 8. Migraine cephalgia. 9. Restless legs syndrome. 10.Insomnia. 11.Chronic neck and back pain. PLAN: Medications are reviewed. Additional recommendations and suggestions are forthcoming. She is currently on appropriate medications. Likely stop ceftriaxone. I may give her an oral antibiotic for a few days. She is on Solu-Medrol Symbicort, which will be switched to Pulmicort and formoterol twice a day. She is also on DuoNeb. Additional recommendations and suggestions are forthcoming. ISABELLA / HAZEL: [id number] / MTDD
[2019-05-31 11:37] LABS: Glucose,Whole Blood 264 mg/dL (75-99)
[2019-05-31 11:46] VITALS: BMI 29.0
[2019-05-31] MEDS: AZITHROMYCIN 500 MG TAB PO SCH (12:39)
[2019-05-31] MEDS: ALPRAZolam 0.25 MG TAB PO PRN ×2 (12:40→22:07)
[2019-05-31] MEDS ORDERED: HYDROcodone/APAP 10-325MG 1 EACH TAB PO ONE (13:56)
--- NOTE | 2019-05-31 14:02 | P.PN ---
Subjective Progress Note Date: 05/31/19 Principal diagnosis: COPD exacerbation Patient was seen and examined. No acute events overnight. Patient reports continued shortness of breath and wheezing. She complains of cough and unable to produce sputum. She denies any chest pain or palpitations. No nausea or vomiting. No fever or chills. Requesting pain medication for back pain. Objective - Vital Signs Vital signs: Vital Signs Temp 97.5 F L 05/31/19 07:55 Pulse 116 H 05/31/19 11:38 Resp 22 05/31/19 07:55 BP 112/65 05/31/19 07:55 Pulse Ox 98 05/31/19 07:55 Intake & Output 05/30/19 05/31/19 05/31/19 18:59 06:59 18:59 Intake Total 580 1200 Balance 580 1200 Weight 58.06 kg 74.5 kg 74.5 kg Intake: Oral 580 1200 Other: Voiding Method Toilet Toilet # Voids 2 - Exam General: [non toxic], [no distress], [appears at stated age] Derm: [warm], [dry] Head: [atraumatic], [normocephalic], [symmetric] Eyes: [EOMI], [no lid lag], [anicteric sclera] Mouth: [no lip lesion], [mucus membranes moist] Cardiovascular: [S1S2 reg], [tachycardic], [positive DP pulse bilateral], Lungs: [Diffuse wheezing bilateral], [no rhonchi, no rales] , [no accessory muscle use] Abdominal: [soft], [ nontender to palpation], [no guarding], [no appreciable organomegaly] Ext: [no gross muscle atrophy], [no edema], [no contractures] Neuro: [no focal neuro deficits] Psych: [Alert], [oriented], [appropriate affect] - Labs CBC & Chem 7: 05/31/19 05:53 05/31/19 05:53 Labs: Abnormal Lab Results - Last 24 Hours (Table) 05/30/19 05/30/19 05/30/19 Range/Units 18:48 18:48 20:00 WBC 11.7 H (3.8-10.6) k/uL RBC 5.47 H (3.80-5.40) m/uL Hgb 16.7 H (11.4-16.0) gm/dL Hct 51.4 H (34.0-46.0) % Neutrophils # 8.8 H (1.3-7.7) k/uL ABG pCO2 50 H (35-45) mmHg ABG pO2 69 L (83-108) mmHg ABG HCO3 29 H (21-25) mmol/L ABG Total CO2 30 H (19-24) mmol/L ABG O2 Saturation 93.6 L (94-97) % Sodium 136 L (137-145) mmol/L Creatinine 0.51 L (0.52-1.04) mg/dL Glucose 136 H (74-99) mg/dL POC Glucose (mg/dL) (75-99) mg/dL 05/31/19 05/31/19 05/31/19 Range/Units 05:51 05:53 05:53 WBC (3.8-10.6) k/uL RBC (3.80-5.40) m/uL Hgb (11.4-16.0) gm/dL Hct 46.8 H (34.0-46.0) % Neutrophils # (1.3-7.7) k/uL ABG pCO2 (35-45) mmHg ABG pO2 (83-108) mmHg ABG HCO3 (21-25) mmol/L ABG Total CO2 (19-24) mmol/L ABG O2 Saturation (94-97) % Sodium 136 L (137-145) mmol/L Creatinine (0.52-1.04) mg/dL Glucose 191 H (74-99) mg/dL POC Glucose (mg/dL) 211 H (75-99) mg/dL 05/31/19 Range/Units 11:35 WBC (3.8-10.6) k/uL RBC (3.80-5.40) m/uL Hgb (11.4-16.0) gm/dL Hct (34.0-46.0) % Neutrophils # (1.3-7.7) k/uL ABG pCO2 (35-45) mmHg ABG pO2 (83-108) mmHg ABG HCO3 (21-25) mmol/L ABG Total CO2 (19-24) mmol/L ABG O2 Saturation (94-97) % Sodium (137-145) mmol/L Creatinine (0.52-1.04) mg/dL Glucose (74-99) mg/dL POC Glucose (mg/dL) 264 H (75-99) mg/dL Assessment and Plan Assessment: Acute on chronic hypoxic respiratory failure due to COPD exacerbation Acute bronchitis Anxiety and bipolar Restless leg syndrome Patient symptoms are consistent with COPD exacerbation. She is currently saturating low 90s on 6 L nasal cannula. She does have home oxygen which she states that she lost. Her symptoms are likely also triggered by acute bronchitis. Chest x-ray showed evidence of COPD. She has been started on DuoNeb scheduled and as needed for shortness of breath and wheezing. Solu- Medrol has been started. Robitussin for cough. Formoterol and budesonide has been started by pulmonology. We will discontinue IVF. She will be given supplemental oxygen to maintain O2 saturation greater than 90%. Social work is onboard along with case management in order to get her home oxygen if necessary along with nebulizer machine. She is being treated empirically for pneumonia with Rocephin and azithromycin. Seroquel and Paxil has been restarted for history of bipolar disorder. Ropinirole will be restarted for her restless leg syndrome. Pulmonology is on board. Patient is pending clinical improvement. Likely DC in 2-3 days.
[2019-05-31 16:43] LABS: Glucose,Whole Blood 241 mg/dL (75-99)
[2019-05-31] MEDS: BUDESONIDE 1 MG/2 ML NEBU INHALATION SCH (20:07)
[2019-05-31] MEDS: FORMOTEROL FUMARATE 20 MCG/2 ML NEBU INHALATION SCH (20:07)
[2019-05-31] MEDS ORDERED: QUEtiapine 100 MG TAB PO SCH (21:00)
[2019-06-01] MEDS: methylPREDNISolone SOD SUCCI 125 MG/2 ML VIAL IV SCH ×5 (00:38→23:24)
[2019-06-01] MEDS: HEPARIN SODIUM,PORCINE 5,000 UNIT/ML 1 ML VIAL SQ SCH ×4 (00:39→23:25)
[2019-06-01] MEDS: IPRATROPIUM-ALBUTEROL 3 ML NEB INHALATION SCH ×6 (03:16→23:51)
[2019-06-01] MEDS: FORMOTEROL FUMARATE 20 MCG/2 ML NEBU INHALATION SCH ×2 (07:10→20:11)
[2019-06-01] MEDS: BUDESONIDE 1 MG/2 ML NEBU INHALATION SCH ×2 (07:11→20:11)
[2019-06-01 07:21] LABS: Glucose,Whole Blood 220 mg/dL (75-99)
[2019-06-01] MEDS ORDERED: HYDROcodone/APAP 10-325MG 1 EACH TAB PO ONE ×2 (08:25→19:39)
[2019-06-01] MEDS: AZITHROMYCIN 500 MG TAB PO SCH (08:36)
[2019-06-01] MEDS: INSULIN ASPART (NovoLOG) 100 UNIT/ML VIAL SQ SCH ×3 (08:37→17:23)
[2019-06-01] MEDS: PARoxetine 10 MG TAB PO SCH (08:37)
[2019-06-01] MEDS: ALPRAZolam 0.25 MG TAB PO PRN ×2 (08:37→17:22)
[2019-06-01] MEDS: guaiFENesin-DM 100-10MG/5ML 10 ML CUP PO PRN ×2 (09:08→19:41)
[2019-06-01 12:02] LABS: Glucose,Whole Blood 99 mg/dL (75-99)
--- NOTE | 2019-06-01 13:42 | P.PN ---
Subjective Progress Note Date: 06/01/19 Principal diagnosis: COPD exacerbation Patient was seen and examined. No acute events overnight. Patient reports continued shortness of breath and wheezing, improved from yesterday. She complains of cough and unable to produce sputum. She denies any chest pain or palpitations. No nausea or vomiting. No fever or chills. Requesting pain medication for back pain. Objective - Vital Signs Vital signs: Vital Signs Temp 97.3 F L 06/01/19 12:55 Pulse 129 H 06/01/19 12:55 Resp 18 06/01/19 12:55 BP 117/72 06/01/19 12:55 Pulse Ox 90 L 06/01/19 12:55 Intake & Output 05/31/19 06/01/19 06/01/19 18:59 06:59 18:59 Intake Total 2520 Balance 2520 Weight 74.5 kg Intake: Oral 2520 Other: Voiding Method Toilet Toilet # Voids 1 1 - Exam General: [non toxic], [no distress], [appears at stated age] Derm: [warm], [dry] Head: [atraumatic], [normocephalic], [symmetric] Eyes: [EOMI], [no lid lag], [anicteric sclera] Mouth: [no lip lesion], [mucus membranes moist] Cardiovascular: [S1S2 reg], [tachycardic], [positive DP pulse bilateral], Lungs: [Diffuse wheezing bilateral, improved from yesterday], [no rhonchi, no rales] , [no accessory muscle use] Abdominal: [soft], [ nontender to palpation], [no guarding], [no appreciable organomegaly] Ext: [no gross muscle atrophy], [no edema], [no contractures] Neuro: [no focal neuro deficits] Psych: [Alert], [oriented], [appropriate affect] - Labs CBC & Chem 7: 05/31/19 05:53 05/31/19 05:53 Labs: Abnormal Lab Results - Last 24 Hours (Table) 05/31/19 06/01/19 Range/Units 16:41 07:19 POC Glucose (mg/dL) 241 H 220 H (75-99) mg/dL Microbiology - Last 24 Hours (Table) 05/30/19 18:48 Blood Culture - Preliminary Blood No Growth after 24 hours Assessment and Plan Assessment: Acute on chronic hypoxic respiratory failure due to COPD exacerbation Acute bronchitis Anxiety and bipolar Restless leg syndrome Patient symptoms are consistent with COPD exacerbation. She is currently saturating low 90s on 2 L nasal cannula. She does have home oxygen which she states that she lost. Her symptoms are likely also triggered by acute bronchitis. Chest x-ray showed evidence of COPD. She has been started on DuoNeb scheduled and as needed for shortness of breath and wheezing. Solu- Medrol has been started. Robitussin for cough. Formoterol and budesonide has been started by pulmonology. We will discontinue IVF. She will be given supplemental oxygen to maintain O2 saturation greater than 90%. Social work is onboard along with case management in order to get her home oxygen if necessary along with nebulizer machine. She is being treated empirically for pneumonia with Rocephin and azithromycin. Rocephin will be discontinued today as patient shows no signs of infection and her leukocytosis has resolved. Seroquel and Paxil has been restarted for history of bipolar disorder. Ropinirole will be restarted for her restless leg syndrome. Pulmonology is on board. Patient is pending clinical improvement. Likely DC in 1-2 days.
--- NOTE | 2019-06-01 15:11 | P.PN ---
Subjective Progress Note Date: 06/01/19 Principal diagnosis: Exacerbation of COPD On 06/01/2019 patient seen in follow-up on general medical floor, still quite bronchospastic and congested, patient started to bring up some yellow colored phlegm. She is afebrile, lung sounds are diminished, end expiratory wheezing, p atient has a congested cough, and frequent coughing spells. Patient continues on Zithromax, IV steroids, and nebulized bronchodilators not quite back to baseline. Objective - Vital Signs Vital signs: Vital Signs Temp 97.3 F L 06/01/19 12:55 Pulse 105 H 06/01/19 13:20 Resp 18 06/01/19 12:55 BP 117/72 06/01/19 12:55 Pulse Ox 95 06/01/19 13:20 Intake & Output 05/31/19 06/01/19 06/01/19 18:59 06:59 18:59 Intake Total 2520 540 Balance 2520 540 Weight 74.5 kg Intake: Oral 2520 540 Other: Voiding Method Toilet Toilet # Voids 1 1 3 - Exam GENERAL EXAM: Alert, pleasant, small framed 53-year-old white female, on supplemental oxygen, frequent coughing spells, and occasionally patient is able to bring up yellow colored thick phlegm comfortable in no apparent distress. HEAD: Normocephalic/atraumatic. EYES: Normal reaction of pupils, equal size. Conjunctiva pink, sclera white. NOSE: Clear with pink turbinates. THROAT: No erythema or exudates. NECK: No masses, no JVD, no thyroid enlargement, no adenopathy. CHEST: No chest wall deformity. Symmetrical expansion. LUNGS: Diminished air entry with end expiratory wheezes CVS: Regular rate and rhythm, normal S1 and S2, no gallops, no murmurs, no rubs ABDOMEN: Soft, nontender. No hepatosplenomegaly, normal bowel sounds, no guarding or rigidity. EXTREMITIES: No clubbing, no edema, no cyanosis, 2+ pulses and upper and lower extremities. MUSCULOSKELETAL: Muscle strength and tone normal. SPINE: No scoliosis or deformity SKIN: No rashes CENTRAL NERVOUS SYSTEM: Alert and oriented -3. No focal deficits, tone is normal in all 4 extremities. PSYCHIATRIC: Alert and oriented -3. Appropriate affect. Intact judgment and insight. - Labs CBC & Chem 7: 05/31/19 05:53 05/31/19 05:53 Labs: Abnormal Lab Results - Last 24 Hours (Table) 05/31/19 06/01/19 Range/Units 16:41 07:19 POC Glucose (mg/dL) 241 H 220 H (75-99) mg/dL Microbiology - Last 24 Hours (Table) 05/30/19 18:48 Blood Culture - Preliminary Blood No Growth after 24 hours Assessment and Plan Plan: Assessment: #1. Acute exacerbation of chronic obstructive pulmonary disease, complicated by purulent tracheobronchitis #2. Ongoing tobacco use and nicotine addiction #3. Suspect advanced COPD, probably stage III or IV #4. History of deafness #5. Hypertension #6. Prior history of pneumonia #7. History of tracheobronchitis #8. Migraine cephalgia #9. Restless leg syndrome #10. Insomnia #11. Chronic neck and back pain Plan: Continue current medical treatment, will try to collect sputum for culture, continue Zithromax, same dose IV steroids nebulized bronchodilators, Pulmicort and Perforomist, still quite bronchospastic, and congested, not quite back to baseline, will continue same medical treatment will follow I performed a history & physical examination of the patient and discussed their management with my nurse practitioner, Cristiane Saucedo. I reviewed the nurse practitioner's note and agree with the documented findings and plan of care. Lung sounds are positive for diffuse wheezes throughout the lung vela. The f indings and the impression was discussed with the patient. I attest to the documentation by the nurse practitioner. Time with Patient: Less than 30
[2019-06-01 17:13] LABS: Glucose,Whole Blood 153 mg/dL (75-99)
[2019-06-01 20:05] LABS: Glucose,Whole Blood 178 mg/dL (75-99)
[2019-06-01] MEDS: QUEtiapine 100 MG TAB PO SCH (20:47)
[2019-06-02] MEDS: ALPRAZolam 0.25 MG TAB PO PRN ×2 (00:48→08:58)
[2019-06-02] MEDS: IPRATROPIUM-ALBUTEROL 3 ML NEB INHALATION SCH ×3 (05:05→11:41)
[2019-06-02] MEDS: methylPREDNISolone SOD SUCCI 125 MG/2 ML VIAL IV SCH ×2 (05:27→12:10)
[2019-06-02 07:14] LABS: Glucose,Whole Blood 133 mg/dL (75-99)
[2019-06-02] MEDS: INSULIN ASPART (NovoLOG) 100 UNIT/ML VIAL SQ SCH ×2 (07:47→12:50)
[2019-06-02] MEDS: HEPARIN SODIUM,PORCINE 5,000 UNIT/ML 1 ML VIAL SQ SCH (07:48)
[2019-06-02] MEDS: AZITHROMYCIN 500 MG TAB PO SCH (07:48)
[2019-06-02] MEDS: PARoxetine 10 MG TAB PO SCH (07:48)
[2019-06-02] MEDS: BUDESONIDE 1 MG/2 ML NEBU INHALATION SCH (08:14)
[2019-06-02] MEDS: FORMOTEROL FUMARATE 20 MCG/2 ML NEBU INHALATION SCH (08:14)
[2019-06-02 09:36] LABS: African American GFR (CKD) >90 (>60 ml/min/1.73 sqM); Anion Gap 5 mmol/L; Blood Urea Nitrogen 20 mg/dL (7-17); Calcium 9.1 mg/dL (8.4-10.2); Carbon Dioxide 30 mmol/L (22-30); Chloride 104 mmol/L (98-107); Glucose 175 mg/dL (74-99); Non-African American GFR(CKD) >90 (>60 ml/min/1.73 sqM); Potassium 4.4 mmol/L (3.5-5.1); Sodium 139 mmol/L (137-145)
--- NOTE | 2019-06-02 10:38 | P.DS ---
Providers Date of admission: 05/30/19 20:29 Expected date of discharge: 06/02/19 Attending physician: Ignacio Fischer MD Consults: 05/31/19 07:26 Consult Physician Stat Consulting Provider: Lavell Montero Consult Reason/Comments: COPD Do you want consulting provider notified?: Yes Primary care physician: [facility] Course: The patient is a 53-year-old female with a PMH of COPD, chronic hypoxic respiratory failure (on 2L NC at home), anxiety, and bipolar disorder who presented to the ED with gradually worsening shortness of breath. The patient underwent an extensive evaluation in the emergency room. Her vitals were 153/89, pulse 102, respiratory rate 25, SpO2 96% on 3 L of nasal cannula. Chest x-ray was consistent with COPD, with laboratory evaluation showing WBC count of 11.7, hemoglobin 16.7, platelets 342, sodium 136, potassium 4.5, BUN 10, creatinine 0.5, glucose 136, and troponin less than 0.012. The patient was given IV Solu-Medrol and breathing treatments and was admitted for further management. Her shortness of breath was thought to be related to COPD exacerbation probably exacerbated by acute bronchitis. She was given supplemental oxygen to maintain O2 saturation greater than 92%. She was started on DuoNeb scheduled and as needed for shortness of breath or wheezing. Solu-Medrol, Robitussin, formoterol and budesonide oral started by pulmonology. Pulmonology followed the patient throughout her clinical course. Patient was initially treated for community acquired pneumonia with empiric antibiotics Rocephin and azithromycin. Rocephin was discontinued and azithromycin was continued for 3 days. Her home medication was resumed for anxiety, bipolar and restless leg syndrome. Patient was seen and examined. No acute events overnight. Patient reports significant improvement in her breathing. Patient states that she is back to baseline. She denies any chest pain, shortness breath or palpitations. No nausea or vomiting. No fever or chills. General: [non toxic], [no distress], [appears at stated age] Derm: [warm], [dry] Head: [atraumatic], [normocephalic], [symmetric] Eyes: [EOMI], [no lid lag], [anicteric sclera] Mouth: [no lip lesion], [mucus membranes moist] Cardiovascular: [S1S2 reg], [tachycardic], [positive DP pulse bilateral], Lungs: [End expiratory wheezing, improved from yesterday], [no rhonchi, no rales] , [no accessory muscle use] Abdominal: [soft], [ nontender to palpation], [no guarding], [no appreciable organomegaly] Ext: [no gross muscle atrophy], [no edema], [no contractures] Neuro: [no focal neuro deficits] Psych: [Alert], [oriented], [appropriate affect] Acute on chronic hypoxic respiratory failure due to COPD exacerbation Acute bronchitis Anxiety and bipolar Restless leg syndrome Patient symptoms are consistent with COPD exacerbation. She is currently saturating high 90s on 2 L nasal cannula. She does have home oxygen which she states that she lost. Her symptoms are likely also triggered by acute bronchitis. Chest x-ray showed evidence of COPD. She has been started on DuoNeb scheduled and as needed for shortness of breath and wheezing. Solu- Medrol has been started and will be transitioned to prednisone on discharge. Robitussin for cough. Formoterol and budesonide has been started by pulmonology. We will discontinue IVF. As discussed with RN, plans to do a 6 minute walk test to assess for oxygen requirements. Social work is onboard along with case management in order to get her home oxygen if necessary along with nebulizer machine. She is being treated empirically for pneumonia with Rocephin and azithromycin. Rocephin will be discontinued today as patient shows no signs of infection and her leukocytosis has resolved. She has completed 3 days of azithromycin. Seroquel and Paxil has been restarted for history of bipolar disorder. Ropinirole will be restarted for her restless leg syndrome. Pulmonology is on board. Patient is pending clinical improvement. Plans for 6 minute walk test. Possible DC today or tomorrow depending on pulmonology recommendations. Pertinent Studies: Chest x-ray Patient Condition at Discharge: Stable Plan - Discharge Summary Discharge Rx Participant: Yes New Discharge Prescriptions: New methylPREDNISolone Dose Pack [Medrol Dose Pack] 4 mg PO DIRECTED #21 package Continue QUEtiapine [SEROquel] 100 mg PO HS rOPINIRole HCL [Requip] 0.5 mg PO HS HYDROcodone/APAP 10-325MG [[place] 10-325] 1 tab PO TID PRN PRN Reason: Pain ALPRAZolam [Xanax] 1 mg PO TID PRN PRN Reason: Anxiety PARoxetine HCL [Paxil] 10 mg PO DAILY guaiFENesin-DM 100-10MG/5ML [Robitussin DM] 10 ml PO Q6H PRN PRN Reason: Cough Albuterol Inhaler [Ventolin Hfa Inhaler] 2 puff INHALATION RT-Q4H PRN #1 inhaler PRN Reason: Shortness Of Breath Albuterol Nebulized (Conc) [Ventolin Nebulized (Conc)] 2.5 mg INHALATION RT- QID PRN #120 neb PRN Reason: Shortness Of Breath Fluticasone Propion/Salmeterol [[place] 250-50 Inhub] 1 puff INHALATION RT-BID #1 device Discharge Medication List QUEtiapine [SEROquel] 100 mg PO HS 12/31/15 [History] rOPINIRole HCL [Requip] 0.5 mg PO HS 02/05/18 [History] ALPRAZolam [Xanax] 1 mg PO TID PRN 01/20/19 [History] HYDROcodone/APAP 10-325MG [[place] 10-325] 1 tab PO TID PRN 01/20/19 [History] PARoxetine HCL [Paxil] 10 mg PO DAILY 05/30/19 [History] guaiFENesin-DM 100-10MG/5ML [Robitussin DM] 10 ml PO Q6H PRN 05/30/19 [History] Albuterol Inhaler [Ventolin Hfa Inhaler] 2 puff INHALATION RT-Q4H PRN #1 inhaler 06/02/19 [Rx] Albuterol Nebulized (Conc) [Ventolin Nebulized (Conc)] 2.5 mg INHALATION RT-QID PRN #120 neb 06/02/19 [Rx] Fluticasone Propion/Salmeterol [[place] 250-50 Inhub] 1 puff INHALATION RT-BID #1 device 06/02/19 [Rx] methylPREDNISolone Dose Pack [Medrol Dose Pack] 4 mg PO DIRECTED #21 package 06/02/19 [Rx] Follow up Appointment(s)/Referral(s): [facility], [NON-STAFF] - Natasha Figueroa MD [Primary Care Provider] - 1-2 days Liban Graham DO [Doctor of Osteopathic Medicine] - 1 Week Activity/Diet/Wound Care/Special Instructions: Follow-up with PCP within 2 days of discharge. Follow up with pulmonology within 1 week of discharge. Take all medications as advised. Please quit smoking. Discharge Disposition: HOME SELF-CARE
[2019-06-02 11:42] LABS: Glucose,Whole Blood 218 mg/dL (75-99)
--- NOTE | 2019-06-02 12:02 | P.PN ---
Subjective Progress Note Date: 06/02/19 Principal diagnosis: Exacerbation of COPD On 06/01/2019 patient seen in follow-up on general medical floor, still quite bronchospastic and congested, patient started to bring up some yellow colored phlegm. She is afebrile, lung sounds are diminished, end expiratory wheezing, p atient has a congested cough, and frequent coughing spells. Patient continues on Zithromax, IV steroids, and nebulized bronchodilators not quite back to baseline. On 06/02/2019 patient seen in follow-up. Patient is sounding much better on today's exam, with diminished breath sounds, minimal wheezing, no rhonchi. Patient passed home oxygen assessment, and maintained O2 saturations in the 93- 94 range even with ambulation, does get a bit tachycardiac with activity, but overall has significantly improved since admission. Today's labs have been reviewed, electrolytes are within normal limits, B1 is 20 creatinine is 0.53. Vital signs are stable. Doing better, patient is on Zithromax, IV steroids, nebulized bronchodilators, responded well to inpatient treatment. Objective - Vital Signs Vital signs: Vital Signs Temp 98.0 F 06/02/19 05:52 Pulse 100 06/02/19 11:59 Resp 20 06/02/19 05:52 BP 113/71 06/02/19 05:52 Pulse Ox 94 L 06/02/19 11:04 Intake & Output 06/01/19 06/02/19 06/02/19 18:59 06:59 18:59 Intake Total 540 1240 Balance 540 1240 Weight 74.5 kg Intake: Oral 540 1240 Other: Voiding Method Toilet Toilet # Voids 3 2 - Exam GENERAL EXAM: Alert, pleasant, small framed 53-year-old white female, on room air HEAD: Normocephalic/atraumatic. EYES: Normal reaction of pupils, equal size. Conjunctiva pink, sclera white. NOSE: Clear with pink turbinates. THROAT: No erythema or exudates. NECK: No masses, no JVD, no thyroid enlargement, no adenopathy. CHEST: No chest wall deformity. Symmetrical expansion. LUNGS: Diminished air entry with no wheezing CVS: Regular rate and rhythm, normal S1 and S2, no gallops, no murmurs, no rubs ABDOMEN: Soft, nontender. No hepatosplenomegaly, normal bowel sounds, no guarding or rigidity. EXTREMITIES: No clubbing, no edema, no cyanosis, 2+ pulses and upper and lower extremities. MUSCULOSKELETAL: Muscle strength and tone normal. SPINE: No scoliosis or deformity SKIN: No rashes CENTRAL NERVOUS SYSTEM: Alert and oriented -3. No focal deficits, tone is normal in all 4 extremities. PSYCHIATRIC: Alert and oriented -3. Appropriate affect. Intact judgment and insight. - Labs CBC & Chem 7: 05/31/19 05:53 06/02/19 08:37 Labs: Abnormal Lab Results - Last 24 Hours (Table) 06/01/19 06/01/19 06/02/19 Range/Units 17:05 19:57 07:11 BUN (7-17) mg/dL Glucose (74-99) mg/dL POC Glucose (mg/dL) 153 H 178 H 133 H (75-99) mg/dL 06/02/19 06/02/19 Range/Units 08:37 11:41 BUN 20 H (7-17) mg/dL Glucose 175 H (74-99) mg/dL POC Glucose (mg/dL) 218 H (75-99) mg/dL Microbiology - Last 24 Hours (Table) 05/30/19 18:48 Blood Culture - Preliminary Blood No Growth after 48 hours Assessment and Plan Plan: Assessment: #1. Acute exacerbation of chronic obstructive pulmonary disease, complicated by purulent tracheobronchitis #2. Ongoing tobacco use and nicotine addiction #3. Suspect advanced COPD, probably stage III or IV #4. History of deafness #5. Hypertension #6. Prior history of pneumonia #7. History of tracheobronchitis #8. Migraine cephalgia #9. Restless leg syndrome #10. Insomnia #11. Chronic neck and back pain Plan: patient has made significant improvement in the last 24 hours, much less bronchospastic, dyspneic and congested, on room air, she passed home oxygen evaluation, vital signs are stable, increase activity as tolerated, patient is cleared for discharge from pulmonary perspective she can finish outpatient course of Zithromax, prednisone taper, and she can resume her breathing treatments. She should have follow-up in the office with Dr. Montero. I performed a history & physical examination of the patient and discussed their management with my nurse practitioner, Cristiane Saucedo. I reviewed the nurse practitioner's note and agree with the documented findings and plan of care. Lung sounds are positive for diffuse wheezes throughout the lung vela. The findings and the impression was discussed with the patient. I attest to the documentation by the nurse practitioner. Time with Patient: Less than 30
[2019-06-02 13:22] VITALS: BP 133/77; PULSE 118; RESP 19; TEMP 98.2
== END 2019-06-02 15:06 | disposition home health service (06) | DRG 190 ==
LOC: EC 18:10 → 3SCARD 20:29 → 6NMEDSUR 05-31 21:31
PROVIDERS: ADMIT Internal Medicine; ATTEND Internal Medicine
PROC: 5A09457 Assistance with Respiratory Ventilation, 24-96 Consecutive Hours, Continuous Positive Airway Pressure (ICD-10-PCS; principal; 2019-05-31)
DX: J44.1 Chronic obstructive pulmonary disease with (acute) exacerbation (principal); J96.22 Acute and chronic respiratory failure with hypercapnia; J96.21 Acute and chronic respiratory failure with hypoxia; G43.909 Migraine, unspecified, not intractable, without status migrainosus; G25.81 Restless legs syndrome; G47.00 Insomnia, unspecified; D75.1 Secondary polycythemia; I10 Essential (primary) hypertension; H91.92 Unspecified hearing loss, left ear; F41.0 Panic disorder [episodic paroxysmal anxiety]; F90.9 Attention-deficit hyperactivity disorder, unspecified type; F31.9 Bipolar disorder, unspecified; F17.210 Nicotine dependence, cigarettes, uncomplicated; G89.29 Other chronic pain; M54.2 Cervicalgia; J44.0 Chronic obstructive pulmonary disease with (acute) lower respiratory infection; J20.9 Acute bronchitis, unspecified; Z98.890 Other specified postprocedural states; Z80.9 Family history of malignant neoplasm, unspecified; Z79.51 Long term (current) use of inhaled steroids; Z79.899 Other long term (current) drug therapy; Z87.01 Personal history of pneumonia (recurrent)
CPT/HCPCS: 36415; 36600; 71046; 80048; 80053; 82805; 83605; 83735; 84484; 85025; 85027; 85610; 85730; 87040; 93005; 94640; 94660; 94760; 96365; 96375; 99291

== ENCOUNTER 2019-08-14 19:19 | Inpatient (IN) | payer OTHER ==
[2019-08-14] MEDS ORDERED: LORazepam 2 MG/ML INJ IV PRN (19:26)
[2019-08-14] MEDS ORDERED: IPRATROPIUM-ALBUTEROL 3 ML NEB INHALATION STA (19:26)
--- NOTE | 2019-08-14 19:31 | ED ---
General Adult HPI - General Chief complaint: Cardiac Arrest/CPR Stated complaint: cardiac arrest Source: EMS, RN notes reviewed, old records reviewed Mode of arrival: EMS Limitations: altered mental status, physical limitation - History of Present Illness Initial comments: Patient is an unresponsive 54 female presenting to the emergency Department cardiac arrest. Patient reportedly had been doing fine and was seen around 5 minutes earlier than being found unresponsive. Patient was found in [facility]. EMS started CPR and intubated patient and gave 2 rounds of epinephrine prior to return of circulation. Patient is still unresponsive at this time and unable to provide any additional information. - Related Data Home Medications Medication Instructions Recorded Confirmed QUEtiapine [SEROquel] 100 mg PO HS 12/31/15 05/30/19 rOPINIRole HCL [Requip] 0.5 mg PO HS 02/05/18 05/30/19 ALPRAZolam [Xanax] 1 mg PO TID PRN 01/20/19 05/30/19 HYDROcodone/APAP 10-325MG [[place] 1 tab PO TID PRN 01/20/19 05/30/19 10-325] PARoxetine HCL [Paxil] 10 mg PO DAILY 05/30/19 05/30/19 guaiFENesin-DM 100-10MG/5ML 10 ml PO Q6H PRN 05/30/19 05/30/19 [Robitussin DM] Previous Rx's Medication Instructions Recorded Albuterol Inhaler (Mhu) [Ventolin 2 puff INHALATION RT-Q4H PRN #1 06/02/19 Hfa Inhaler (Mhu)] inhaler Albuterol Nebulized (Conc) 2.5 mg INHALATION RT-QID PRN #120 06/02/19 [Ventolin Nebulized (Conc)] neb Fluticasone Propion/Salmeterol 1 puff INHALATION RT-BID #1 device 06/02/19 [Wixela 250-50 Inhub] methylPREDNISolone Dose Pack 4 mg PO DIRECTED #21 package 06/02/19 [Medrol Dose Pack] Allergies Allergy/AdvReac Type Severity Reaction Status Date / Time No Known Allergies Allergy Verified 08/14/19 21:35 Review of Systems ROS Statement: Those systems with pertinent positive or pertinent negative responses have been documented in the HPI. ROS Other: All systems not noted in ROS Statement are negative. Limitations: ROS unobtainable due to patients medical condition Past Medical History Past Medical History: Asthma, COPD, Hearing Disorder / Deafness, Hypertension, Pneumonia Additional Past Medical History / Comment(s): Tracheobronchitis, deaf L ear and [place] in R ear, chronic cervical/back pain, RLS, migraines, insomnia. History of Any Multi-Drug Resistant Organisms: None Reported Past Surgical History: Ear Surgery Additional Past Surgical History / Comment(s): Multiple bilateral ear tubes as child; has had L ear reconstruction, pain clinic procedures. Past Anesthesia/Blood Transfusion Reactions: No Reported Reaction Additional Past Anesthesia/Blood Transfusion Reaction / Comment(s): Pt has no problems with anesthetics and has never recieved blood. Past Psychological History: ADD/ADHD, Bipolar, Depression, Panic Disorder Smoking Status: Current every day smoker Past Alcohol Use History: Occasional Past Drug Use History: Marijuana - Past Family History Mother Family Medical History: Cancer Additional Family Medical History / Comment(s): Mother had "a few kinds of cancers" and from cancer at age 60 yrs. Father History Unknown: Yes Family Medical History: Unable to Obtain Additional Family Medical History / Comment(s): Pt does not know her father. General Exam Limitations: no limitations General appearance: obtunded Head exam: Present: atraumatic, normocephalic Eye exam: Present: other (Pupils dilated and sluggish) ENT exam: Present: normal oropharynx Neck exam: Present: normal inspection. Absent: meningismus Respiratory exam: Present: wheezes, decreased breath sounds Cardiovascular Exam: Present: tachycardia Expanded Peripheral pulses: 2+: Radial (R), Radial (L), Dorsalis Pedis (R), Dorsalis Pedis (L) GI/Abdominal exam: Present: soft. Absent: distended, tenderness, pulsatile mass Extremities exam: Present: normal inspection Expanded Neurological exam: Present: other (Unresponsive.) Eye Response: (1) no response Motor Response: (1) no motor response Verbal Response: (1) no verbal response Psychiatric exam: Present: other (Nonverbal) Skin exam: Present: normal color Course Vital Signs 08/14/19 08/14/19 08/14/19 19:20 19:31 19:45 Temperature 98.6 F Pulse Rate 117 H 118 H 122 H Respiratory 16 16 20 Rate Blood Pressure 150/107 167/105 O2 Sat by Pulse 99 99 Oximetry 08/14/19 08/14/19 08/14/19 19:57 20:16 20:20 Temperature Pulse Rate 121 H 125 H 118 H Respiratory 20 16 20 Rate Blood Pressure 83/48 O2 Sat by Pulse 99 Oximetry 08/14/19 08/14/19 08/14/19 20:26 20:31 20:35 Temperature Pulse Rate 116 H 128 H 117 H Respiratory 16 23 15 Rate Blood Pressure 113/78 105/87 O2 Sat by Pulse 99 99 Oximetry 08/14/19 20:59 Temperature Pulse Rate 118 H Respiratory 17 Rate Blood Pressure 101/82 O2 Sat by Pulse 99 Oximetry - Reevaluation(s) Reevaluation #1: 08/14/19 19:32 Update from EMS from family states the patient has not been feeling well for the past couple of days and not taking her medications her breathing treatments. 08/14/19 21:18 Case was discussed with Dr. Elliott, who will admit. 08/14/19 21:35 Case was also discussed in detail with Dr. Brannon, who will consult EKG Findings - EKG Comments: EKG Findings:: Sinus tachycardia 122. OK 150. QRS 84. QT 316. QTC 450. Normal axis. Normal QRS. No acute ST change. Procedures - ABG Interpretation Ph: 7.14 PCO2: 74 PO2: 400 Bicarbonate: 28 Interpretation: respiratory acidosis Medical Decision Making - Medical Decision Making Patient reevaluated. ET tube advanced. Vent changes made. ABG interpreted. Dr. Elliott has been paged for admission covering for hospital call. Insurance Administrator will also be paged. - Lab Data Result diagrams: 08/14/19 19:20 08/14/19 19:20 Lab Results 08/14/19 08/14/19 08/14/19 Range/Units 19:20 19:20 19:20 WBC 7.5 (3.8-10.6) k/uL RBC 5.32 (3.80-5.40) m/uL Hgb 16.1 H (11.4-16.0) gm/dL Hct 52.8 H (34.0-46.0) % MCV 99.4 (80.0-100.0) fL MCH 30.3 (25.0-35.0) pg MCHC 30.5 L (31.0-37.0) g/dL RDW 14.1 (11.5-15.5) % Plt Count 201 (150-450) k/uL Neutrophils % 43 % Lymphocytes % 47 % Monocytes % 3 % Eosinophils % 4 % Basophils % 1 % Neutrophils # 3.3 (1.3-7.7) k/uL Lymphocytes # 3.5 (1.0-4.8) k/uL Monocytes # 0.2 (0-1.0) k/uL Eosinophils # 0.3 (0-0.7) k/uL Basophils # 0.1 (0-0.2) k/uL Hypochromasia Slight PT 9.7 (9.0-12.0) sec INR 0.9 (<1.2) APTT 22.7 (22.0-30.0) sec Sample Site ABG pH (7.35-7.45) ABG pCO2 (35-45) mmHg ABG pO2 (83-108) mmHg ABG HCO3 (21-25) mmol/L ABG Total CO2 (19-24) mmol/L ABG O2 Saturation (94-97) % ABG Base Excess mmol/L Rick Test FiO2 % Sodium 139 (137-145) mmol/L Potassium 4.8 (3.5-5.1) mmol/L Chloride 106 (98-107) mmol/L Carbon Dioxide 22 (22-30) mmol/L Anion Gap 11 mmol/L BUN 7 (7-17) mg/dL Creatinine 0.81 (0.52-1.04) mg/dL Est GFR (CKD-EPI)AfAm >90 (>60 ml/min/1.73 sqM) Est GFR (CKD-EPI)NonAf 84 (>60 ml/min/1.73 sqM) Glucose 253 H (74-99) mg/dL POC Glucose (mg/dL) (75-99) mg/dL POC Glu [place] [employer] ID Plasma Lactic Acid Sedrick (0.7-2.0) mmol/L Calcium 8.6 (8.4-10.2) mg/dL Magnesium 2.3 (1.6-2.3) mg/dL Total Bilirubin 0.3 (0.2-1.3) mg/dL AST 238 H (14-36) U/L ALT 161 H (4-34) U/L Alkaline Phosphatase 81 (38-126) U/L Lactate Dehydrogenase 1418 H (313-618) U/L Troponin I (0.000-0.034) ng/mL C-Reactive Protein <5.0 (<10.0) mg/L Total Protein 5.6 L (6.3-8.2) g/dL Albumin 3.4 L (3.5-5.0) g/dL Urine Color Urine Appearance (Clear) Urine pH (5.0-8.0) Ur Specific Percy (1.001-1.035) Urine Protein (Negative) Urine Glucose (UA) (Negative) Urine Ketones (Negative) Urine Blood (Negative) Urine Nitrite (Negative) Urine Bilirubin (Negative) Urine Urobilinogen (<2.0) mg/dL Ur Leukocyte Esterase (Negative) Urine RBC (0-5) /hpf Urine WBC (0-5) /hpf Ur Squamous Epith Cells (0-4) /hpf Amorphous Sediment (None) /hpf Urine Bacteria (None) /hpf Hyaline Casts (0-2) /lpf Urine Mucus (None) /hpf Salicylates <1.0 mg/dL Urine Opiates Screen (NotDetected) Ur Oxycodone Screen (NotDetected) Urine Methadone Screen (NotDetected) Ur Propoxyphene Screen (NotDetected) Acetaminophen <10.0 ug/mL Ur Barbiturates Screen (NotDetected) U Tricyclic Antidepress (NotDetected) Ur Phencyclidine Scrn (NotDetected) Ur Amphetamines Screen (NotDetected) U Methamphetamines Scrn (NotDetected) U Benzodiazepines Scrn (NotDetected) Urine Cocaine Screen (NotDetected) U Marijuana (THC) Screen (NotDetected) Serum Alcohol <10 mg/dL 08/14/19 08/14/19 08/14/19 Range/Units 19:20 19:20 19:22 WBC (3.8-10.6) k/uL RBC (3.80-5.40) m/uL Hgb (11.4-16.0) gm/dL Hct (34.0-46.0) % MCV (80.0-100.0) fL MCH (25.0-35.0) pg MCHC (31.0-37.0) g/dL RDW (11.5-15.5) % Plt Count (150-450) k/uL Neutrophils % % Lymphocytes % % Monocytes % % Eosinophils % % Basophils % % Neutrophils # (1.3-7.7) k/uL Lymphocytes # (1.0-4.8) k/uL Monocytes # (0-1.0) k/uL Eosinophils # (0-0.7) k/uL Basophils # (0-0.2) k/uL Hypochromasia PT (9.0-12.0) sec INR (<1.2) APTT (22.0-30.0) sec Sample Site ABG pH (7.35-7.45) ABG pCO2 (35-45) mmHg ABG pO2 (83-108) mmHg ABG HCO3 (21-25) mmol/L ABG Total CO2 (19-24) mmol/L ABG O2 Saturation (94-97) % ABG Base Excess mmol/L Rick Test FiO2 % Sodium (137-145) mmol/L Potassium (3.5-5.1) mmol/L Chloride (98-107) mmol/L Carbon Dioxide (22-30) mmol/L Anion Gap mmol/L BUN (7-17) mg/dL Creatinine (0.52-1.04) mg/dL Est GFR (CKD-EPI)AfAm (>60 ml/min/1.73 sqM) Est GFR (CKD-EPI)NonAf (>60 ml/min/1.73 sqM) Glucose (74-99) mg/dL POC Glucose (mg/dL) 219 H (75-99) mg/dL POC Glu [place] [employer] Ines Amezcua Plasma Lactic Acid Sedrick 8.9 H* (0.7-2.0) mmol/L Calcium (8.4-10.2) mg/dL Magnesium (1.6-2.3) mg/dL Total Bilirubin (0.2-1.3) mg/dL AST (14-36) U/L ALT (4-34) U/L Alkaline Phosphatase (38-126) U/L Lactate Dehydrogenase (313-618) U/L Troponin I <0.012 (0.000-0.034) ng/mL C-Reactive Protein (<10.0) mg/L Total Protein (6.3-8.2) g/dL Albumin (3.5-5.0) g/dL Urine Color Urine Appearance (Clear) Urine pH (5.0-8.0) Ur Specific Percy (1.001-1.035) Urine Protein (Negative) Urine Glucose (UA) (Negative) Urine Ketones (Negative) Urine Blood (Negative) Urine Nitrite (Negative) Urine Bilirubin (Negative) Urine Urobilinogen (<2.0) mg/dL Ur Leukocyte Esterase (Negative) Urine RBC (0-5) /hpf Urine WBC (0-5) /hpf Ur Squamous Epith Cells (0-4) /hpf Amorphous Sediment (None) /hpf Urine Bacteria (None) /hpf Hyaline Casts (0-2) /lpf Urine Mucus (None) /hpf Salicylates mg/dL Urine Opiates Screen (NotDetected) Ur Oxycodone Screen (NotDetected) Urine Methadone Screen (NotDetected) Ur Propoxyphene Screen (NotDetected) Acetaminophen ug/mL Ur Barbiturates Screen (NotDetected) U Tricyclic Antidepress (NotDetected) Ur Phencyclidine Scrn (NotDetected) Ur Amphetamines Screen (NotDetected) U Methamphetamines Scrn (NotDetected) U Benzodiazepines Scrn (NotDetected) Urine Cocaine Screen (NotDetected) U Marijuana (THC) Screen (NotDetected) Serum Alcohol mg/dL 08/14/19 08/14/19 Range/Units 19:51 20:57 WBC (3.8-10.6) k/uL RBC (3.80-5.40) m/uL Hgb (11.4-16.0) gm/dL Hct (34.0-46.0) % MCV (80.0-100.0) fL MCH (25.0-35.0) pg MCHC (31.0-37.0) g/dL RDW (11.5-15.5) % Plt Count (150-450) k/uL Neutrophils % % Lymphocytes % % Monocytes % % Eosinophils % % Basophils % % Neutrophils # (1.3-7.7) k/uL Lymphocytes # (1.0-4.8) k/uL Monocytes # (0-1.0) k/uL Eosinophils # (0-0.7) k/uL Basophils # (0-0.2) k/uL Hypochromasia PT (9.0-12.0) sec INR (<1.2) APTT (22.0-30.0) sec Sample Site l brac ABG pH 7.14 L* (7.35-7.45) ABG pCO2 74 H* (35-45) mmHg ABG pO2 >400 H (83-108) mmHg ABG HCO3 25 (21-25) mmol/L ABG Total CO2 28 H (19-24) mmol/L ABG O2 Saturation 99.6 H (94-97) % ABG Base Excess -3.7 mmol/L Rick Test Yes FiO2 100 % Sodium (137-145) mmol/L Potassium (3.5-5.1) mmol/L Chloride (98-107) mmol/L Carbon Dioxide (22-30) mmol/L Anion Gap mmol/L BUN (7-17) mg/dL Creatinine (0.52-1.04) mg/dL Est GFR (CKD-EPI)AfAm (>60 ml/min/1.73 sqM) Est GFR (CKD-EPI)NonAf (>60 ml/min/1.73 sqM) Glucose (74-99) mg/dL POC Glucose (mg/dL) (75-99) mg/dL POC Glu [place] [employer] ID Plasma Lactic Acid Sedrick (0.7-2.0) mmol/L Calcium (8.4-10.2) mg/dL Magnesium (1.6-2.3) mg/dL Total Bilirubin (0.2-1.3) mg/dL AST (14-36) U/L ALT (4-34) U/L Alkaline Phosphatase (38-126) U/L Lactate Dehydrogenase (313-618) U/L Troponin I (0.000-0.034) ng/mL C-Reactive Protein (<10.0) mg/L Total Protein (6.3-8.2) g/dL Albumin (3.5-5.0) g/dL Urine Color Yellow Urine Appearance Cloudy H (Clear) Urine pH 6.5 (5.0-8.0) Ur Specific Percy 1.019 (1.001-1.035) Urine Protein 1+ H (Negative) Urine Glucose (UA) Negative (Negative) Urine Ketones Negative (Negative) Urine Blood Trace H (Negative) Urine Nitrite Negative (Negative) Urine Bilirubin Negative (Negative) Urine Urobilinogen <2.0 (<2.0) mg/dL Ur Leukocyte Esterase Negative (Negative) Urine RBC 1 (0-5) /hpf Urine WBC 5 (0-5) /hpf Ur Squamous Epith Cells <1 (0-4) /hpf Amorphous Sediment Rare H (None) /hpf Urine Bacteria Rare H (None) /hpf Hyaline Casts 1 (0-2) /lpf Urine Mucus Moderate H (None) /hpf Salicylates mg/dL Urine Opiates Screen Not Detected (NotDetected) Ur Oxycodone Screen Not Detected (NotDetected) Urine Methadone Screen Not Detected (NotDetected) Ur Propoxyphene Screen Not Detected (NotDetected) Acetaminophen ug/mL Ur Barbiturates Screen Not Detected (NotDetected) U Tricyclic Antidepress Not Detected (NotDetected) Ur Phencyclidine Scrn Not Detected (NotDetected) Ur Amphetamines Screen Detected H (NotDetected) U Methamphetamines Scrn Not Detected (NotDetected) U Benzodiazepines Scrn Not Detected (NotDetected) Urine Cocaine Screen Detected H (NotDetected) U Marijuana (THC) Screen Detected H (NotDetected) Serum Alcohol mg/dL - Radiology Data Radiology results: report reviewed (Computed tomography scan of the brain shows normal appearance however concern for sinusitis.), image reviewed (Chest x-ray shows endotracheal tube appears high. Hyperinflation.) Critical Care Time Critical Care Time: Yes Total Critical Care Time: 32 Disposition Clinical Impression: Cardiac arrest, Acute respiratory failure Disposition: ADMITTED IP TO THIS [facility] Condition: Critical Is patient prescribed a controlled substance at d/c from ED?: No Decision Time: 21:09
[2019-08-14 19:33] LABS: Basophils # (A) 0.1 k/uL (0-0.2); Basophils % (A) 1 %; Eosinophils # (A) 0.3 k/uL (0-0.7); Eosinophils % (A) 4 %; HCT 52.8 % (34.0-46.0); HGB 16.1 gm/dL (11.4-16.0); Hypochromasia Slight; Lymphocytes # (A) 3.5 k/uL (1.0-4.8); Lymphocytes % (A) 47 %; MCH 30.3 pg (25.0-35.0); MCHC 30.5 g/dL (31.0-37.0); MCV 99.4 fL (80.0-100.0); Mean Platelet Volume 7.8; Monocytes # (A) 0.2 k/uL (0-1.0); Monocytes % (A) 3 %; Neutrophils # (A) 3.3 k/uL (1.3-7.7); Neutrophils % (A) 43 %; Platelet Count 201 k/uL (150-450); RBC 5.32 m/uL (3.80-5.40); RDW 14.1 % (11.5-15.5); WBC 7.5 k/uL (3.8-10.6)
[2019-08-14 19:33] LABS: Glucose,Whole Blood 219 mg/dL (75-99)
[2019-08-14] MEDS: PROPOFOL 1,000 MG in EMPTY BAG 1 BAG IV SCH (19:33)
[2019-08-14 19:45] LABS: INR 0.9 (<1.2); Partial Thromboplastin Time 22.7 sec (22.0-30.0); Prothrombin Time 9.7 sec (9.0-12.0)
[2019-08-14 19:50] LABS: AST 238 U/L (14-36); Acetaminophen <10.0 ug/mL; African American GFR (CKD) >90 (>60 ml/min/1.73 sqM); Albumin 3.4 g/dL (3.5-5.0); Alcohol <10 mg/dL; Alkaline Phosphatase 81 U/L (38-126); Anion Gap 11 mmol/L; Blood Urea Nitrogen 7 mg/dL (7-17); C Reactive Protein <5.0 mg/L (<10.0); Calcium 8.6 mg/dL (8.4-10.2); Carbon Dioxide 22 mmol/L (22-30); Chloride 106 mmol/L (98-107); Glucose 253 mg/dL (74-99); LDH 1418 U/L (313-618); Magnesium 2.3 mg/dL (1.6-2.3); Non-African American GFR(CKD) 84 (>60 ml/min/1.73 sqM); Potassium 4.8 mmol/L (3.5-5.1); Salicylate <1.0 mg/dL; Sodium 139 mmol/L (137-145); Total Bilirubin 0.3 mg/dL (0.2-1.3); Total Protein 5.6 g/dL (6.3-8.2)
[2019-08-14 19:54] LABS: ALT 161 U/L (4-34)
[2019-08-14 20:06] LABS: Amorphous Sediment,Urine Rare /hpf; Appearance,Urine Cloudy (Clear); Bacteria,Urine Rare /hpf; Bilirubin,Urine Negative (Negative); Blood,Urine Trace (Negative); Color,Urine Yellow; Glucose,Urine (UA) Negative (Negative); Hyaline Casts,Urine 1 /lpf (0-2); Ketones,Urine Negative (Negative); Leukocyte Esterase,Urine Negative (Negative); Mucus,Urine Moderate /hpf; Nitrite,Urine Negative (Negative); PH, Urine 6.5 (5.0-8.0); Protein,Urine 1+ (Negative); RBC,Urine 1 /hpf (0-5); Specific Gravity,Urine 1.019 (1.001-1.035); Squamous Epithelial Cell,Urine <1 /hpf (0-4); Urobilinogen,Urine <2.0 mg/dL (<2.0); WBC,Urine 5 /hpf (0-5)
[2019-08-14 20:18] LABS: Amphetamine Screen,Urine Detected (NotDetected); Barbiturate Screen,Urine Not Detected (NotDetected); Benzodiazepines Screen,Urine Not Detected (NotDetected); Cocaine Screen,Urine Detected (NotDetected); Methadone Screen, Urine Not Detected (NotDetected); Opiate Screen,Urine Not Detected (NotDetected); Oxycodone Screen, Urine Not Detected (NotDetected); Phencyclidine Screen,Urine Not Detected (NotDetected); Tricyclic Antidepressant,Urine Not Detected (NotDetected); Urn Cannabinoid Scrn Detected (NotDetected)
[2019-08-14] MEDS ORDERED: ALBUTEROL NEBULIZED 2.5 MG/3 ML INHALATION STA (20:19)
--- NOTE | 2019-08-14 20:40 | CT ---
EXAMINATION TYPE: CT brain wo con DATE OF EXAM: 08/14/2019 COMPARISON: None INDICATION: Unresponsive DLP: 1129.4 mGycm, Automated exposure control for dose reduction was used. CONTRAST: None CT of the brain is performed utilizing 3 mm thick sections through the posterior fossa and 3 mm thick sections through the remaining calvarium. Study is performed within 24 hours of arrival to the hosp [facility]. No abnormal hyperdensity is present to suggest an acute intracranial hemorrhage. No mass lesion is evident. No acute infarcts are evident. Ventricles and sulci are appropriate for the patient age. Multiple air-fluid levels are within paranasal sinuses including the sphenoid sinuses posterior left ethmoid air cells and left maxillary sinus. Frontal sinuses are aplastic. Clinical correlation recomm ended for acute sinusitis. No acute fractures are evident. Mastoid air cells are underpneumatized. IMPRESSIONS: 1. CT brain appears normal. 2. Clinical correlation recommended for pansinusitis
--- NOTE | 2019-08-14 20:45 | XR ---
EXAMINATION TYPE: XR chest 1V portable DATE OF EXAM: 08/14/2019 COMPARISON: 05/30/2019 INDICATION: Suspected Covid 19 pneumonia. Cardiac arrest. TECHNIQUE: Single frontal view of the chest is obtained. FINDINGS: The heart size is normal. The pulmonary vasculature is normal. There is hyperinflation. Minimal fluid is not excluded. Endotracheal tube is been placed with the tip 7 cm above the larisa. Nasogastric tube transverses the thorax with the tip in the abdomen. EKG leads overlie the chest. IMPRESSION: 1. Placement of an endotracheal tube 7 cm above the larisa. Nasogastric tube is in position. 2. Hyperinflation. 3. Very minimal effusion cannot be excluded.
[2019-08-14 21:01] LABS: ABG Base Excess -3.7 mmol/L; ABG HCO3 25 mmol/L (21-25); ABG Oxygen Saturation 99.6 % (94-97); ABG PO2 >400 mmHg (83-108); ABG TCO2 28 mmol/L (19-24); Allen Test Performed? Yes
[2019-08-14 21:02] LABS: ABG PCO2 74 mmHg (35-45); ABG PH 7.14 (7.35-7.45)
[2019-08-14] MEDS ORDERED: methylPREDNISolone SOD SUCCI 125 MG/2 ML VIAL IV STA (21:09)
[2019-08-14] MEDS ORDERED: IPRATROPIUM-ALBUTEROL 3 ML NEB INHALATION PRN (21:09)
[2019-08-14] MEDS ORDERED: NALOXONE 0.4 MG/ML 1 ML VIAL IV PRN (21:11)
[2019-08-14] MEDS: LORazepam 2 MG/ML INJ IV PRN (21:22)
[2019-08-14] MEDS: SODIUM CHLORIDE 0.9% 1,000 ML IV SCH (21:26)
[2019-08-14] MEDS: CHLORHEXIDINE GLUCONATE 15 ML CUP MUCOUS MEM SCH (21:28)
[2019-08-14 22:19] LABS: Glucose,Whole Blood 193 mg/dL (75-99)
[2019-08-14] MEDS ORDERED: SODIUM CHLORIDE 0.9% 1,000 ML IV ONE (22:54)
[2019-08-14] MEDS: ENOXAPARIN 40 MG/0.4 ML SYRINGE SQ SCH (22:59)
[2019-08-15] MEDS: INSULIN ASPART (NovoLOG) 100 UNIT/ML VIAL SQ SCH ×4 (00:01→18:54)
[2019-08-15 00:02] LABS: Glucose,Whole Blood 157 mg/dL (75-99)
[2019-08-15] MEDS: methylPREDNISolone SOD SUCCI 125 MG/2 ML VIAL IV SCH ×4 (00:04→18:57)
[2019-08-15] MEDS: LORazepam 2 MG/ML INJ IV PRN (01:58)
[2019-08-15 02:23] LABS: Ferritin 1395.2 ng/mL (10.0-291.0)
[2019-08-15 04:36] LABS: ALT 181 U/L (4-34); AST 216 U/L (14-36); African American GFR (CKD) >90 (>60 ml/min/1.73 sqM); Albumin 3.2 g/dL (3.5-5.0); Alkaline Phosphatase 66 U/L (38-126); Anion Gap 6 mmol/L; Blood Urea Nitrogen 13 mg/dL (7-17); Calcium 7.9 mg/dL (8.4-10.2); Carbon Dioxide 21 mmol/L (22-30); Chloride 113 mmol/L (98-107); Glucose 172 mg/dL (74-99); Magnesium 1.6 mg/dL (1.6-2.3); Non-African American GFR(CKD) >90 (>60 ml/min/1.73 sqM); Potassium 3.8 mmol/L (3.5-5.1); Sodium 140 mmol/L (137-145); Total Bilirubin 0.2 mg/dL (0.2-1.3); Total Protein 5.3 g/dL (6.3-8.2)
[2019-08-15] MEDS: MAGNESIUM SULFATE-D5W PMX 1 GM in DEXTROSE/WATER 1 100ML.BAG IVPB SCH ×2 (04:54→07:49)
[2019-08-15 04:58] LABS: Basophils % (A) 0 %; Eosinophils # (A) 0.1 k/uL (0-0.7); Eosinophils % (A) 1 %; HCT 44.9 % (34.0-46.0); HGB 14.6 gm/dL (11.4-16.0); Lymphocytes # (A) 0.2 k/uL (1.0-4.8); Lymphocytes % (A) 2 %; MCH 31.8 pg (25.0-35.0); MCHC 32.5 g/dL (31.0-37.0); MCV 97.9 fL (80.0-100.0); Mean Platelet Volume 7.6; Monocytes # (A) 0.4 k/uL (0-1.0); Monocytes % (A) 3 %; Neutrophils # (A) 10.1 k/uL (1.3-7.7); Neutrophils % (A) 94 %; Platelet Count 150 k/uL (150-450); RBC 4.58 m/uL (3.80-5.40); RDW 14.2 % (11.5-15.5); WBC 10.8 k/uL (3.8-10.6)
[2019-08-15 05:39] LABS: Glucose,Whole Blood 209 mg/dL (75-99)
[2019-08-15] MEDS: POTASSIUM CHLORIDE 10 MEQ in WATER FOR INJECTION 1 100ML.BAG IVPB SCH ×2 (06:17→07:49)
[2019-08-15 06:21] LABS: Glucose,Whole Blood 245 mg/dL (75-99)
[2019-08-15] MEDS: PROPOFOL 1,000 MG in EMPTY BAG 1 BAG IV SCH (06:24)
[2019-08-15 07:09] LABS: ABG Base Excess -3.1 mmol/L; ABG HCO3 23 mmol/L (21-25); ABG PCO2 41 mmHg (35-45); ABG PH 7.35 (7.35-7.45); ABG PO2 99 mmHg (83-108); ABG TCO2 24 mmol/L (19-24); Allen Test Performed? Yes
--- NOTE | 2019-08-15 07:17 | XR ---
EXAMINATION TYPE: XR chest 1V portable DATE OF EXAM: 08/15/2019 CLINICAL HISTORY: Difficulty breathing progress study. TECHNIQUE: Single AP portable upright view of the chest is obtained. COMPARISON: Chest x-ray from one day earlier and older studies. FINDINGS: Defibrillator pad redemonstrated overlying the lateral right mid chest. Stable endotrachea l and orogastric tubes. Background chronic emphysematous change with improved or resolution of tiny b ilateral pleural effusions. No new suspicious focal airspace opacity or pneumothorax seen bilaterally . Cardiac silhouette size remains within normal limits. Osseous structures are intact. IMPRESSION: Chronic emphysematous change with interval resolution of tiny bilateral pleural effusions . No new suspicious acute pulmonary process.
[2019-08-15] MEDS: SODIUM CHLORIDE 0.9% 1,000 ML IV SCH ×2 (07:50→18:57)
[2019-08-15] MEDS: CHLORHEXIDINE GLUCONATE 15 ML CUP MUCOUS MEM SCH ×2 (07:50→20:14)
[2019-08-15] MEDS: PANTOPRAZOLE 40 MG/10 ML VIAL IV SCH (07:50)
[2019-08-15] MEDS: IPRATROPIUM-ALBUTEROL 3 ML NEB INHALATION SCH ×4 (08:04→19:18)
[2019-08-15 09:46] VITALS: BMI 20.9
[2019-08-15 11:40] LABS: Glucose,Whole Blood 135 mg/dL (75-99)
[2019-08-15 12:36] LABS: Glucose,Whole Blood 139 mg/dL (75-99)
--- NOTE | 2019-08-15 12:41 | P.CNPUL ---
History of Present Illness Consult date: 08/15/19 Requesting physician: Ildefonso Elliott Reason for consult: other (Cardiac arrest) Chief complaint: Cardiac arrest/CPR History of present illness: This is a 54-year-old female with known history of severe COPD, [id number] smoking history, tobacco dependence syndrome, ADHD, bipolar disorder, general anxiety disorder, hypertension, migraine cephalgia, hearing impairment, patient is on home oxygen, she is also maintained on prednisone at 5 mg daily. She was last admitted to [facility] in early May of 2019, and she was seen by Dr. Graham and Dr. Montero on consultation. Patient has been doing fairly fine and coping well with her COPD, and according to the family she was fine until 5 minutes prior were and she was found unresponsive. CPR was started by family members. EMS arrived to the scene within 5 minutes, and started CPR intubated the patient, and she was found in pulseless electrical activity. She was given 2 rounds of epinephrine while performing CPR. And there was a spontaneous return of circulation. Patient remained unresponsive, arrived to the ER, chest x-ray showed no evidence of pulmonary edema, no evidence of pneumonia, however her ABG reflected a severe hypercapnia and severe respiratory acidosis with a pO2 of over 400, pCO2 of 74 pH of 7.14. The rest of the labs were basically unremarkable including relatively normal CBC. Normal basic metabolic profile. Normal troponin. Negative terrell virus PCR. Positive drug screen for cocaine, amphetamine, and marijuana. Patient was admitted to the intensive care unit, CT of the brain was unremarkable. I was asked to see the patient on consultation. Presently she is on mechanical ventilation, and her assist-control rate is 20 to tidal volume is 400 FiO2 is 40% and PEEP is 5. ABG showed a pO2 of 99 pCO2 of 41 pH of 7.35. Patient did not require any pressors. Her IV fluid is 0.9 normal saline at 100 mL per hour, he is on propofol at 25 mcg/kg/m. She is sedated, not responding to any painful stimuli. Hence the plan is to interrupt sedation, and hopefully assess mental status off propofol. Review of Systems ROS unobtainable: due to endotracheal tube Past Medical History Past Medical History: Asthma, COPD, Hearing Disorder / Deafness, Hypertension, Pneumonia Additional Past Medical History / Comment(s): Tracheobronchitis, deaf L ear and ALUTIIQ in R ear, chronic cervical/back pain, RLS, migraines, insomnia. History of Any Multi-Drug Resistant Organisms: None Reported Past Surgical History: Ear Surgery Additional Past Surgical History / Comment(s): Multiple bilateral ear tubes as child; has had L ear reconstruction, pain clinic procedures. Past Anesthesia/Blood Transfusion Reactions: No Reported Reaction Additional Past Anesthesia/Blood Transfusion Reaction / Comment(s): Pt has no problems with anesthetics and has never recieved blood. Past Psychological History: ADD/ADHD, Bipolar, Depression, Panic Disorder Additional Psychological History / Comment(s): She has a nebulizer. Lives with her daughter, caregiver. Smoking Status: Current every day smoker Past Alcohol Use History: Occasional Additional Past Alcohol Use History / Comment(s): Pt started smoking in 1986 and is a ppd smoker. Past Drug Use History: Marijuana, Opiates - Past Family History Mother Family Medical History: Cancer Additional Family Medical History / Comment(s): Mother had "a few kinds of cancers" and from cancer at age 60 yrs. Father History Unknown: Yes Family Medical History: Unable to Obtain Additional Family Medical History / Comment(s): Pt does not know her father. Medications and Allergies Home Medications Medication Instructions Recorded Confirmed Type QUEtiapine [SEROquel] 100 mg PO HS PRN 12/31/15 08/14/19 History rOPINIRole HCL [Requip] 0.5 mg PO HS PRN 02/05/18 08/14/19 History PARoxetine HCL [Paxil] 10 mg PO DAILY 05/30/19 08/14/19 History Fluticasone Propion/Salmeterol 1 puff INHALATION RT-BID #1 device 06/02/19 08/14/19 Rx [Wixela 250-50 Inhub] Albuterol Nebulized (Conc) 2.5 mg INHALATION RT-Q6H PRN 08/14/19 08/14/19 History [Ventolin Nebulized (Conc)] Albuterol Nebulized [Ventolin 2.5 mg INHALATION RT-Q6H PRN 08/14/19 08/14/19 His tory Nebulized] Albuterol Sulfate [Ventolin HFA] 2 puff INHALATION RT-Q6H PRN 08/14/19 08/14/19 History Ipratropium-Albuterol Nebulize 3 ml INHALATION RT-QID PRN 08/14/19 08/14/19 History [Duoneb 0.5 mg-3 mg/3 ml Soln] Allergies Allergy/AdvReac Type Severity Reaction Status Date / Time No Known Allergies Allergy Verified 08/14/19 21:35 Physical Exam Vitals: Vital Signs Temp Pulse Resp BP Pulse Ox 08/15/19 11:50 108 H 08/15/19 11:35 105 H 08/15/19 11:00 103 H 24 144/92 97 08/15/19 10:30 99 22 131/85 97 08/15/19 10:00 100 22 123/86 97 08/15/19 09:30 105 H 22 116/77 98 08/15/19 09:00 106 H 22 118/82 98 08/15/19 08:30 109 H 22 114/81 98 08/15/19 08:15 114 H 08/15/19 08:05 111 H 08/15/19 08:00 98.6 F 110 H 22 114/79 97 08/15/19 07:30 111 H 23 125/84 96 08/15/19 07:00 112 H 23 120/84 97 08/15/19 06:30 112 H 22 118/83 96 08/15/19 06:00 112 H 22 117/81 96 08/15/19 05:30 117 H 22 120/83 97 08/15/19 05:00 117 H 22 121/81 97 08/15/19 04:30 118 H 23 109/80 98 08/15/19 04:00 98.1 F 118 H 22 103/78 97 08/15/19 03:35 121 H 08/15/19 03:30 121 H 22 118/81 99 08/15/19 03:25 112 H 08/15/19 03:00 117 H 22 105/80 98 08/15/19 02:30 117 H 22 94/70 98 08/15/19 02:00 121 H 30 H 111/82 96 08/15/19 01:30 114 H 29 H 118/79 99 08/15/19 01:00 109 H 23 95/72 98 08/15/19 00:30 111 H 22 92/70 98 08/15/19 00:15 110 H 22 98 08/15/19 00:00 98 F 111 H 22 93/72 98 05/1820 23:45 111 H 22 92/70 98 18/20 23:30 116 H 21 89/70 98 18/20 23:15 123 H 22 77/56 96 20 23:00 125 H 22 77/57 98 18/20 22:45 133 H 22 69/55 97 18/20 22:30 128 H 22 100/74 99 18/20 22:18 98.2 F 28 H 100 20 21:52 134 H 16 75/53 99 18/20 21:36 120 H 16 99/62 99 18/20 20:59 118 H 17 101/82 99 20 20:35 117 H 15 105/87 99 20 20:31 128 H 23 20 20:26 116 H 16 113/78 99 18/20 20:20 118 H 20 20 20:16 125 H 16 83/48 99 20 19:57 121 H 20 20 19:45 122 H 20 20 19:31 118 H 16 167/105 99 18/20 19:20 98.6 F 117 H 16 150/107 99 Intake and Output 08/14/1908/14/20 08/15/19 22:59 06:59 14:59 Intake Total 9.452 1898.569 825.561 Output Total 150 520 200 Balance -064.568 9077.569 625.561 Intake: IV 600 Magnesium Sulfate-D5w Pmx 100 1 gm In Dextrose/Water 1 100ml.bag @ 100 mls/hr IVPB Q1H [facility] Rx#: [id number] Potassium Chloride 10 meq 100 In Water For Injection 1 100ml.bag @ 100 mls/hr IVPB Q1H [facility] Rx#: [id number] Sodium Chloride 0.9% 1, 400 000 ml @ 100 mls/hr IV . Q10H [facility] Rx#:[id number] Intake, IV Titration 9.452 1898.569 225.561 Amount Magnesium Sulfate-D5w Pmx 100 1 gm In Dextrose/Water 1 100ml.bag @ 100 mls/hr IVPB Q1H [facility] Rx#: [id number] Potassium Chloride 10 meq 100 In Water For Injection 1 100ml.bag @ 100 mls/hr IVPB Q1H [facility] Rx#: [id number] Propofol 1,000 mg In 9.452 48.569 25.561 Empty Bag 1 bag @ Titrate IV .Q0M [facility] Rx#: [id number] Sodium Chloride 0.9% 1, 700 100 000 ml @ 100 mls/hr IV . Q10H [facility] Rx#:[id number] Sodium Chloride 0.9% 1, 1000 000 ml @ 999 mls/hr IV . Q1H1M [facility] Rx#:[id number] cefTRIAXone 1 gm In 50 Sodium Chloride 0.9% 50 ml @ 100 mls/hr IVPB Q24H [facility] Rx#:[id number] Output: Urine 150 520 200 Uretheral (Abreu) 150 Other: Voiding Method Indwelling Catheter Indwelling Catheter Weight 53.7 kg 53.7 kg 53.7 kg GENERAL EXAM: Revealed a 54-year-old female sedated, intubated, in no distress. On mechanical ventilation. HEAD: Atraumatic, normocephalic. EYES: Normal reaction of pupils, equal size. NOSE: Clear with pink turbinates. THROAT: No erythema or exudates. Endotracheal tube and orogastric tube are intact. NECK: No masses, no JVD. CHEST: No chest wall deformity. LUNGS: Diminished breath sound bilaterally no crackles or rhonchi or wheezes. CVS: S1 and S2 normal with no audible murmur, regular rhythm. ABDOMEN: Soft nontender no megaly no rebound no guarding. SKIN: No rashes CENTRAL NERVOUS SYSTEM: Could not be assessed, patient is sedated on propofol. Psychiatric: Could not be assessed EXTREMITIES: No clubbing edema or cyanosis. Results - Laboratory Findings CBC and BMP: 08/15/19 04:05 08/15/19 04:05 ABG ABG pH 7.35 (7.35-7.45) 08/15/19 07:01 ABG pCO2 41 mmHg (35-45) 08/15/19 07:01 ABG pO2 99 mmHg (83-108) 08/15/19 07:01 ABG O2 Saturation 98.0 % (94-97) H 08/15/19 07:01 PT/INR, D-dimer PT 9.7 sec (9.0-12.0) 08/14/19 19:20 INR 0.9 (<1.2) 08/14/19 19:20 Abnormal lab findings: Abnormal Labs 08/14/19 08/14/19 08/14/19 19:20 19:20 19:20 WBC Hgb 16.1 H Hct 52.8 H MCHC 30.5 L Neutrophils # Lymphocytes # ABG pH ABG pCO2 ABG pO2 ABG Total CO2 ABG O2 Saturation Chloride Carbon Dioxide Glucose 253 H POC Glucose (mg/dL) Plasma Lactic Acid Sedrick 8.9 H* Calcium Ferritin 1395.2 H AST 238 H ALT 161 H Lactate Dehydrogenase 1418 H Troponin I Total Protein 5.6 L Albumin 3.4 L Urine Appearance Urine Protein Urine Blood Amorphous Sediment Urine Bacteria Urine Mucus Ur Amphetamines Screen Urine Cocaine Screen U Marijuana (THC) Screen 08/14/19 08/14/19 08/14/19 19:22 19:51 20:57 WBC Hgb Hct MCHC Neutrophils # Lymphocytes # ABG pH 7.14 L* ABG pCO2 74 H* ABG pO2 >400 H ABG Total CO2 28 H ABG O2 Saturation 99.6 H Chloride Carbon Dioxide Glucose POC Glucose (mg/dL) 219 H Plasma Lactic Acid Sedrick Calcium Ferritin AST ALT Lactate Dehydrogenase Troponin I Total Protein Albumin Urine Appearance Cloudy H Urine Protein 1+ H Urine Blood Trace H Amorphous Sediment Rare H Urine Bacteria Rare H Urine Mucus Moderate H Ur Amphetamines Screen Detected H Urine Cocaine Screen Detected H U Marijuana (THC) Screen Detected H 08/14/19 08/14/19 08/15/19 22:18 23:37 00:00 WBC Hgb Hct MCHC Neutrophils # Lymphocytes # ABG pH ABG pCO2 ABG pO2 ABG Total CO2 ABG O2 Saturation Chloride Carbon Dioxide Glucose POC Glucose (mg/dL) 193 H 157 H Plasma Lactic Acid Sedrick 3.8 H* Calcium Ferritin AST ALT Lactate Dehydrogenase Troponin I Total Protein Albumin Urine Appearance Urine Protein Urine Blood Amorphous Sediment Urine Bacteria Urine Mucus Ur Amphetamines Screen Urine Cocaine Screen U Marijuana (THC) Screen 08/15/19 08/15/19 08/15/19 04:05 04:05 04:05 WBC 10.8 H Hgb Hct MCHC Neutrophils # 10.1 H Lymphocytes # 0.2 L ABG pH ABG pCO2 ABG pO2 ABG Total CO2 ABG O2 Saturation Chloride 113 H Carbon Dioxide 21 L Glucose 172 H POC Glucose (mg/dL) Plasma Lactic Acid Sedrick Calcium 7.9 L Ferritin AST 216 H ALT 181 H Lactate Dehydrogenase Troponin I 0.048 H* Total Protein 5.3 L Albumin 3.2 L Urine Appearance Urine Protein Urine Blood Amorphous Sediment Urine Bacteria Urine Mucus Ur Amphetamines Screen Urine Cocaine Screen U Marijuana (THC) Screen 08/15/19 08/15/19 08/15/19 05:38 06:20 07:01 WBC Hgb Hct MCHC Neutrophils # Lymphocytes # ABG pH ABG pCO2 ABG pO2 ABG Total CO2 ABG O2 Saturation 98.0 H Chloride Carbon Dioxide Glucose POC Glucose (mg/dL) 209 H 245 H Plasma Lactic Acid Sedrick Calcium Ferritin AST ALT Lactate Dehydrogenase Troponin I Total Protein Albumin Urine Appearance Urine Protein Urine Blood Amorphous Sediment Urine Bacteria Urine Mucus Ur Amphetamines Screen Urine Cocaine Screen U Marijuana (THC) Screen 08/15/19 11:39 WBC Hgb Hct MCHC Neutrophils # Lymphocytes # ABG pH ABG pCO2 ABG pO2 ABG Total CO2 ABG O2 Saturation Chloride Carbon Dioxide Glucose POC Glucose (mg/dL) 135 H Plasma Lactic Acid Sedrick Calcium Ferritin AST ALT Lactate Dehydrogenase Troponin I Total Protein Albumin Urine Appearance Urine Protein Urine Blood Amorphous Sediment Urine Bacteria Urine Mucus Ur Amphetamines Screen Urine Cocaine Screen U Marijuana (THC) Screen - Diagnostic Findings Chest x-ray: image reviewed (Chronic emphysematous changes bilaterally. No evidence of acute pulmonary process. Endotracheal tube is in the proper position.) Additional studies: CT of the brain appeared normal. Assessment and Plan Assessment: Impression: Cardiopulmonary arrest requiring CPR, epinephrine, intubation and mechanical ventilation. Acute on chronic hypoxic and hypercapnic respiratory failure secondary to above. Severe end-stage COPD History of chronic hypoxic respiratory failure. Possible anoxic brain injury Tobacco dependence syndrome Benign essential hypertension History of deafness History of migraine cephalgia Restless leg syndrome Insomnia Chronic neck and back pain. Recommendation: Continue ventilatory support. GI and DVT prophylaxis. Assessment of mental status off propofol to assess for possible anoxic brain injury Continue bronchodilators and steroids Cardiology to evaluate for cardiac arrest. Start enteral feeding Monitor daily labs and ABGs Empiric antibiotics/Rocephin Insulin as per protocol to control blood sugar. Especially that the patient is on Solu-Medrol. Daily assessment for weaning assuming the patient did not sustain significant anoxic brain injury. We'll continue to follow. Prognosis is definitely guarded. Time with Patient: Greater than 30
--- NOTE | 2019-08-15 15:54 | CONS ---
CONSULTATION CHIEF COMPLAINT: Cardiac arrest. Mihaela is a 54-year-old lady who is brought into hospital having had a cardiac arrest at home. She was apparently talking to someone on the phone and suddenly passed out and EMS was called and found her to be pulseless electrical activity. She was resuscitated and brought to the hospital. She has severe COPD, bipolar mood disorder, hypertension, and there is history of drug abuse. I have been consulted for the cardiac arrest. She apparently has been tested for coronavirus and was found to be negative. Her drug screen is positive for cocaine, amphetamine, and marijuana. She is currently intubated on vent and CT brain was unremarkable. PAST MEDICAL HISTORY: Significant for COPD. MEDICATIONS: Include Seroquel, Requip, Paxil, albuterol. ALLERGIES: No known drug allergies. FAMILY HISTORY: Negative for premature coronary artery disease. SOCIAL HISTORY: Negative for current smoking, EtOH abuse, or drug abuse. REVIEW OF SYSTEMS: Significant for smoking, EtOH abuse, and drug abuse. REVIEW OF SYSTEMS: Unable to obtain. PHYSICAL EXAMINATION: On exam, patient is intubated on vent. Heart rate is around 103 beats per minute. Blood pressure is 139/90, respiratory rate is 18, O2 saturation is 96%. Chest exam reveals diminished air entry bilaterally. Heart exam reveals first and second heart sounds. No gallop. Has a systolic murmur at the left lower sternal border. Abdomen is Soft. Exam of extremities did not reveal any edema. Peripheral pulses are felt. LABS: Show that the hemoglobin is 14.6, platelet count is 150. Potassium is 4.8, creatinine is 0.8. EKG shows sinus tachycardia. Chest x-ray shows chronic emphysema. ASSESSMENT: 1. Status post cardiac arrest. 2. Vent requiring respiratory failure. Her cardiac arrest could be related to the drug abuse. I will obtain a 2D echo to evaluate LV function. Her prognosis is guarded. MMODL / IJN: [id number] /
--- NOTE | 2019-08-15 17:46 | CT ---
EXAMINATION TYPE: CT angio head neck DATE OF EXAM: 08/15/2019 HISTORY: Cardiac arrest, anoxic brain injury. COMPARISON: NONE CT DLP: 1483.4 mGycm. Automated Exposure Control for Dose Reduction was Utilized. TECHNIQUE: CTA scan of the head and neck are performed without and with IV Contrast, patient injecte d with 65 mL of Isovue 370, axial images are obtained, coronal and sagittal reformatted images are re viewed. Three-D reconstructed images are created on an independent workstation and reviewed. FINDINGS: Carotid/Vascular Structures: Normal three-vessel origin from aortic arch. Right common carotid artery shows normal origin from right brachiocephalic artery. No significant plaque or stenosis in common o r internal carotid arteries bilaterally including bilateral carotid bulbs. Patent bilateral external carotid arteries without significant stenosis. Codominant vertebrobasilar system. Vertebral arteries patent to basilar junction. Hypoplastic bilater al posterior commuting arteries. No significant focal stenosis or aneurysmal change seen. Patent ante rior communicating artery. No significant focal stenosis or aneurysmal change in the anterior circula tion. Other: Noncontrast CT shows no acute intracranial hemorrhage or midline shift. Ventricles and sulci a re normal in size. Arredondo-white matter differentiation is preserved. There is dependent fluid in bilate ral maxillary sinuses and large-caliber left sphenoid sinus along with patchy fluid in the bilateral ethmoid sinuses. Endotracheal tube terminates above the larisa. Partial visualization of orogastric tube. Multilevel m [id number] disc space narrowing in the cervical thoracic spine. Mild to moderate emphysematous c hange and visualized upper lungs. IMPRESSION: 1. No significant stenosis in common or internal carotid arteries bilaterally. 2. No significant stenosis or aneurysmal change at the level of the [place].
[2019-08-15 18:13] LABS: Glucose,Whole Blood 102 mg/dL (75-99)
--- NOTE | 2019-08-15 18:39 | HP ---
HISTORY AND PHYSICAL CHIEF COMPLAINT: Cardiac arrest. HISTORY OF PRESENT ILLNESS: There is no history accompanying the admission of this lady. She apparently was at home with her family. When they left the room, they came back, realizing that she had passed out. They immediately instituted resuscitative measures until the ambulance got there. She was intubated and brought in and was admitted. It is not known if she has a history of cardiac disease, neurologic problems, etc. Drug screen did demonstrate cocaine and other illicit substances. REVIEW OF SYSTEMS: Unobtainable. Past medical history, family history, and personal and social histories are unobtainable. PHYSICAL EXAMINATION: Blood pressure is 101/62. Respirations were around 21 on the ventilator. Pulse was 89. In general she appeared to be well developed and well nourished, on the ventilator. Pupils were fairly dilated. They were fixed. Gaze was dysconjugate. Ears, nose and mouth were normal. Breath sounds are heard on both sides. Cardiac exam demonstrated sinus rhythm. Abdomen is soft with no masses. Extremities are normal. IMPRESSION: Cardiorespiratory arrest. PLAN: 1. Continue to follow with Intensive Medicine. 2. Neurology consult and workup if she does not respond neurologically. MMODL / IJN: [id number] /
--- NOTE | 2019-08-15 18:39 | PN ---
PROGRESS NOTE CHIEF COMPLAINT: Cardiorespiratory arrest. HISTORY OF PRESENT ILLNESS: This lady continues on the ventilator with ventilator support. There is no further change in her condition. Her vital signs are normal. PHYSICAL EXAMINATION: Her pupils are quite widely dilated. Breath sounds are heard bilaterally and they are clear. Cardiac exam demonstrates sinus rhythm. Abdomen is soft. Extremities are normal. IMPRESSION: 1. Cardiorespiratory arrest, etiology unknown. 2. History of illicit substance use. PLAN: Continue to follow in ICU and await further possible neurologic workup. MMODL / IJN: [id number] /
--- NOTE | 2019-08-15 19:57 | P.CNNES ---
History of Present Illness Consult date: 08/15/19 Reason for Consult: Anoxic brain injury status post cardiac arrest History of Present Illness: This is a new neurology consult requested for further advice recommendations and a 54-year-old female who came in to the emergency room yesterday on the . Per report she had been witnessed to be normal 5 minutes prior to the myocardial infarction. EMS report found patient in PE 8. CPR and intubation was done at the scene with 2 DOSES OF EPINEPHERINE given. Initially the patient had a normal troponin then became elevated to 0.048. Urine drug screen was found to be positive for cocaine, amphetamine and CBD. Review of her labs shows abnormally elevated liver function test with AST 238 ALTs 161. Elevated lactic acid dehydrogenase 1418. Normal BUN/creatinine. Next para this patient's past medical history significant for reactive airway disease COPD dyslipidemia and hypertension. She is on chronic opioid therapy for chronic cervical neck and back pain. History of restless leg syndrome. History of migraine and insomnia. Significant psychiatric history for ADHD, bipolar disease, depression and panic disorder. Review of her labs on admission showed the patient was hypertensIVE with a blood pressure of 150/107. Neuroimaging studies completed since admission, 1. Computed tomography scan of the head noncontrast negative for any acute intracranial pathology 2. CT angiography head and neck performed today showing no evidence of large vessel occlusion, high-grade stenosis dissection or aneurysm. 3. Chest x-ray shows chronic seen with this changes with bilateral pleural effusions. Past Medical History Past Medical History: Asthma, COPD, Hearing Disorder / Deafness, Hypertension, Pneumonia Additional Past Medical History / Comment(s): Tracheobronchitis, deaf L ear and [place] in R ear, chronic cervical/back pain, RLS, migraines, insomnia. History of Any Multi-Drug Resistant Organisms: None Reported Past Surgical History: Ear Surgery Additional Past Surgical History / Comment(s): Multiple bilateral ear tubes as child; has had L ear reconstruction, pain clinic procedures. Past Anesthesia/Blood Transfusion Reactions: No Reported Reaction Additional Past Anesthesia/Blood Transfusion Reaction / Comment(s): Pt has no problems with anesthetics and has never recieved blood. Past Psychological History: ADD/ADHD, Bipolar, Depression, Panic Disorder Additional Psychological History / Comment(s): She has a nebulizer. Lives with her daughter, caregiver. Smoking Status: Current every day smoker Past Alcohol Use History: Occasional Additional Past Alcohol Use History / Comment(s): Pt started smoking in 1986 and is a ppd smoker. Past Drug Use History: Marijuana, Opiates - Past Family History Mother Family Medical History: Cancer Additional Family Medical History / Comment(s): Mother had "a few kinds of cancers" and from cancer at age 60 yrs. Father History Unknown: Yes Family Medical History: Unable to Obtain Additional Family Medical History / Comment(s): Pt does not know her father. Medications and Allergies Home Medications Medication Instructions Recorded Confirmed Type QUEtiapine [SEROquel] 100 mg PO HS PRN 12/31/15 08/14/19 History rOPINIRole HCL [Requip] 0.5 mg PO HS PRN 02/05/18 08/14/19 History PARoxetine HCL [Paxil] 10 mg PO DAILY 05/30/19 08/14/19 History Fluticasone Propion/Salmeterol 1 puff INHALATION RT-BID #1 device 06/02/19 08/14/19 Rx [Wixela 250-50 Inhub] Albuterol Nebulized (Conc) 2.5 mg INHALATION RT-Q6H PRN 08/14/19 08/14/19 History [Ventolin Nebulized (Conc)] Albuterol Nebulized [Ventolin 2.5 mg INHALATION RT-Q6H PRN 08/14/19 08/14/19 History Nebulized] Albuterol Sulfate [Ventolin HFA] 2 puff INHALATION RT-Q6H PRN 08/14/19 08/14/19 History Ipratropium-Albuterol Nebulize 3 ml INHALATION RT-QID PRN 08/14/19 08/14/19 History [Duoneb 0.5 mg-3 mg/3 ml Soln] Allergies Allergy/AdvReac Type Severity Reaction Status Date / Time No Known Allergies Allergy Verified 08/14/19 21:35 Physical Examination - Vital Signs Vital Signs: Vital Signs Temp Pulse Resp BP Pulse Ox 08/15/19 19:30 96 08/15/19 19:19 102 H 08/15/19 19:00 99 22 138/85 99 08/15/19 18:30 97 23 140/84 99 08/15/19 18:00 97 23 138/83 99 08/15/19 17:30 105 H 23 135/82 99 08/15/19 17:00 106 H 22 135/83 100 08/15/19 16:30 103 H 22 134/87 100 08/15/19 16:00 99.6 F 105 H 22 131/86 96 08/15/19 15:41 109 H 08/15/19 15:32 115 H 08/15/19 15:30 124 H 22 157/92 95 08/15/19 15:00 106 H 22 139/89 98 08/15/19 14:30 101 H 22 138/89 98 08/15/19 14:00 104 H 22 149/92 97 08/15/19 13:30 105 H 24 137/90 97 08/15/19 13:00 105 H 22 144/91 96 08/15/19 12:30 104 H 22 139/93 96 08/15/19 12:00 99.3 F 106 H 22 131/94 99 08/15/19 11:50 108 H 08/15/19 11:35 105 H 08/15/19 11:30 105 H 22 138/92 99 08/15/19 11:00 103 H 24 144/92 97 08/15/19 10:30 99 22 131/85 97 08/15/19 10:00 100 22 123/86 97 08/15/19 09:30 105 H 22 116/77 98 08/15/19 09:00 106 H 22 118/82 98 08/15/19 08:30 109 H 22 114/81 98 08/15/19 08:15 114 H 08/15/19 08:05 111 H 08/15/19 08:00 98.6 F 110 H 22 114/79 97 08/15/19 07:30 111 H 23 125/84 96 08/15/19 07:00 112 H 23 120/84 97 08/15/19 06:30 112 H 22 118/83 96 08/15/19 06:00 112 H 22 117/81 96 08/15/19 05:30 117 H 22 120/83 97 08/15/19 05:00 117 H 22 121/81 97 08/15/19 04:30 118 H 23 109/80 98 08/15/19 04:00 98.1 F 118 H 22 103/78 97 08/15/19 03:35 121 H 08/15/19 03:30 121 H 22 118/81 99 08/15/19 03:25 112 H 08/15/19 03:00 117 H 22 105/80 98 08/15/19 02:30 117 H 22 94/70 98 08/15/19 02:00 121 H 30 H 111/82 96 08/15/19 01:30 114 H 29 H 118/79 99 08/15/19 01:00 109 H 23 95/72 98 08/15/19 00:30 111 H 22 92/70 98 08/15/19 00:15 110 H 22 98 08/15/19 00:00 98 F 111 H 22 93/72 98 08/14/19 23:45 111 H 22 92/70 98 08/14/19 23:30 116 H 21 89/70 98 08/14/19 23:15 123 H 22 77/56 96 08/14/19 23:00 125 H 22 77/57 98 08/14/19 22:45 133 H 22 69/55 97 08/14/19 22:30 128 H 22 100/74 99 08/14/19 22:18 98.2 F 28 H 100 20 21:52 134 H 16 75/53 99 18/20 21:36 120 H 16 99/62 99 18/20 20:59 118 H 17 101/82 99 20 20:35 117 H 15 105/87 99 18/20 20:31 128 H 23 20 20:26 116 H 16 113/78 99 18/20 20:20 118 H 20 20 20:16 125 H 16 83/48 99 1820 19:57 121 H 20 20 19:45 122 H 20 Intake and Output 08/15/19 08/15/19 08/15/19 06:59 14:59 22:59 Intake Total 9399.116 2663.561 580 Output Total 520 325 255 Balance 1378.569 880.561 325 Intake: IV 900 500 Magnesium Sulfate-D5w Pmx 100 1 gm In Dextrose/Water 1 100ml.bag @ 100 mls/hr IVPB Q1H [facility] Rx#: [id number] Potassium Chloride 10 meq 100 In Water For Injection 1 100ml.bag @ 100 mls/hr IVPB Q1H [facility] Rx#: [id number] Sodium Chloride 0.9% 1, 700 500 000 ml @ 100 mls/hr IV . Q10H [facility] Rx#:[id number] Intake, IV Titration 1898.569 225.561 0 Amount Magnesium Sulfate-D5w Pmx 100 1 gm In Dextrose/Water 1 100ml.bag @ 100 mls/hr IVPB Q1H [facility] Rx#: [id number] Potassium Chloride 10 meq 100 In Water For Injection 1 100ml.bag @ 100 mls/hr IVPB Q1H [facility] Rx#: [id number] Propofol 1,000 mg In 48.569 25.561 0 Empty Bag 1 bag @ Titrate IV .Q0M [facility] Rx#: [id number] Sodium Chloride 0.9% 1, 700 100 000 ml @ 100 mls/hr IV . Q10H [facility] Rx#:[id number] Sodium Chloride 0.9% 1, 1000 000 ml @ 999 mls/hr IV . Q1H1M [facility] Rx#:[id number] cefTRIAXone 1 gm In 50 Sodium Chloride 0.9% 50 ml @ 100 mls/hr IVPB Q24H [facility] Rx#:[id number] Tube Feeding 50 50 Other 30 30 Output: Urine 520 325 255 Other: Voiding Method Indwelling Catheter Indwelling Catheter Indwelling Catheter Weight 53.7 kg 53.7 kg Exam limited due to patient on ventilator. Pupils: Dilated 4 mm minimally reactive to light and fixed. No doll's eye maneuver noted. Minimal corneal blink reflex. Gag reflex diminished Motor exam: Minimal if any spontaneous movement. No purposeful movement to tactile stimulation. Deep tendon reflexes: Trace over biceps brachial radialis. Patellar reflexes trace bilaterally. No ankle clonus elicited. Plantar responses are plantar ex tensor bilaterally. [place] coma scale (3) Results - Laboratory Findings CBC and BMP: 08/15/19 04:05 08/15/19 04:05 Abnormal Lab Findings: Abnormal Labs 08/14/19 08/14/19 08/14/19 19:20 19:20 19:20 WBC Hgb 16.1 H Hct 52.8 H MCHC 30.5 L Neutrophils # Lymphocytes # ABG pH ABG pCO2 ABG pO2 ABG Total CO2 ABG O2 Saturation Chloride Carbon Dioxide Glucose 253 H POC Glucose (mg/dL) Plasma Lactic Acid Sedrick 8.9 H* Calcium Ferritin 1395.2 H AST 238 H ALT 161 H Lactate Dehydrogenase 1418 H Creatine Kinase Troponin I Total Protein 5.6 L Albumin 3.4 L Urine Appearance Urine Protein Urine Blood Amorphous Sediment Urine Bacteria Urine Mucus Ur Amphetamines Screen Urine Cocaine Screen U Marijuana (THC) Screen 08/14/19 08/14/19 08/14/19 19:22 19:51 20:57 WBC Hgb Hct MCHC Neutrophils # Lymphocytes # ABG pH 7.14 L* ABG pCO2 74 H* ABG pO2 >400 H ABG Total CO2 28 H ABG O2 Saturation 99.6 H Chloride Carbon Dioxide Glucose POC Glucose (mg/dL) 219 H Plasma Lactic Acid Sedrick Calcium Ferritin AST ALT Lactate Dehydrogenase Creatine Kinase Troponin I Total Protein Albumin Urine Appearance Cloudy H Urine Protein 1+ H Urine Blood Trace H Amorphous Sediment Rare H Urine Bacteria Rare H Urine Mucus Moderate H Ur Amphetamines Screen Detected H Urine Cocaine Screen Detected H U Marijuana (THC) Screen Detected H 08/14/19 08/14/19 08/15/19 22:18 23:37 00:00 WBC Hgb Hct MCHC Neutrophils # Lymphocytes # ABG pH ABG pCO2 ABG pO2 ABG Total CO2 ABG O2 Saturation Chloride Carbon Dioxide Glucose POC Glucose (mg/dL) 193 H 157 H Plasma Lactic Acid Sedrick 3.8 H* Calcium Ferritin AST ALT Lactate Dehydrogenase Creatine Kinase Troponin I Total Protein Albumin Urine Appearance Urine Protein Urine Blood Amorphous Sediment Urine Bacteria Urine Mucus Ur Amphetamines Screen Urine Cocaine Screen U Marijuana (THC) Screen 08/15/19 08/15/19 08/15/19 04:05 04:05 04:05 WBC 10.8 H Hgb Hct MCHC Neutrophils # 10.1 H Lymphocytes # 0.2 L ABG pH ABG pCO2 ABG pO2 ABG Total CO2 ABG O2 Saturation Chloride 113 H Carbon Dioxide 21 L Glucose 172 H POC Glucose (mg/dL) Plasma Lactic Acid Sedrick Calcium 7.9 L Ferritin AST 216 H ALT 181 H Lactate Dehydrogenase Creatine Kinase Troponin I 0.048 H* Total Protein 5.3 L Albumin 3.2 L Urine Appearance Urine Protein Urine Blood Amorphous Sediment Urine Bacteria Urine Mucus Ur Amphetamines Screen Urine Cocaine Screen U Marijuana (THC) Screen 08/15/19 08/15/19 08/15/19 04:05 05:38 06:20 WBC Hgb Hct MCHC Neutrophils # Lymphocytes # ABG pH ABG pCO2 ABG pO2 ABG Total CO2 ABG O2 Saturation Chloride Carbon Dioxide Glucose POC Glucose (mg/dL) 209 H 245 H Plasma Lactic Acid Sedrick Calcium Ferritin AST ALT Lactate Dehydrogenase Creatine Kinase 244 H Troponin I Total Protein Albumin Urine Appearance Urine Protein Urine Blood Amorphous Sediment Urine Bacteria Urine Mucus Ur Amphetamines Screen Urine Cocaine Screen U Marijuana (THC) Screen 08/15/19 08/15/19 08/15/19 07:01 11:39 12:35 WBC Hgb Hct MCHC Neutrophils # Lymphocytes # ABG pH ABG pCO2 ABG pO2 ABG Total CO2 ABG O2 Saturation 98.0 H Chloride Carbon Dioxide Glucose POC Glucose (mg/dL) 135 H 139 H Plasma Lactic Acid Sedrick Calcium Ferritin AST ALT Lactate Dehydrogenase Creatine Kinase Troponin I Total Protein Albumin Urine Appearance Urine Protein Urine Blood Amorphous Sediment Urine Bacteria Urine Mucus Ur Amphetamines Screen Urine Cocaine Screen U Marijuana (THC) Screen 08/15/19 18:12 WBC Hgb Hct MCHC Neutrophils # Lymphocytes # ABG pH ABG pCO2 ABG pO2 ABG Total CO2 ABG O2 Saturation Chloride Carbon Dioxide Glucose POC Glucose (mg/dL) 102 H Plasma Lactic Acid Sedrick Calcium Ferritin AST ALT Lactate Dehydrogenase Creatine Kinase Troponin I Total Protein Albumin Urine Appearance Urine Protein Urine Blood Amorphous Sediment Urine Bacteria Urine Mucus Ur Amphetamines Screen Urine Cocaine Screen U Marijuana (THC) Screen - Diagnostic Findings EKG: report reviewed Chest x-ray: report reviewed (CT of the head and CT angiogram of the head reviewed.) Assessment and Plan Assessment: This is a 54-year-old female who was found by family members approximately 5 minutes after social interaction unresponsive. In the field the patient was found to have had a cardiac arrest requiring intubation and epinephrine. EMS reports that she was found and PDA. Urine drug screen was positive for cocaine and amphetamines and marijuana. This patient's current situation is concerning for high probability for anoxic brain injury status post cardiac arrest. At the present time her CAT scan does not show evidence of any acute ischemic or hemorrhagic infarct or other cranial pathology and be CT in August of the head and neck does not show any evidence for large vessel occlusion, arterial dissection or high-grade stenosis. The neurological exam shows very minimal be any response to tactile stimulation, pupils are fixed dilated with overall glut [place] Coma Scale of 3. Summary 1. Cardiac arrest status post CPR epinephrine mechanical ventilation. 2. Acute on chronic hypercapnic respiratory failure 3. Severe ES COPD 4. Opioid dependency for chronic neck and back pain 5. Anoxic brain injury status post cardiac arrest 6. Long-standing substance abuse positive cocaine and amphetamine and marijuana. 7. Hypertension migraine restless leg syndrome and insomnia This case was discussed with poison control in the event there may be other potential interactions with quetiapine,ropinirole, alprazolam, [place] and Paxil. We discussed the possibility of this patient potentially a suicide atempt with these drugs and toxicity. Poison control recommendations at this time are only supportive care. Recommendations 1. EEG in the morning . 2. Continue with neuro checks every 2 hours per nursing protocol. 3. If there is any posturing or further fixed dilation of the eyes please notify neurology on-call and obtain a stat computed tomography scan of the head noncontrast. This could indicate impending herniation 4. If any evidence of clinical seizure activity please contact operations section manager neurology immediately. 5. Blood pressure management: Maintain systolic blood pressures between 120 and 1:30 maintain diastolic blood pressures between 80 and 90. Avoid hypotension as well as hypertension as this can increase the morbidity of cardiac arrest. 6. Recommended labs: CK. This patient's prognosis remains very guarded. Further recommendations will be made as this case evolves. We'll plan to update family daily on her overall prognosis. Thank you for limited to speak in care of this patient.
[2019-08-15 23:59] LABS: Glucose,Whole Blood 126 mg/dL (75-99)
[2019-08-16] MEDS: INSULIN ASPART (NovoLOG) 100 UNIT/ML VIAL SQ SCH ×4 (00:02→18:13)
[2019-08-16] MEDS: ENOXAPARIN 40 MG/0.4 ML SYRINGE SQ SCH ×2 (00:06→21:29)
[2019-08-16] MEDS: methylPREDNISolone SOD SUCCI 125 MG/2 ML VIAL IV SCH ×4 (00:06→18:13)
[2019-08-16] MEDS: PROPOFOL 1,000 MG in EMPTY BAG 1 BAG IV SCH (02:30)
--- NOTE | 2019-08-16 03:07 | CT ---
EXAMINATION TYPE: CT brain wo con DATE OF EXAM: 08/16/2019 COMPARISON: 08/14/2019 HISTORY: POSTURING, POSSIBLE SEIZURES CT DLP: 1137.40 mGycm Automated exposure control for dose reduction was used. Ventricles have normal size. There is no mass effect nor midline shift. There is no sign of intracran ial hemorrhage. The calvarium is intact. There is mucosal thickening throughout the paranasal sinuses . There is no evidence of cerebral edema. IMPRESSION: Negative CT scan of the brain. No change compared to recent exam. Pansinusitis.
[2019-08-16] MEDS: levETIRAcetam IV 500 MG in SODIUM CHLORIDE 0.9% 100 ML IVPB SCH ×2 (03:18→15:11)
[2019-08-16 04:58] LABS: HCT 42.8 % (34.0-46.0); MCH 31.9 pg (25.0-35.0); MCHC 32.7 g/dL (31.0-37.0); MCV 97.5 fL (80.0-100.0); Mean Platelet Volume 7.9; Platelet Count 189 k/uL (150-450); RBC 4.39 m/uL (3.80-5.40); RDW 14.6 % (11.5-15.5); WBC 14.1 k/uL (3.8-10.6)
[2019-08-16] MEDS: SODIUM CHLORIDE 0.9% 1,000 ML IV SCH ×2 (05:04→15:13)
[2019-08-16 05:11] LABS: Glucose,Whole Blood 129 mg/dL (75-99)
[2019-08-16 05:18] LABS: ALT 146 U/L (4-34); AST 95 U/L (14-36); African American GFR (CKD) >90 (>60 ml/min/1.73 sqM); Albumin 3.2 g/dL (3.5-5.0); Alkaline Phosphatase 53 U/L (38-126); Anion Gap 6 mmol/L; Blood Urea Nitrogen 13 mg/dL (7-17); Calcium 7.9 mg/dL (8.4-10.2); Carbon Dioxide 20 mmol/L (22-30); Chloride 113 mmol/L (98-107); Glucose 157 mg/dL (74-99); Magnesium 2.3 mg/dL (1.6-2.3); Non-African American GFR(CKD) >90 (>60 ml/min/1.73 sqM); Potassium 4.4 mmol/L (3.5-5.1); Sodium 139 mmol/L (137-145); Total Bilirubin 0.3 mg/dL (0.2-1.3); Total Protein 5.6 g/dL (6.3-8.2)
[2019-08-16 07:42] LABS: ABG Base Excess -2.3 mmol/L; ABG HCO3 23 mmol/L (21-25); ABG Oxygen Saturation 98.8 % (94-97); ABG PCO2 40 mmHg (35-45); ABG PH 7.37 (7.35-7.45); ABG PO2 113 mmHg (83-108); ABG TCO2 24 mmol/L (19-24); Allen Test Performed? Yes
[2019-08-16] MEDS: IPRATROPIUM-ALBUTEROL 3 ML NEB INHALATION SCH ×4 (07:53→19:21)
--- NOTE | 2019-08-16 08:18 | XR ---
EXAMINATION TYPE: XR chest 1V portable DATE OF EXAM: 08/16/2019 COMPARISON: Prior chest x-ray 08/15/2019 HISTORY: Intubated TECHNIQUE: Single frontal view of the chest is obtained. FINDINGS: Endotracheal tube, NG tube are overlying appropriate positions. There are overlying cardia c leads and the patient is rotated. Aorta is dense. There is no pneumothorax or pleural effusion. Hea rt is small. Prominence of pulmonary artery could be indicative of pulmonary artery hypertension. Pro minent lung volumes consistent with underlying COPD. IMPRESSION: No acute process.
--- NOTE | 2019-08-16 09:00 | ECHOF ---
Referral Reason:Assess cardiac function MEASUREMENTS -------- HEIGHT: 160.0 cm WEIGHT: 53.5 kg BP: IVSd: 1.1 cm (0.6 - 1.1) LVIDd: 2.6 cm (3.9 - 5.3) LVPWd: 1.0 cm (0.6 - 1.1) IVSs: 1.4 cm LVIDs: 1.5 cm LVPWs: 1.6 cm Ao Diam: 2.7 cm (2.0 - 3.7) AV Cusp: 1.6 cm (1.5 - 2.6) LA Diam: 2.1 cm (2.7 - 3.8) MV EXCURSION: 14.577 mm (> 18.000) MV EF SLOPE: 66 mm/s (70 - 150) EPSS: 0.8 cm MV E Mark: 0.78 m/s MV DecT: 111 ms MV A Mark: 0.84 m/s MV E/A Ratio: 0.94 RAP: 5.00 mmHg RVSP: 12.23 mmHg FINDINGS -------- Resting tachycardia (HR>100bpm). This was a technically adequate study. Pt. on a vent. The left ventricular size is normal. Left ventricular wall thickness is normal. Overall left vent ricular systolic function is normal with, an EF between 55 - 60 %. The right ventricle is normal in size. The left atrial size is normal. The right atrial size is normal. The aortic valve is trileaflet and appears structurally normal. The mitral valve is normal. There is trace mitral regurgitation. The tricuspid valve appears structurally normal. Trace tricuspid regurgitation present. Right [place] tricular systolic pressure is normal at < 35 mmHg. There is no pulmonic regurgitation present. The aortic root size is normal. Normal inferior vena cava with normal inspiratory collapse consistent with estimated right atrial pre ssure of 5 mmHg. There is no pericardial effusion. CONCLUSIONS -------- 1. Resting tachycardia (HR>100bpm). 2. This was a technically adequate study. 3. Pt. on a vent. 4. The left ventricular size is normal. 5. Left ventricular wall thickness is normal. 6. Overall left ventricular systolic function is normal with, an EF between 55 - 60 %. 7. The right ventricle is normal in size. 8. The left atrial size is normal. 9. The right atrial size is normal. 10. The aortic valve is trileaflet and appears structurally normal. 11. The mitral valve is normal. 12. There is trace mitral regurgitation. 13. The tricuspid valve appears structurally normal. 14. Trace tricuspid regurgitation present. 15. Right ventricular systolic pressure is normal at < 35 mmHg. 16. There is no pulmonic regurgitation present. 17. The aortic root size is normal. 18. Normal inferior vena cava with normal inspiratory collapse consistent with estimated right atrial pressure of 5 mmHg. 19. There is no pericardial effusion. RECOVERY ASSISTANT: Erika Traylor RDCS
[2019-08-16] MEDS: PANTOPRAZOLE 40 MG/10 ML VIAL IV SCH (09:27)
[2019-08-16] MEDS: CHLORHEXIDINE GLUCONATE 15 ML CUP MUCOUS MEM SCH ×2 (09:27→21:29)
--- NOTE | 2019-08-16 12:10 | P.PN ---
Subjective Progress Note Date: 08/16/19 Principal diagnosis: Cardiopulmonary arrest This is a 54-year-old female with known history of severe COPD, [id number] smoking history, tobacco dependence syndrome, ADHD, bipolar disorder, general anxiety disorder, hypertension, migraine cephalgia, hearing impairment, patient is on home oxygen, she is also maintained on prednisone at 5 mg daily. She was last admitted to [facility] in early May of 2019, and she was seen by Dr. Graham and Dr. Montero on consultation. Patient has been doing fairly fine and coping well with her COPD, and according to the family she was fine until 5 minutes prior were and she was found unresponsive. CPR was started by family members. EMS arrived to the scene within 5 minutes, and started CPR intubated the patient, and she was found in pulseless electrical activity. She was given 2 rounds of epinephrine while performing CPR. And there was a spontaneous return of circulation. Patient remained unresponsive, arrived to the ER, chest x-ray showed no evidence of pulmonary edema, no evidence of pneumonia, however her ABG reflected a severe hypercapnia and severe respiratory acidosis with a pO2 of over 400, pCO2 of 74 pH of 7.14. The rest of the labs were basically unremarkable including relatively normal CBC. Normal basic metabolic profile. Normal troponin. Negative terrell virus PCR. Positive drug screen for cocaine, amphetamine, and marijuana. Patient was admitted to the intensive care unit, CT of the brain was unremarkable. I was asked to see the patient on consultation. Presently she is on mechanical ventilation, and her assist-control rate is 20 to tidal volume is 400 FiO2 is 40% and PEEP is 5. ABG showed a pO2 of 99 pCO2 of 41 pH of 7.35. Patient did not require any pressors. Her IV fluid is 0.9 normal saline at 100 mL per hour, he is on propofol at 25 mcg/kg/m. She is sedated, not responding to any painful stimuli. Hence the plan is to interrupt sedation, and hopefully assess mental status off propofol. Reevaluated today on 08/16/19, patient remains in the ICU, intubated and m echanically ventilated. Patient is on assist control rate of 20 to tidal volume is 400 FiO2 is 40% PEEP is 5. ABG showed a pO2 of 113 pCO2 of 40 0 pH of 7.37. Patient is not requiring any pressors. She is off the prevent, and she is not responding to any deep painful stimuli. Sedation has been on hold since yesterday. Patient is noted to have intermittent episodes of both sharing. She is not following any commands. She has negative gag reflex, negative corneals, and negative caloric. She was seen by neurology, and felt to have anoxic brain injury status post cardiac arrest. At any rate patient is to be further evaluated by neurology, and at this point it seems like the patient has no potential of having any significant recovery or any potential of having a good quality of life. May have to seriously consider approaching the family about CODE STATUS and possibly comfort care measures. Hopefully this will be decided upon in the next 24 hours. In the meantime patient is supposed to have an EEG today, and her CT of the brain done yesterday showed no significant findings. Objective - Vital Signs Vital signs: Vital Signs Temp 98.3 F 08/16/19 08:00 Pulse 99 08/16/19 11:34 Resp 24 08/16/19 11:00 BP 122/71 08/16/19 11:00 Pulse Ox 97 08/16/19 11:00 Intake & Output 08/15/19 08/16/19 08/16/19 18:59 06:59 18:59 Intake Total 9214.046 9373.958 651 Output Total 520 519 152 Balance 2496.593 5762.958 499 Weight 53.7 kg 55.4 kg Intake: IV 1300 1350 500 Magnesium Sulfate-D5w Pmx 100 1 gm In Dextrose/Water 1 100ml.bag @ 100 mls/hr IVPB Q1H [facility] Rx#: [id number] Potassium Chloride 10 meq 100 In Water For Injection 1 100ml.bag @ 100 mls/hr IVPB Q1H [facility] Rx#: [id number] Sodium Chloride 0.9% 1, 1100 1200 500 000 ml @ 100 mls/hr IV . Q10H [facility] Rx#:[id number] cefTRIAXone 1 gm In 50 Sodium Chloride 0.9% 50 ml @ 100 mls/hr IVPB Q24H [facility] Rx#:[id number] levETIRAcetam IV 500 mg 100 In Sodium Chloride 0.9% 100 ml @ 400 mls/hr IVPB Q12H [facility] Rx#:[id number] Intake, IV Titration 225.561 67.958 Amount Potassium Chloride 10 meq 100 In Water For Injection 1 100ml.bag @ 100 mls/hr IVPB Q1H [facility] Rx#: [id number] Propofol 1,000 mg In 25.561 67.958 Empty Bag 1 bag @ Titrate IV .Q0M [facility] Rx#: [id number] Sodium Chloride 0.9% 1, 100 000 ml @ 100 mls/hr IV . Q10H [facility] Rx#:[id number] Tube Feeding 90 270 120 Lipid 1 levETIRAcetam IV 500 mg 1 In Sodium Chloride 0.9% 100 ml @ 400 mls/hr IVPB Q12H [facility] Rx#:[id number] Other 60 90 30 Output: Urine 520 519 152 Other: Voiding Method Indwelling Catheter Indwelling Catheter Indwelling Catheter - Exam GENERAL EXAM: Revealed a 54-year-old female comatose, unresponsive to any deep painful stimuli, on mechanical ventilation. HEAD: Atraumatic, normocephalic. EYES: Pupils are dilated, sluggishly reactive to light. Equal size. NOSE: Clear with pink turbinates. THROAT: No erythema or exudates. Endotracheal tube and orogastric tube are intact. Negative gag reflex. NECK: No masses, no JVD. CHEST: No chest wall deformity. LUNGS: Diminished breath sound bilaterally no crackles or rhonchi or wheezes. CVS: S1 and S2 normal with no audible murmur, regular rhythm. ABDOMEN: Soft nontender no megaly no rebound no guarding. SKIN: No rashes CENTRAL NERVOUS SYSTEM: Patient is unresponsive to any painful stimuli, pupils are dilated and sluggishly reactive to light, patient has negative gag reflex, negative corneals, negative caloric reflex, and she has a right Babinski. Psychiatric: Could not be assessed EXTREMITIES: No clubbing edema or cyanosis. - Labs CBC & Chem 7: 08/16/19 04:43 08/16/19 04:43 Labs: Abnormal Lab Results - Last 24 Hours (Table) 08/15/19 08/15/19 08/15/19 Range/Units 04:05 07:37 12:35 WBC (3.8-10.6) k/uL ABG pO2 113 H (83-108) mmHg ABG O2 Saturation 98.8 H (94-97) % Chloride (98-107) mmol/L Carbon Dioxide (22-30) mmol/L Creatinine (0.52-1.04) mg/dL Glucose (74-99) mg/dL POC Glucose (mg/dL) 139 H (75-99) mg/dL Calcium (8.4-10.2) mg/dL AST (14-36) U/L ALT (4-34) U/L Creatine Kinase 244 H (30-135) U/L Total Protein (6.3-8.2) g/dL Albumin (3.5-5.0) g/dL 08/15/19 08/15/19 08/16/19 Range/Units 18:12 23:57 04:43 WBC (3.8-10.6) k/uL ABG pO2 (83-108) mmHg ABG O2 Saturation (94-97) % Chloride 113 H (98-107) mmol/L Carbon Dioxide 20 L (22-30) mmol/L Creatinine 0.37 L (0.52-1.04) mg/dL Glucose 157 H (74-99) mg/dL POC Glucose (mg/dL) 102 H 126 H (75-99) mg/dL Calcium 7.9 L (8.4-10.2) mg/dL AST 95 H (14-36) U/L ALT 146 H (4-34) U/L Creatine Kinase (30-135) U/L Total Protein 5.6 L (6.3-8.2) g/dL Albumin 3.2 L (3.5-5.0) g/dL 08/16/19 08/16/19 Range/Units 04:43 05:09 WBC 14.1 H (3.8-10.6) k/uL ABG pO2 (83-108) mmHg ABG O2 Saturation (94-97) % Chloride (98-107) mmol/L Carbon Dioxide (22-30) mmol/L Creatinine (0.52-1.04) mg/dL Glucose (74-99) mg/dL POC Glucose (mg/dL) 129 H (75-99) mg/dL Calcium (8.4-10.2) mg/dL AST (14-36) U/L ALT (4-34) U/L Creatine Kinase (30-135) U/L Total Protein (6.3-8.2) g/dL Albumin (3.5-5.0) g/dL Microbiology - Last 24 Hours (Table) 08/14/19 19:34 Gram Stain - Preliminary Sputum Sputum Culture - Preliminary Gram Neg Bacilli 08/14/19 19:51 Blood Culture - Preliminary Blood No Growth after 24 hours Assessment and Plan Assessment: Impression: Cardiopulmonary arrest requiring CPR, epinephrine, intubation and mechanical ventilation. Acute on chronic hypoxic and hypercapnic respiratory failure secondary to above. Suspect severe anoxic brain injury. Severe end-stage COPD History of chronic hypoxic respiratory failure. Tobacco dependence syndrome Benign essential hypertension History of deafness History of migraine cephalgia Restless leg syndrome Insomnia Chronic neck and back pain. Recommendation: Continue ventilatory support. GI and DVT prophylaxis. Continue to hold propofol, urology to readdress her neurological status again today. Continue bronchodilators and steroids Continue enteral feeding. Empiric antibiotics/Rocephin Insulin as per protocol to control blood sugar. We will likely address her condition with the family the next 24 hours, and possibly consider comfort care measures. This will be decided upon further neurological input. Patient is obviously critically ill, critical care time is 32 minutes Time with Patient: Greater than 30
[2019-08-16 12:21] LABS: Glucose,Whole Blood 148 mg/dL (75-99)
--- NOTE | 2019-08-16 12:54 | EEG ---
ELECTROENCEPHALOGRAM REPORT DATE OF SERVICE: 08/16/2019 This is an inpatient EEG performed in the intensive care unit on a 54-year-old female who was brought in for cardiac arrest and found to have positive amphetamine and cocaine in the urine drug screen. The patient has been unresponsive and remained intubated. During this EEG, she apparently did have some spontaneous eye opening. Prior to this EEG, she was started on Keppra 500 mg IV q.12 due to posturing and eye deviation. TECHNICAL REPORT: This is an inpatient EEG performed on the Snapsort EEG monitor with electrodes placed according to the International 10-20 system and a single EKG channel. Simultaneous video EEG monitoring was performed. This EEG was reviewed in both longitudinal bipolar, average referential and transverse montages. Photic stimulation was performed. Hyperventilation was not performed. The recording begins with the patient intubated. Eyes closed. There is notable greater suppression over the left hemisphere compared to the right. Repetitive sharp waves appear over the right parietal occipital lobe. The background frequencies on the right hemisphere are between 6-7 Hz. At 09:02:40 a negative field is noted over the right frontal central parietal head region. In montage view, this maximum negativity appears at C4 electrode placement. Prior to this at 09:20:24 phase reversal was noted over the left central head region. Following this, repetitive phase reversal was noted again to be over the midline vertex and left central head region. At 09:05:24 eye opening is noted spontaneously. The right eye gaze is upward and out to the right and the left eye goes upward and outward to the left. This was associated with some minor muscle movement artifact from eye movements but electrographically was associated with phase reversal at the midline vertex. The background rhythm during this event was 6-7 Hz and did appear bilateral. Frequent phase reversals continued throughout the recording, primarily lateralized along the midline vertex and left central frontal central head region. Photic stimulation was performed at various flash frequencies and failed to produce a consistent driving response. During photic; however, frequent bifrontal central epileptiform activity was noted, often consisting of repetitive, rhythmic and semi rhythmic single sharp and slow wave activity. IMPRESSION: This is an abnormal EEG consisting of asymmetry in the background with greater suppression on the right than the left. Frequent epileptiform activity appears lateralized to the left central and midline vertex occasionally occurring also over the right central head region. A bifrontal central focus appears quite prominent in this EEG for seizure tendency. No abnormalities are noted in the EKG. CLINICAL CORRELATION: This EEG does confirm this patient has increased risk for seizures and needs further medical management as well as neuro imaging studies to rule out possible underlying structural mass lesion. If serial EEGs are recommended and/or clinically needed a more prolonged overnight continuous EEG monitoring could be helpful. MMMYRIAM / ALEXANDREAN: [id number] / KATIE
--- NOTE | 2019-08-16 14:16 | PN ---
PROGRESS NOTE Mihaela is a 54-year-old lady who is admitted to hospital with cardiac arrest. Seemed to have suffered hypoxic encephalopathy. Echocardiogram shows normal LV function. On exam, heart rate is 90 beats per minute. Blood pressure is 120/70,. respiratory rate is 18. Chest exam reveals diminished air entry bilaterally. Heart exam reveals first and second heart sounds. No gallop. No murmur. Abdomen is soft. Exam of the extremities did not reveal any edema. Peripheral pulses are felt. LABS: Show that the hemoglobin is 14, platelet count is 189, creatinine is 0.3, potassium is 4.4. [employer] HE[employer] DIETITIAN exam shows that there is no responsiveness. ASSESSMENT: Status post cardiac arrest. Continue supportive care. Prognosis is poor. MMODL / IJN: [id number] /
--- NOTE | 2019-08-16 16:31 | PN ---
PROGRESS NOTE DATE OF SERVICE: 08/16/2019 CHIEF COMPLAINT: Cardiorespiratory arrest. HISTORY OF PRESENT ILLNESS: This lady is not doing well. She is not sedated. She is not waking up. She is not making purposeful movements. EEG is being done and it shows abnormal electrolyte activity. PHYSICAL EXAMINATION: Vital signs are normal. Breath sounds are heard bilaterally and cardiac exam is normal. Abdomen is soft and there are no masses. IMPRESSION: 1. Cardiorespiratory arrest. 2. Anoxic brain injury. PLAN: Await results of the EEG and continue to follow with intensive medicine and neurology. MMODL / IJN: [id number] /
[2019-08-16 17:53] LABS: Glucose,Whole Blood 142 mg/dL (75-99)
[2019-08-16] MEDS ORDERED: ARTIFICIAL TEARS-HYPROMELLOSE DROPS 15 ML BTL BOTH EYES PRN (20:00)
--- NOTE | 2019-08-16 20:03 | P.PN ---
Subjective Progress Note Date: 08/23/19 Principal diagnosis: Status post cardiac arrest anoxic brain injury Patient continues to be minimally responsive off sedation. Proceed cauldron middle the night of patient with decorticated posturing and fixed eye deviation. Patient started on Keppra IV 500 mg every 12. No further report of posturing since Keppra started. Objective - Vital Signs Vital signs: Vital Signs Temp 98.8 F 08/16/19 16:00 Pulse 84 08/16/19 19:32 Resp 26 H 08/16/19 19:00 BP 116/68 08/16/19 19:00 Pulse Ox 97 08/16/19 19:00 Intake & Output 08/16/19 08/16/19 08/17/19 06:59 18:59 06:59 Intake Total 6066.960 4217 138 Output Total 519 369 30 Balance 8034.789 7242 108 Weight 55.4 kg Intake: IV 1350 1300 100 Sodium Chloride 0.9% 1, 1200 1200 100 000 ml @ 100 mls/hr IV . Q10H [facility] Rx#:[id number] cefTRIAXone 1 gm In 50 Sodium Chloride 0.9% 50 ml @ 100 mls/hr IVPB Q24H [facility] Rx#:[id number] levETIRAcetam IV 500 mg 100 100 In Sodium Chloride 0.9% 100 ml @ 400 mls/hr IVPB Q12H [facility] Rx#:[id number] Intake, IV Titration 67.958 Amount Propofol 1,000 mg In 67.958 Empty Bag 1 bag @ Titrate IV .Q0M [facility] Rx#: [id number] Tube Feeding 270 378 38 Lipid 1 levETIRAcetam IV 500 mg 1 In Sodium Chloride 0.9% 100 ml @ 400 mls/hr IVPB Q12H [facility] Rx#:[id number] Other 90 90 Output: Urine 519 369 30 Other: Voiding Method Indwelling Catheter Indwelling Catheter - Exam Neurological exam 1. Intermittent spontaneous eye opening noted. 2. Gag reflex is intact. 3. Patient withdraws bilaterally to planter stimulation. Plantar responses flexor bilaterally. 4. No ankle clonus elicited. 5. Deep tendon reflexes over the patellar are +2 bilaterally +1 at the arms bilaterally. 6. Pupils are fixed at 5 mm nonreactive. Eyes are deviated forced to the right. Glascow coma scale (9) 1. Eye opening response: Spontaneous (4 points) 2. Verbal response: No response (1. point) 3. Motor response: Withdraws a response to pain (4 points) - Labs CBC & Chem 7: 08/16/19 04:43 08/16/19 04:43 Labs: Abnormal Lab Results - Last 24 Hours (Table) 08/15/19 08/15/19 08/16/19 Range/Units 07:37 23:57 04:43 WBC (3.8-10.6) k/uL ABG pO2 113 H (83-108) mmHg ABG O2 Saturation 98.8 H (94-97) % Chloride 113 H (98-107) mmol/L Carbon Dioxide 20 L (22-30) mmol/L Creatinine 0.37 L (0.52-1.04) mg/dL Glucose 157 H (74-99) mg/dL POC Glucose (mg/dL) 126 H (75-99) mg/dL Calcium 7.9 L (8.4-10.2) mg/dL AST 95 H (14-36) U/L ALT 146 H (4-34) U/L Total Protein 5.6 L (6.3-8.2) g/dL Albumin 3.2 L (3.5-5.0) g/dL 08/16/19 08/16/19 08/16/19 Range/Units 04:43 05:09 12:20 WBC 14.1 H (3.8-10.6) k/uL ABG pO2 (83-108) mmHg ABG O2 Saturation (94-97) % Chloride (98-107) mmol/L Carbon Dioxide (22-30) mmol/L Creatinine (0.52-1.04) mg/dL Glucose (74-99) mg/dL POC Glucose (mg/dL) 129 H 148 H (75-99) mg/dL Calcium (8.4-10.2) mg/dL AST (14-36) U/L ALT (4-34) U/L Total Protein (6.3-8.2) g/dL Albumin (3.5-5.0) g/dL 08/16/19 Range/Units 17:51 WBC (3.8-10.6) k/uL ABG pO2 (83-108) mmHg ABG O2 Saturation (94-97) % Chloride (98-107) mmol/L Carbon Dioxide (22-30) mmol/L Creatinine (0.52-1.04) mg/dL Glucose (74-99) mg/dL POC Glucose (mg/dL) 142 H (75-99) mg/dL Calcium (8.4-10.2) mg/dL AST (14-36) U/L ALT (4-34) U/L Total Protein (6.3-8.2) g/dL Albumin (3.5-5.0) g/dL Microbiology - Last 24 Hours (Table) 08/14/19 19:34 Gram Stain - Preliminary Sputum Sputum Culture - Preliminary Gram Neg Bacilli 08/14/19 19:51 Blood Culture - Preliminary Blood No Growth after 24 hours Assessment and Plan Assessment: There is still very minimal response over the interim since the cardiac arrest. The patient is now on anticonvulsant medication. No further decorticated posturing has been reported since starting Keppra. Her exam today does show now fixed pupils dilated and unresponsive to light. There is only a gag reflex present along with grimacing that was noted and withdrawal bilaterally to plantar stimulation. Assessment 1. Status post cardiac arrest anoxic brain injury with UDS positive for cocaine and amphetamines. 2. Glascow coma scale 8 3. Abnormal EEG consistent with epileptiform activity in the bifrontal lobes 4. Fixed dilated pupils, concern for increasing intra-cranial pressure Plan: 1. Stat computed tomography scan of the head tonight to rule out possible cerebral edema/herniation due to now fixed dilated pupils. 2. Continue with Keppra 500 mg IV every 12 3. Arrange with hospital team and transferred team to consider transfer to higher level care or the patient can get an MRI of the brain while on ventilator. This will be needed if there is decision to move towards comfort ca re. 4. Continue with neuro checks every 2 hours. 5. Continue with supportive care nutritional support and appropriate blood pressure management. This patient's prognosis remains very guarded. Neurology will continue to follow closely. Further recommendations will be made with the team tomorrow for potential transfer. We'll plan on calling the patient's daughter at [phone] Kateryna Cisse M.D. Board Certified in Neurology and Sleep medicine
--- NOTE | 2019-08-16 20:34 | CT ---
EXAMINATION TYPE: CT brain wo con DATE OF EXAM: 08/16/2019 COMPARISON: 08/16/2019 from earlier in the day HISTORY: AMS CT DLP: 1182.[address] of the brain was performed. The ventricles, basal cisterns and sulci overlying the cerebral convexities are within normal limits. There is no evidence for intracranial hemorrhage. Vague area of focal decreased attenuation involving the posterior limb of the right internal capsule may reflect vascular insult. There is decreased attenuation about the periventricular white matter and deep white matter of both c erebral hemispheres, compatible with chronic small vessel ischemia. Differential diagnosis does inclu de demyelination. No mass effects are seen.No midline shift. Osseous calvarium is intact. If symptoms persist consider MRI. IMPRESSION: 1. There is no evidence for intracranial hemorrhage. Vague area of focal decreased attenuation involv ing the posterior limb of the right internal capsule may reflect vascular insult.
[2019-08-17 00:09] LABS: Glucose,Whole Blood 122 mg/dL (75-99)
[2019-08-17 00:15] LABS: Glucose,Whole Blood 127 mg/dL (75-99)
[2019-08-17] MEDS: SODIUM CHLORIDE 0.9% 1,000 ML IV SCH ×2 (00:15→09:45)
[2019-08-17] MEDS: INSULIN ASPART (NovoLOG) 100 UNIT/ML VIAL SQ SCH ×3 (00:16→12:34)
[2019-08-17] MEDS: methylPREDNISolone SOD SUCCI 125 MG/2 ML VIAL IV SCH ×3 (00:17→12:34)
[2019-08-17] MEDS: levETIRAcetam IV 500 MG in SODIUM CHLORIDE 0.9% 100 ML IVPB SCH ×2 (02:17→13:47)
[2019-08-17] MEDS: PROPOFOL 1,000 MG in EMPTY BAG 1 BAG IV SCH (02:54)
[2019-08-17 05:00] LABS: Glucose,Whole Blood 168 mg/dL (75-99)
[2019-08-17 06:23] LABS: African American GFR (CKD) >90 (>60 ml/min/1.73 sqM); Anion Gap 4 mmol/L; Blood Urea Nitrogen 15 mg/dL (7-17); Calcium 7.2 mg/dL (8.4-10.2); Carbon Dioxide 20 mmol/L (22-30); Chloride 112 mmol/L (98-107); Glucose 133 mg/dL (74-99); Non-African American GFR(CKD) >90 (>60 ml/min/1.73 sqM); Sodium 136 mmol/L (137-145)
[2019-08-17 07:50] LABS: HCT 39.6 % (34.0-46.0); MCH 31.8 pg (25.0-35.0); MCHC 32.8 g/dL (31.0-37.0); Mean Platelet Volume 8.1; Platelet Count 180 k/uL (150-450); RBC 4.08 m/uL (3.80-5.40); RDW 15.1 % (11.5-15.5); WBC 9.5 k/uL (3.8-10.6)
[2019-08-17 08:02] LABS: ABG Base Excess 1.4 mmol/L; ABG HCO3 26 mmol/L (21-25); ABG Oxygen Saturation 98.9 % (94-97); ABG PCO2 38 mmHg (35-45); ABG PH 7.43 (7.35-7.45); ABG PO2 106 mmHg (83-108); ABG TCO2 27 mmol/L (19-24); Allen Test Performed? Yes
[2019-08-17] MEDS: IPRATROPIUM-ALBUTEROL 3 ML NEB INHALATION SCH ×2 (08:05→11:08)
--- NOTE | 2019-08-17 08:33 | XR ---
EXAMINATION TYPE: XR chest 1V portable DATE OF EXAM: 08/17/2019 COMPARISON: Prior chest x-ray 08/16/2019 HISTORY: Tube placement TECHNIQUE: Single frontal view of the chest is obtained. FINDINGS: Patient is rotated. NG tube is in place. NG tube coiled within the stomach, distal tip is not included on exam. Endotracheal tube not as well seen due to rotation but thought to be essentiall y stable position. There are overlying artifacts. There is no evident pneumothorax or pleural effusio n. Aorta is dense. Heart size is stable. There is a spinal curvature. IMPRESSION: No acute process. Findings thought to be stable.
[2019-08-17] MEDS: CHLORHEXIDINE GLUCONATE 15 ML CUP MUCOUS MEM SCH (09:45)
[2019-08-17] MEDS: PANTOPRAZOLE 40 MG/10 ML VIAL IV SCH (09:45)
[2019-08-17 10:45] LABS: Lymphocytes # (M) 0.76 k/uL (1.0-4.8); Monocytes # (M) 0.38 k/uL (0-1.0); Neutrophils # (M) 8.36 k/uL (1.3-7.7); Neutrophils % (M) 88 %; Nucleated Red Blood Cells 0 /100 WBC (0-0); Total Cells Counted 100
[2019-08-17 11:17] VITALS: RESP 22
[2019-08-17 11:29] LABS: Glucose,Whole Blood 136 mg/dL (75-99)
--- NOTE | 2019-08-17 11:34 | P.PN ---
Subjective Progress Note Date: 08/17/19 Principal diagnosis: Cardiopulmonary arrest This is a 54-year-old female with known history of severe COPD, [id number] smoking history, tobacco dependence syndrome, ADHD, bipolar disorder, general anxiety disorder, hypertension, migraine cephalgia, hearing impairment, patient is on home oxygen, she is also maintained on prednisone at 5 mg daily. She was last admitted to [facility] in early May of 2019, and she was seen by Dr. Graham and Dr. Montero on consultation. Patient has been doing fairly fine and coping well with her COPD, and according to the family she was fine until 5 minutes prior were and she was found unresponsive. CPR was started by family members. EMS arrived to the scene within 5 minutes, and started CPR intubated the patient, and she was found in pulseless electrical activity. She was given 2 rounds of epinephrine while performing CPR. And there was a spontaneous return of circulation. Patient remained unresponsive, arrived to the ER, chest x-ray showed no evidence of pulmonary edema, no evidence of pneumonia, however her ABG reflected a severe hypercapnia and severe respiratory acidosis with a pO2 of over 400, pCO2 of 74 pH of 7.14. The rest of the labs were basically unremarkable including relatively normal CBC. Normal basic metabolic profile. Normal troponin. Negative terrell virus PCR. Positive drug screen for cocaine, amphetamine, and marijuana. Patient was admitted to the intensive care unit, CT of the brain was unremarkable. I was asked to see the patient on consultation. Presently she is on mechanical ventilation, and her assist-control rate is 20 to tidal volume is 400 FiO2 is 40% and PEEP is 5. ABG showed a pO2 of 99 pCO2 of 41 pH of 7.35. Patient did not require any pressors. Her IV fluid is 0.9 normal saline at 100 mL per hour, he is on propofol at 25 mcg/kg/m. She is sedated, not responding to any painful stimuli. Hence the plan is to interrupt sedation, and hopefully assess mental status off propofol. Reevaluated today on 08/16/19, patient remains in the ICU, intubated and m echanically ventilated. Patient is on assist control rate of 20 to tidal volume is 400 FiO2 is 40% PEEP is 5. ABG showed a pO2 of 113 pCO2 of 40 0 pH of 7.37. Patient is not requiring any pressors. She is off the prevent, and she is not responding to any deep painful stimuli. Sedation has been on hold since yesterday. Patient is noted to have intermittent episodes of both sharing. She is not following any commands. She has negative gag reflex, negative corneals, and negative caloric. She was seen by neurology, and felt to have anoxic brain injury status post cardiac arrest. At any rate patient is to be further evaluated by neurology, and at this point it seems like the patient has no potential of having any significant recovery or any potential of having a good quality of life. May have to seriously consider approaching the family about CODE STATUS and possibly comfort care measures. Hopefully this will be decided upon in the next 24 hours. In the meantime patient is supposed to have an EEG today, and her CT of the brain done yesterday showed no significant findings. Patient was reevaluated today on 08/17/19, patient remains in the ICU, intubated and mechanically ventilated. Her ventilator settings are assist control rate of 22 tidal volume is 400 FiO2 is 35% and her PEEP is 5. ABG showed a pO2 of 106 pCO2 of 38 pH of 7.43. Patient is hemodynamically stable, was off sedation for 24 hours yesterday, and there was no evidence of any neurological responses. She had a Glascow coma score of 8. Patient is status post cardiac arrest and anoxic brain injury with positive drug screen for cocaine and amphetamine and marijuana. Her EEG showed some epileptiform activity in the bifrontal lobes, and the patient was placed on Keppra. Patient had some gagging on the endotracheal tube last night, and required sedation again with propofol which I have discontinued this morning again. Not much of a change in her neurological status, patient is mostly grimacing to painful stimuli. Her pupils remain dilated, but reactive to light. Patient had upward deviation of both eyes with caloric test. Opens eyes with painful stimuli. But clearly noted to have upward gaze deviation. Chest x-ray today showed no evidence of significantdisease. Patient is still on IV fluid at 100 mL per hour, 0.9 normal saline. All labs including basic metabolic profile and CBC are relatively unremarkable. Patient was seen by neurology yesterday, and the recommendation was to seriously consider transferring the patient to a tertiary care center where MRI could be done while the patient is intubated. And recommending Keppra 500 mg IV twice a day, also recommending repeat EEG and possibly overnight EEG. Patient is to be seen by neurology again today, in the meantime we'll try to assess and the patient could be accepted at a tertiary care center, and admitting physician was made aware by the nurses about the neurology recommendation. I will discuss her condition with any clay plant treater in a tertiary care center if needed. Objective - Vital Signs Vital signs: Vital Signs Temp 98.1 F 08/17/19 08:00 Pulse 99 08/17/19 10:00 Resp 50 H 08/17/19 10:00 BP 153/87 08/17/19 10:00 Pulse Ox 98 08/17/19 10:00 Intake & Output 08/16/19 08/17/19 08/17/19 18:59 06:59 18:59 Intake Total 1769 1946 551.229 Output Total 369 365 183 Balance 1400 1581 368.229 Weight 60.3 kg Intake: IV 1300 1400 400 Sodium Chloride 0.9% 1, 1200 1200 400 000 ml @ 100 mls/hr IV . Q10H [facility] Rx#:[id number] cefTRIAXone 1 gm In 100 Sodium Chloride 0.9% 50 ml @ 100 mls/hr IVPB Q24H [facility] Rx#:[id number] levETIRAcetam IV 500 mg 100 100 In Sodium Chloride 0.9% 100 ml @ 400 mls/hr IVPB Q12H [facility] Rx#:[id number] Intake, IV Titration 0 37.229 Amount Propofol 1,000 mg In 0 37.229 Empty Bag 1 bag @ Titrate IV .Q0M [facility] Rx#: [id number] Tube Feeding 378 456 114 Lipid 1 levETIRAcetam IV 500 mg 1 In Sodium Chloride 0.9% 100 ml @ 400 mls/hr IVPB Q12H [facility] Rx#:[id number] Other 90 90 Output: Urine 369 365 183 Other: Voiding Method Indwelling Catheter Indwelling Catheter Indwelling Catheter - Exam GENERAL EXAM: Revealed a 54-year-old female comatose, on mechanical ventilation. No further decorticated posturing noted since the patient was placed on Keppra. HEAD: Atraumatic, normocephalic. EYES: Pupils are dilated, sluggishly reactive to light. Equal size. NOSE: Clear with pink turbinates. THROAT: No erythema or exudates. Endotracheal tube and orogastric tube are intact. Negative gag reflex. Although the patient was gagging on the endotracheal tube yesterday, but not this morning. NECK: No masses, no JVD. CHEST: No chest wall deformity. LUNGS: Diminished breath sound bilaterally no crackles or rhonchi or wheezes. CVS: S1 and S2 normal with no audible murmur, regular rhythm. ABDOMEN: Soft nontender no megaly no rebound no guarding. SKIN: No rashes CENTRAL NERVOUS SYSTEM: Patient is unresponsive to any painful stimuli, pupils are dilated, but reactive to light. patient has negative gag reflex, negative corneals, upward deviation of eyes with caloric testing. In both ears. Deep tendon reflexes 2+ and lower extremities. Eyes deviated upwards. Positive withdrawal bilaterally to plantar stimulation. Patient is noted to have intermittent spontaneous eye opening, Glascow coma score is about 8 Psychiatric: Could not be assessed EXTREMITIES: No clubbing edema or cyanosis. - Labs CBC & Chem 7: 08/17/19 06:56 08/17/19 05:16 Labs: Abnormal Lab Results - Last 24 Hours (Table) 08/16/19 08/16/19 08/17/19 Range/Units 12:20 17:51 00:08 Neutrophils # (Manual) (1.3-7.7) k/uL Lymphocytes # (Manual) (1.0-4.8) k/uL ABG HCO3 (21-25) mmol/L ABG Total CO2 (19-24) mmol/L ABG O2 Saturation (94-97) % Sodium (137-145) mmol/L Chloride (98-107) mmol/L Carbon Dioxide (22-30) mmol/L Creatinine (0.52-1.04) mg/dL Glucose (74-99) mg/dL POC Glucose (mg/dL) 148 H 142 H 122 H (75-99) mg/dL Calcium (8.4-10.2) mg/dL 08/17/19 08/17/19 08/17/19 Range/Units 00:14 04:58 05:16 Neutrophils # (Manual) (1.3-7.7) k/uL Lymphocytes # (Manual) (1.0-4.8) k/uL ABG HCO3 (21-25) mmol/L ABG Total CO2 (19-24) mmol/L ABG O2 Saturation (94-97) % Sodium 136 L (137-145) mmol/L Chloride 112 H (98-107) mmol/L Carbon Dioxide 20 L (22-30) mmol/L Creatinine 0.31 L (0.52-1.04) mg/dL Glucose 133 H (74-99) mg/dL POC Glucose (mg/dL) 127 H 168 H (75-99) mg/dL Calcium 7.2 L (8.4-10.2) mg/dL 08/17/19 08/17/19 Range/Units 06:56 07:59 Neutrophils # (Manual) 8.36 H (1.3-7.7) k/uL Lymphocytes # (Manual) 0.76 L (1.0-4.8) k/uL ABG HCO3 26 H (21-25) mmol/L ABG Total CO2 27 H (19-24) mmol/L ABG O2 Saturation 98.9 H (94-97) % Sodium (137-145) mmol/L Chloride (98-107) mmol/L Carbon Dioxide (22-30) mmol/L Creatinine (0.52-1.04) mg/dL Glucose (74-99) mg/dL POC Glucose (mg/dL) (75-99) mg/dL Calcium (8.4-10.2) mg/dL Microbiology - Last 24 Hours (Table) 08/14/19 19:34 Gram Stain - Final Sputum Sputum Culture - Final Klebsiella oxytoca 08/14/19 19:51 Blood Culture - Preliminary Blood No Growth after 48 hours Assessment and Plan Assessment: Impression: Cardiopulmonary arrest requiring CPR, epinephrine, intubation and mechanical ventilation. Acute on chronic hypoxic and hypercapnic respiratory failure secondary to above. Suspect severe anoxic brain injury. Abnormal EEG for possible epileptiform focus, hence patient was placed on Keppra. Decorticate posturing, resolved today. Severe end-stage COPD History of chronic hypoxic respiratory failure. Tobacco dependence syndrome Benign essential hypertension History of deafness History of migraine cephalgia Restless leg syndrome Insomnia Chronic neck and back pain. Recommendation: Continue ventilatory support. No change in ventilatory settings today. GI and DVT prophylaxis. Will hold all narcotics and sedatives again today. Continue bronchodilators and steroids Continue enteral feeding. Empiric antibiotics/Rocephin Insulin as per protocol to control blood sugar. Clinically, her overall prognosis is extremely poor and guarded, Discussed her condition with the ICU fellow at [facility], and based on the recommendation of the neurologist on the case, would proceed with transferring the patient to [facility]. Again the case was fully discussed with the intensive care unit fellow at [facility]. Critical care time is 45 minutes Time with Patient: Greater than 30
[2019-08-17 12:24] VITALS: TEMP 98.4
[2019-08-17 13:25] VITALS: BP 133/89; PULSE 98
--- NOTE | 2019-08-17 16:38 | PN ---
PROGRESS NOTE DATE OF SERVICE: 08/17/2019. CHIEF COMPLAINT: Cardiorespiratory arrest. HISTORY OF PRESENT ILLNESS: This lady's condition is about the same. She is triggering the ventilator, but she is not regaining consciousness. There is no sign of purposeful movement activity. Case discussed with a neurologist last night and it is her suggestion that before supportive measures are withdrawn, she should have an MRI. This has to be done on a ventilator and cannot be performed here. It was discussed that we could transfer her to a tertiary hospital. Neurology wants to wait a day or so. However, given the holiday, it is probably best to make these arrangements this week. REVIEW OF SYSTEMS: Unobtainable. PHYSICAL EXAMINATION: Blood pressure is 102/64. Gaze is still conjugate and pupils are fixed. She is triggering the ventilator. Breath sounds are heard bilaterally and cardiac exam is normal. The abdomen is soft and she is not responsive to pain. IMPRESSION: Cardiorespiratory arrest with encephalopathy. PLAN: Continue to provide supportive care and consider transfer. MMODL / IJN: [id number] /
--- NOTE | 2019-08-17 19:14 | PN ---
PROGRESS NOTE Mihaela is a 54-year-old lady who is admitted to hospital with cardiac arrest. There is no spontaneous activity at the moment. Neurology has evaluated the patient. The patient has anoxic brain injury from cardiac standpoint. Her LV function is normal. She did not have any documented cardiac arrhythmias. On exam, afebrile. Heart rate is 80 beats per minute. Blood pressure is 140/82, respiratory rate is 22. She is on FiO2 of 35. Mechanically ventilated. Chest exam reveals good air entry bilaterally. Heart exam reveals first and second heart sounds. No gallop. Exam of extremities did not reveal any edema. ASSESSMENT: 1. Status post cardiac arrest. Plan is to continue supportive care. Prognosis is guarded. 2. Hypoxic encephalopathy. PLAN: No further cardiac intervention. We will see the patient on an as-needed basis at this time. MMNATALYAL / ALEXANDREAN: [id number] /
--- NOTE | 2019-08-18 20:08 | DS ---
DISCHARGE SUMMARY CHIEF COMPLAINT: Cardiorespiratory arrest and coma. HISTORY OF PRESENT ILLNESS AND PHYSICAL EXAMINATION: Details of this lady's history and physical can be found in the initial workup. LABORATORY STUDIES: While she was in the hospital she had laboratory studies, details of which can be found in the laboratory section of her chart. COURSE IN THE HOSPITAL: After admission she was placed on bedrest, started on intravenous fluids and placed on a ventilator for ventilator support in the ICU. During her stay, she never regained significant neurologic activity and continued on the ventilator. She was followed by Neurology. Her EEG demonstrated some electrical activity, but it was definitely abnormal. Decision was made that she should be transferred to a tertiary hospital, where she could receive an MRI while on a ventilator. Arrangements were made on August 16 for her to go to [facility]. FINAL DIAGNOSES: 1. Cardiorespiratory arrest. 2. Anoxic brain injury. OPERATIONS: None. CONSULTATIONS: 1. Intensive Medicine. 2. Neurology. MMMYRIAM / HAZEL: [id number] /
== END 2019-08-17 15:21 | disposition short-term general hospital (02) | DRG 296 ==
LOC: SUPCPDRO 19:19 → EC 19:19 → 2SICU 21:10
PROVIDERS: ADMIT Family Medicine; ATTEND Family Medicine
PROC: 0BH17EZ Insertion of Endotracheal Airway into Trachea, Via Natural or Artificial Opening (ICD-10-PCS; principal; 2019-08-14)
PROC: 5A1945Z Respiratory Ventilation, 24-96 Consecutive Hours (ICD-10-PCS; principal; 2019-08-14)
DX: I46.9 Cardiac arrest, cause unspecified (principal); J96.21 Acute and chronic respiratory failure with hypoxia; J96.22 Acute and chronic respiratory failure with hypercapnia; E87.2 Acidosis; G93.1 Anoxic brain damage, not elsewhere classified; J90 Pleural effusion, not elsewhere classified; J44.9 Chronic obstructive pulmonary disease, unspecified; E78.5 Hyperlipidemia, unspecified; F12.10 Cannabis abuse, uncomplicated; F14.10 Cocaine abuse, uncomplicated; F15.10 Other stimulant abuse, uncomplicated; Z11.59 Encounter for screening for other viral diseases; F17.210 Nicotine dependence, cigarettes, uncomplicated; F32.9 Major depressive disorder, single episode, unspecified; F41.0 Panic disorder [episodic paroxysmal anxiety]; F41.1 Generalized anxiety disorder; G25.81 Restless legs syndrome; G43.909 Migraine, unspecified, not intractable, without status migrainosus; G47.00 Insomnia, unspecified; G89.29 Other chronic pain; I10 Essential (primary) hypertension; I25.2 Old myocardial infarction; H91.93 Unspecified hearing loss, bilateral; F90.9 Attention-deficit hyperactivity disorder, unspecified type; M54.2 Cervicalgia; M54.9 Dorsalgia, unspecified; R40.2424 Glasgow coma scale score 9-12, 24 hours or more after hospital admission; Z99.81 Dependence on supplemental oxygen; Z79.52 Long term (current) use of systemic steroids; Z79.891 Long term (current) use of opiate analgesic; Z79.899 Other long term (current) drug therapy; Z87.01 Personal history of pneumonia (recurrent); Z87.898 Personal history of other specified conditions; Z80.9 Family history of malignant neoplasm, unspecified
CPT/HCPCS: 36415; 36600; 70450; 70496; 70498; 71045; 80048; 80053; 80306; 80320; 80329; 81001; 82550; 82728; 82805; 83520; 83605; 83615; 83735; 84145; 84484; 85025; 85027; 85610; 85730; 86140; 87040; 87070; 87077; 87186; 87205; 87635; 93005; 93306; 94002; 94003; 94640; 95816; 96374; 96375; 99291